=== PATIENT | female | born 1960 | race Caucasian/White ===

== ENCOUNTER 2019-11-09 16:31 | Outpatient (CLI) | payer OTHER, SELFPAY ==
--- NOTE | ~2019-11-09 | XR_ITS ---
EXAMINATION: XR chest 2V DATE: 11/09/2019 16:59 INDICATION: Upper respiratory infection, cough, shortness of breath TECHNIQUE: PA and lateral views of the chest are obtained. COMPARISON: None available FINDINGS: The lungs are free of acute opacities. There is no pleural effusion or pneumothorax. The ca rdiomediastinal silhouette is normal. There is mild thoracic spondylosis. IMPRESSION: 1. No acute cardiopulmonary abnormality. Reviewed, dictated and finalized at location A. [employer]
[2019-11-09 16:58] LABS: Basophils Absolute Auto 0.03 K/mm3 (0.00-0.10); Basophils Percent Auto 0.5 % (0.0-1.0); Eosinophils Percent Auto 1.6 % (1.0-6.0); Hematocrit 47.4 % (35.0-49.0); Hemoglobin 14.9 g/dL (12.0-15.0); Immature Granulocyte Absolute 0.02 K/mm3 (0.00-0.00); Immature Granulocyte Percent A 0.3 % (0.0-0.0); Lymphocytes Absolute Auto 2.41 K/mm3 (1.10-4.50); Lymphocytes Percent Auto 39.7 % (18.0-42.0); Mean Corpuscular HGB Conc 31.4 g/dL (32.0-36.0); Mean Corpuscular Hemoglobin 28.8 pg (27.0-31.0); Mean Corpuscular Volume 91.5 fL (78.0-102.0); Mean Platelet Volume 8.7 fl (9.2-11.8); Monocytes Absolute Auto 0.74 K/mm3 (0.10-0.90); Monocytes Percent Auto 12.2 % (2.0-11.0); Neutrophils Absolute Auto 2.8 K/mm3 (1.7-7.2); Neutrophils Percent Auto 45.7 % (50.0-70.0); Platelet Count Result 308 K/mm3 (150-420); Red Blood Count 5.18 M/mm3 (4.20-5.40); Red Cell Distribution Width 14.1 % (11.6-14.4); White Blood Count 6.1 K/mm3 (4.8-10.8)
[2019-11-09 17:14] LABS: Alanine Aminotransferase 36 U/L (14-59); Alkaline Phosphatase 104 U/L (46-116); Anion Gap 14.4 mmol/L (7-16); Aspartate Amino Transferase 27 U/L (15-37); Bilirubin,Total 0.3 mg/dL (0.00-1.00); Blood Urea Nitrogen 12 mg/dL (7-18); Carbon Dioxide 33 mmol/L (21-32); Chloride 100 mmol/L (98-108); Estimated Glomerular Filt Rate 59; Glucose 127 mg/dL (70-99); Osmolality Calculated 299 mOsm/kg (285-295); Potassium 3.4 mmol/L (3.5-5.1); Sodium 144 mmol/L (136-145); Total Protein 7.9 g/dL (6.4-8.2)
== END 2019-11-09 16:32 | disposition home or self-care (01) ==
LOC: CHSLAB 16:38
PROVIDERS: PCP Internal Medicine; Visit Provider Nurse Practitioner Family
DX: J06.9 Acute upper respiratory infection, unspecified (principal); J44.9 Chronic obstructive pulmonary disease, unspecified
CPT/HCPCS: 36415; 71046; 80053; 85025; 87040

== ENCOUNTER 2019-12-05 11:42 | Outpatient (CLI) | payer OTHER, SELFPAY ==
--- NOTE | ~2019-12-05 | XR_ITS ---
EXAMINATION: XR chest 2V DATE: 12/05/2019 11:59 INDICATION: Cough and fever TECHNIQUE: PA and lateral views of the chest are obtained. COMPARISON: 11/09/2019 FINDINGS: Patchy airspace opacities have developed in the left upper lung zone and right mid/lower zoë ng zone. There is no pleural effusion or pneumothorax. The cardiomediastinal silhouette is normal. Th ere is mild thoracic spondylosis. IMPRESSION: 1. Patchy opacities of the lungs, likely infectious. Recommend followup radiographs in 10-14 days aft er appropriate therapy to evaluate for improvement/resolution. Reviewed, dictated and finalized at location B. IMPRESSION: 1. Patchy opacities of the lungs, likely infectious. Recommend followup radiogr aphs in 10-14 days after appropriate therapy to evaluate for improvement/resolu tion.
[2019-12-05 11:52] LABS: Basophils Absolute Auto 0.04 K/mm3 (0.00-0.10); Basophils Percent Auto 0.3 % (0.0-1.0); Eosinophils Absolute Auto 0.22 K/mm3 (0.02-0.50); Eosinophils Percent Auto 1.5 % (1.0-6.0); Hematocrit 44.1 % (35.0-49.0); Hemoglobin 14.1 g/dL (12.0-15.0); Immature Granulocyte Absolute 0.07 K/mm3 (0.00-0.00); Immature Granulocyte Percent A 0.5 % (0.0-0.0); Lymphocytes Percent Auto 19.7 % (18.0-42.0); Mean Corpuscular Hemoglobin 29.5 pg (27.0-31.0); Mean Corpuscular Volume 92.3 fL (78.0-102.0); Mean Platelet Volume 8.9 fl (9.2-11.8); Monocytes Absolute Auto 1.44 K/mm3 (0.10-0.90); Monocytes Percent Auto 9.8 % (2.0-11.0); Neutrophils Absolute Auto 10.1 K/mm3 (1.7-7.2); Neutrophils Percent Auto 68.2 % (50.0-70.0); Platelet Count Result 326 K/mm3 (150-420); Red Blood Count 4.78 M/mm3 (4.20-5.40); Red Cell Distribution Width 14.8 % (11.6-14.4); White Blood Count 14.7 K/mm3 (4.8-10.8)
[2019-12-05 12:11] LABS: Influenza Control Valid (Valid)
== END 2019-12-05 11:43 | disposition home or self-care (01) ==
LOC: CHSLAB 11:44
PROVIDERS: PCP Internal Medicine; Visit Provider Internal Medicine
DX: R05 Cough (principal); R50.9 Fever, unspecified
CPT/HCPCS: 36415; 71046; 85025; 87804

== ENCOUNTER 2021-03-26 10:33 | Outpatient (RCR) | payer BC, SELFPAY ==
[2021-03-26 10:56] VITALS: BMI 46.0
[2021-03-26 11:00] VITALS: BMI 46.0
== END 2021-06-15 11:46 | disposition home or self-care (01) ==
LOC: ANHDMC 10:33
PROVIDERS: PCP Internal Medicine; Visit Provider Internal Medicine
DX: E11.9 Type 2 diabetes mellitus without complications (principal); Z71.3 Dietary counseling and surveillance
CPT/HCPCS: 97802

== ENCOUNTER 2021-06-30 18:31 | Outpatient (CLI) | payer BC, SELFPAY ==
--- NOTE | ~2021-06-30 | XR_ITS ---
EXAMINATION: XR chest 2V DATE: 06/30/2021 18:48 INDICATION: Chest pain, pneumonia follow-up TECHNIQUE: PA and lateral views of the chest are obtained. COMPARISON: 12/05/2019 FINDINGS: The lungs are free of acute opacities. There is no pleural effusion or pneumothorax. The ca rdiomediastinal silhouette is normal. There is mild thoracic spondylosis. IMPRESSION: 1. No acute cardiopulmonary abnormality. Reviewed, dictated and finalized at location A.
== END 2021-06-30 18:32 | disposition home or self-care (01) ==
PROVIDERS: PCP Internal Medicine
DX: J44.1 Chronic obstructive pulmonary disease with (acute) exacerbation (principal)
CPT/HCPCS: 71046

== ENCOUNTER 2021-07-14 08:27 | Outpatient (RCR) | payer BC, SELFPAY | END 2021-09-28 13:57 | disposition home or self-care (01) | LOC: ANHDMC 08:27 | PROVIDERS: PCP Internal Medicine; Visit Provider Internal Medicine | DX: E11.9 Type 2 diabetes mellitus without complications (principal) | CPT/HCPCS: 99199 ==

== ENCOUNTER 2021-12-25 07:53 | Outpatient (CLI) | payer BC, SELFPAY ==
--- NOTE | 2022-01-04 08:46 | WPDSLEEPSTUD ---
Sleep Study Date of Study: 12/25/21 Ordering Provider: Lucio Bui MD Interpreting Physician: Courtney Britton MD Sleep Study Type: Polysomnogram Height: 1.6 m Weight: 118.026 kg Body Mass Index: 46.0 Neck Circumference (inches): 22 [place]: 12 Reason for Sleep Study History of severe obstructive sleep apnea with difficultly using PAP, wants to try treatment again. * 04/29/2018, full night CPAP titration at [facility] CPAP titrated 19 cm at the highest,, switched to BiPAP 16/12 gradually increased to 18/12, with an acceptable pressure of BIPAP 20/14 with a small amount of non-supine REM. BMI was 44 at the time of the this study. No suuplemental O2 was used. * 02/03/2018, basic sleep study with AHI of 86.1 Sleep History Damaris Jacinto is a 61 year old woman with severe obstructive sleep apnea who could not use PAP in the past due to claustrophobia. She has COPD on O2 around the clock, and morbid obesity. She wakes up throughout the night including lugger hours. She has excessive daytime sleepiness. She occasionally awakens from sleep feeling short of breath, and occasionally awakens at night with heartburn, belching or coughing. She frequently snores, and is constantly loud enough that others complain about it. She frequently has trouble sleeping with a cold but this has improved since she started wearing oxygen at night. She frequently wakes up gasping for breath at night. She occasionally has breathing problems at night observed by others. She rarely sweats excessively at night. She occasionally notices her heart pounding or beating irregularly at night. She frequently falls asleep during the day, frequently falls asleep involuntarily but denies falling asleep while driving. She rarely has loss of muscle tone with strong emotion. She does not work so she does not notice difficulty in the daytime due to excessive sleepiness. She does not feel paralyzed on waking or falling asleep. She rarely has vivid dreamlike scenes upon awakening or falling asleep. She rarely feels afraid to go to sleep. She rarely has nightmares. She rarely remembers her dreams and rarely has racing thoughts. She occasionally feels sad or depressed. She rarely has anxiety. She frequently has muscular tension and frequently notices parts of her body jerking. She rarely kicks at night. She frequently has crawling and aching feelings in her legs, occasionally has leg pain at night. She denies morning jaw pain. She does not grind her teeth during sleep. She occasionally is bothered by pain during the day and occasionally awakened by pain at night. She rarely wakes up feeling stiff the morning. She occasionally wakes up with sore achy muscles. She rarely wakes up with pain in the neck and spine. She has bowel disturbances and abdominal pains. She has rare morning headaches. She rarely awakens feeling refreshed. She rarely has memory or concentration problem. Normal bedtime is 10:00 p.m., falling asleep within 10 minutes, typically waking 2-3 times at night for 15 minutes or longer. While awake, she goes to the bathroom and does a nebulized treatment. She wakes the morning at 7:00 a.m.. Her weekend schedule is similar. Her sleep is often disturbed by her oxygen cannula coming off. She takes naps in the afternoon evening. A short nap may be refreshing. She is usually drowsy for 1 hour on waking. She feels better in the morning compared to other times of day. Habits: Tobacco 4 cigarettes per day. No caffeine, alcohol or recreational drugs. [facility] Past Medical History Medical History (Updated 01/04/22 @ 08:52 by Courtney Britton MD) Acute otitis externa of left ear CAD (coronary artery disease) s/p PCI COPD (chronic obstructive pulmonary disease) Depression GERD (gastroesophageal reflux disease) HLD (hyperlipidemia) HTN (hypertension) Noncompliance Obstructive sleep apnea Oxygen dependent PAD (peripheral artery disease) s/p RLE ang
[2022-01-04 09:41] VITALS: BMI 46.0
== END 2021-12-26 06:44 | disposition home or self-care (01) ==
LOC: ANHCSM 07:54
PROVIDERS: PCP Internal Medicine; Visit Provider Internal Medicine Pulmonary Disease
DX: G47.33 Obstructive sleep apnea (adult) (pediatric) (principal); E66.01 Morbid (severe) obesity due to excess calories; Z68.42 Body mass index [BMI] 45.0-49.9, adult
CPT/HCPCS: 95810

== ENCOUNTER 2022-03-05 07:30 | Outpatient (CLI) | payer BC, SELFPAY ==
--- NOTE | 2022-03-30 14:14 | WPDSLEEPSTUD ---
Sleep Study Date of Study: 03/05/22 Ordering Provider: Brandon Urbina APRN Interpreting Physician: Priscila Turner DO Sleep Study Type: BiPAP Titration Height: 1.6 m Weight: 117.934 kg Body Mass Index: 46.0 Neck Circumference (inches): 22 [place]: 12 Reason for Sleep Study This basic nocturnal polysomnogram on December 25, 2021 shows severe obstructive sleep apnea syndrome, apnea-hypopnea index is 82.2, profound hypoxemia to 59%, and 47.3% of the night spent below 88%.??Oxygen was used to allow her to fall asleep as she uses oxygen at home around the clock.? This was restarted at 1 L/min as she had sustained hypoxemia below 88%.? She was eventually titrated up to 5 L/min. Sleep History Damaris Jacinto is a 61 year old woman with severe obstructive sleep apnea who could not use PAP in the past due to claustrophobia.? She has COPD on O2 around the clock, and morbid obesity. ? 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 She has excessive daytime sleepiness.? She occasionally awakens from sleep feeling short of breath, and occasionally awakens at night with heartburn, belching or coughing.? She frequently snores, and is constantly loud enough that others complain about it.? She frequently has trouble sleeping with a cold but this has improved since she started wearing oxygen at night.? She frequently wakes up gasping for breath at night.? She occasionally has breathing problems at night observed by others.? She rarely sweats excessively at night.? She occasionally notices her heart pounding or beating irregularly at night.? She frequently falls asleep during the day, frequently falls asleep involuntarily but denies falling asleep while driving.? She rarely has loss of muscle tone with strong emotion.? She does not work so she does not notice difficulty in the daytime due to excessive sleepiness.? She does not feel paralyzed on waking or falling asleep.? She rarely has vivid dreamlike scenes upon awakening or falling asleep.? She rarely feels afraid to go to sleep.? She rarely has nightmares.? She rarely remembers her dreams and rarely has racing thoughts.? She occasionally feels sad or depressed.? She rarely has anxiety.? She frequently has muscular tension and frequently notices parts of her body jerking.? She rarely kicks at night.? She frequently has crawling and aching feelings in her legs, occasionally has leg pain at night.? She denies morning jaw pain.? She does not grind her teeth during sleep.? She occasionally is bothered by pain during the day and occasionally awakened by pain at night.? She rarely wakes up feeling stiff the morning.? She occasionally wakes up with sore achy muscles.? She rarely wakes up with pain in the neck and spine.? She has bowel disturbances and abdominal pains. ? She has rare morning headaches.? She rarely awakens feeling refreshed.? She rarely has memory or concentration problem. Normal bedtime is 10:00 p.m., falling asleep within 10 minutes, typically waking 2-3 times at night for 15 minutes or longer.? While awake, she goes to the bathroom and does a nebulized treatment.? She wakes the morning at 7:00 a.m..? Her weekend schedule is similar.? Her sleep is often disturbed by her oxygen cannula coming off. She takes naps in the afternoon evening.? A short nap may be refreshing.? She is usually drowsy for 1 hour on waking.? She feels better in the morning compared to other times of day. Habits: ? Tobacco 4 cigarettes per day.? No caffeine, alcohol or recreational drugs. [facility] Past Medical History Medical History Acute otitis externa of left ear CAD (coronary artery disease) s/p PCI COPD (chronic obstructive pulmonary disease) Depression GERD (gastroesophageal reflux disease) HLD (hyperlipidemia) HTN (hypertension) Noncompliance Obstructive sleep apnea Oxygen dependent PAD (peripheral artery disease) s/p RLE angioplasty Family History Famil
[2022-03-30 23:40] VITALS: BMI 46.0
== END 2022-03-06 06:03 | disposition home or self-care (01) ==
LOC: ANHCSM 07:30
PROVIDERS: PCP Internal Medicine; Visit Provider Nurse Practitioner Family
DX: G47.33 Obstructive sleep apnea (adult) (pediatric) (principal)
CPT/HCPCS: 95811

== ENCOUNTER 2022-05-18 08:46 | Outpatient (CLI) | payer BC, SELFPAY ==
--- NOTE | ~2022-05-18 | CT_ITS ---
EXAMINATION: CT lung screening DATE: 05/18/2022 09:05 INDICATION: Personal history of nicotine dependence, current smoker with 40 pack year history TECHNIQUE: Computed tomography (CT) of the chest was performed without intravenous contrast. The dose -length product (DLP) was 217.74 mGy-cm. 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 COMPARISON: None FINDINGS: There is mild emphysema. There is a 4 mm nodule in the right upper lobe on image 54. There is mild atelectasis of the lingula and lower lobes. Calcified pulmonary nodules are consistent with o ld granulomatous disease. No pathologically enlarged thoracic lymph nodes are identified. The heart s ize is normal. Calcified coronary artery atherosclerosis is noted. There is mild thoracic spondylosis . There is an 11 mm soft tissue density mass of the left adrenal gland. IMPRESSION: 1. Lung-RADS category 2S: Benign appearance or behavior. Continue annual screening with noncontrast l ow-dose chest CT in 12 months. 2. 11 mm soft tissue density mass of the left adrenal gland, probable adenoma. Attention on next lung cancer screening CT is recommended. Reviewed, dictated and finalized at location B. IMPRESSION: 1. Lung-RADS category 2S: Benign appearance or behavior. Continue annual screen ing with noncontrast low-dose chest CT in 12 months. 2. 11 mm soft tissue density mass of the left adrenal gland, probable adenoma. Attention on next lung cancer screening CT is recommended.
== END 2022-05-18 08:47 | disposition home or self-care (01) ==
LOC: ANHIMG 08:50
PROVIDERS: PCP Internal Medicine; Visit Provider Internal Medicine Pulmonary Disease
DX: Z12.2 Encounter for screening for malignant neoplasm of respiratory organs (principal); Z87.891 Personal history of nicotine dependence; E27.9 Disorder of adrenal gland, unspecified
CPT/HCPCS: 71271

== ENCOUNTER 2022-06-21 08:37 | Outpatient (CLI) | payer BC, SELFPAY ==
--- NOTE | 2022-06-21 09:50 | EST_ITS ---
Patient Info Name: Damaris Jacinto Age: 61 years : 1960 Gender: Female Ht: 63 in Wt: 229 lbs BSA: 2.20 m2 HR: 93 bpm BP: 133 / 67 mmHg Heart Rhythm: Sinus Rhythm Technical Quality: Excellent Exam Date: 06/21/2022 10:03 AM Exam Location: [facility] Patient Status: Outpatient Admit Date: 06/21/2022 Staff Ordering Physician: Sandra, Veronica Oscar APRN Attending Provider: Peri GREGORIO CEP Exercise Technologist: Arabella Daley CRT Exercise Physician: Elsy Gregorio CEP Exam Type: CA stress julia w NM Study Info Indications ChestPain - A nuclear stress test was performed. History/Risk Factors Hypertension: Yes Diabetes Mellitus: Yes History/Risk Factors Diabetes. Hypertension. Chest Pain. PVD. Summary 1. 1. Negative lexiscan stress test for ischemic ST changes by ECG criteria. 2. 2. Stable hemodynamics throughout the test. 3. 3. Nuclear scan to follow and will be reported separately. Please correlate with it. Protocol: LEXISCAN Stress ECG Details Stage: REST Duration (min): 1 min : 2 sec HR (bpm): 93 SBP (mmHg): 133 DBP (mmHg): 67 Stage: REST Duration (min): 5 min : 45 sec HR (bpm): 91 SBP (mmHg): 133 DBP (mmHg): 67 Stage: STAGE 1 Duration (min): 0 min : 12 sec HR (bpm): 87 SBP (mmHg): 133 DBP (mmHg): 67 Stage: RECOVERY Duration (min): 0 min : 47 sec HR (bpm): 107 SBP (mmHg): 133 DBP (mmHg): 67 Stage: RECOVERY Duration (min): 1 min : 47 sec HR (bpm): --- SBP (mmHg): 154 DBP (mmHg): 74 Stage: RECOVERY Duration (min): 2 min : 47 sec HR (bpm): 107 SBP (mmHg): 144 DBP (mmHg): 69 Stage: RECOVERY Duration (min): 3 min : 47 sec HR (bpm): 103 SBP (mmHg): 131 DBP (mmHg): 68 Stage: RECOVERY Duration (min): 4 min : 47 sec HR (bpm): 102 SBP (mmHg): 128 DBP (mmHg): 68 Stage: RECOVERY Duration (min): 5 min : 47 sec HR (bpm): 100 SBP (mmHg): 139 DBP (mmHg): 68 Stage: RECOVERY Duration (min): 6 min : 3 sec HR (bpm): 100 SBP (mmHg): 139 DBP (mmHg): 68 Rest HR: 91 bpm Peak HR: 110 bpm Rest Sys BP: 133 mmHg Peak Sys BP: 154 mmHg Max Pred HR: 159 bpm % Max Pred HR: 69 % Target HR: 135 bpm Max RPP: 16,940 bpm*mmHg Termination Reason: Completion of Protocol Cardiac Symptoms: Stomach Discomfort, Shortness of breath Total Time: 0 min : 12 sec Rest Beard BP: 67 mmHg Peak Beard BP: 74 mmHg Total Dose: 0.4 mg Resting ECG Normal sinus rhythm, cannot r/o septal infarct, age indeterminate, borderline T wave in diffuse leads. Stress ECG No abnormal ST/T wave changes. Arrhythmias No arrhythmias were observed during the examination. Report Signatures
--- NOTE | 2022-06-21 14:59 | WPDCARIOSTRE ---
Nuclear Stress Test INDICATIONS Indications: Chest pain PROCEDURE Procedure Performed: Myocardial Perf Spect-Multi Procedure: Patient underwent a lexiscan stress test and immediately was injected with 33 mCi of cardiolyte. Multiple tomographic images were obtained. These are of good quality. No evidence of perfusion defects with stress testing. A separate resting images were obtained after patient was injected with 11 mCi of cardiolyte. Multiple tomographic images were obtained. These are of good quality. There is evidence of moderate size and moderate intensity anteroapical perfusion defects. CONCLUSION Conclusion: 1. Normal myocardial perfusion imaging demonstrating no perfusion defects with stress imaging. 2. No reversible ischemia. 3. Left ventriculogram is normal with ejection fraction of 63% and no wall motion abnormalities. 4. TID score is normal at 0.89.
== END 2022-06-21 08:38 | disposition home or self-care (01) ==
LOC: CHSIMG 08:39
PROVIDERS: PCP Internal Medicine; Visit Provider Internal Medicine Cardiovascular Disease
DX: I25.10 Atherosclerotic heart disease of native coronary artery without angina pectoris (principal); R07.9 Chest pain, unspecified; R06.02 Shortness of breath; I73.9 Peripheral vascular disease, unspecified; I10 Essential (primary) hypertension
CPT/HCPCS: 78452; 93017; A9502; J2785

== ENCOUNTER 2022-12-24 07:53 | Emergency (ER) | payer MEDICARE, SELFPAY ==
[2022-12-24] VITALS (44 sets, daily range): BP systolic 112–154; BP diastolic 61–88; PULSE 76–95; RESP 16–24; TEMP 36.5–36.9; O2SAT 89–100
--- NOTE | ~2022-12-24 | XR_ITS ---
EXAMINATION: XR chest 1V portable DATE: 12/24/2022 08:07 INDICATION: Dyspnea. Left chest pain. TECHNIQUE: A single frontal view of the chest was obtained. COMPARISON: Chest 2 views 06/30/21, chest CT 05/18/2022 FINDINGS: The chest demonstrates clear lungs without pneumonia, pleural effusion, or pneumothorax. Th e heart size is normal. IMPRESSION: 1. No acute cardiopulmonary disease. Reviewed, dictated and finalized at location A.
--- NOTE | 2022-12-24 07:55 | ECG_ITS ---
Measurements Intervals [place] Rate: 89 P: 53 MO: 126 QRS: 54 QRSD: 101 T: 91 QT: 387 QTc: 473 Interpretive Statements SINUS RHYTHM WITH OCCASIONAL ECTOPIC PREMATURE COMPLEXES NONSPECIFIC ST ABNORMALITY BORDERLINE ECG NO PREVIOUS ECG AVAILABLE FOR COMPARISON Electronically Signed On 12-24-2022 16:04:34 CDT by Kevin Sutton M.D.
--- NOTE | 2022-12-24 07:56 | ED.GENADULT ---
HPI - General Adult General Chief complaint: Shortness of Breath/Dyspnea <Jose Loo DO - Last Filed: 12/26/22 11:53> Stated complaint: shortness of breath <Jose Loo DO - Last Filed: 12/26/22 11:53> Time Seen by Provider: 12/24/22 07:55 <Jose Loo DO - Last Filed: 12/26/22 11:53> History of Present Illness HPI narrative: Damaris is a 62F with a PMH of COPD on 4L, JESSICA non-compliant with home bipap, obesity, CAD, HLD, DMII, GERD and depression that presented to the ED with dyspnea that has been getting worse for 5 days. She was started on prednisone and cefdinir by Dr. Finn 5 days ago. It is accompanied by cough, sputum production but no N/V, diarrhea, fevers. There is some chest heaviness. <Jose Loo DO - Last Filed: 12/26/22 11:53> Related Data Home medications: Home Medications Medication Instructions Recorded Confirmed aspirin 81 mg chewable tablet 81 mg PO DAILY 11/17/20 12/24/22 (Apoorva Chewable Low Dose Aspirin) atorvastatin 40 mg tablet 40 mg PO DAILY 11/17/20 12/24/22 clopidogrel 75 mg tablet 75 mg PO DAILY 11/17/20 12/24/22 fexofenadine 180 mg tablet 180 mg PO DAILY 11/17/20 12/24/22 (Kellee Allergy) metoprolol succinate 25 mg 25 mg PO DAILY 11/17/20 12/24/22 tablet,extended release 24 hr montelukast 10 mg tablet 10 mg PO DAILY 11/17/20 12/24/22 pantoprazole 40 mg tablet,delayed 40 mg PO QAM 11/17/20 12/24/22 release multivit-iron 18 mg-folic acid 400 1 tablet PO DAILY 07/23/21 12/24/22 mcg-calcium 450 mg-minerals tablet (One Daily [facility]) empagliflozin 25 mg tablet 25 mg PO DAILY 04/27/22 12/24/22 (Jardiance) metformin 500 mg tablet,extended 500 mg PO BID 04/27/22 12/24/22 release 24 hr semaglutide 7 mg tablet (Rybelsus) 7 mg PO DAILY 04/27/22 12/24/22 losartan 100 1 tablet PO DAILY 12/24/22 12/24/22 mg-hydrochlorothiazide 25 mg tablet <Jose Loo DO - Last Filed: 12/26/22 11:53> Allergies/adverse reactions: Allergies Allergy/AdvReac Type Severity Reaction Status Date / Time lisinopril AdvReac Mild Cough Verified 11/26/22 13:13 <Jose Loo DO - Last Filed: 12/26/22 11:53> Review of Systems Review of Systems: All systems reviewed & are unremarkable except as noted in HPI and below <Jose Loo DO - Last Filed: 12/26/22 11:53> ON LICENSE OF [facility] Past Medical History Medical History: Medical History Chronic respiratory failure with hypoxia and hypercapnia COPD with emphysema Coronary artery disease Depression Dyslipidemia Gastroesophageal reflux disease Hypertension Noncompliance Obstructive sleep apnea Oxygen dependent Peripheral arterial disease Type 2 diabetes mellitus <Jose Loo DO - Last Filed: 12/26/22 11:53> Surgical History Surgical History: Surgical History History of angioplasty of peripheral vessel Right lower extremity. History of cardiac catheterization History of coronary artery stent placement <Jose Loo DO - Last Filed: 12/26/22 11:53> Family History Family History: Family History Father Heart disease Acute myocardial infarction Mother Hypertension COPD (chronic obstructive pulmonary disease) Sibling Breast cancer <Jose Loo DO - Last Filed: 12/26/22 11:53> Social History Social History: Social History (Updated 12/24/22 @ 22:08 by Mer Mcintosh PA-C) Social History: Surrogate medical decision maker: Abebe Jacinto, spouse. Code status: Full code. Smoking packs per day: 2 Smoking cigarettes per day: 40.0 Years smoked: 42 Smoking pack-years: 84.00 Smoking status: Current every day smoker Tobacco type: cigarettes Second hand tobacco smoke exposure: Yes Additional smoking assessment comments: Smokes 2 to 3
[2022-12-24 08:23] LABS: Base Excess ABG 15.9 mmol/L (0-2); HCO3 ABG 44.4 mmol/L (23-29); Oxygen Content ABG 16.6 %vol (16.0-22.0); Oxygen Saturation ABG 89.9 % (95-97); Oxyhemoglobin 84.9 % (94-100); PO2 ABG 56.8 mmHg (80-90); Total Hemoglobin 13.9 g/dL (12.0-18.0)
[2022-12-24 08:26] LABS: Basophils Absolute Auto 0.01 K/mm3 (0.00-0.10); Basophils Percent Auto 0.1 % (0.0-1.0); Eosinophils Absolute Auto 0.03 K/mm3 (0.02-0.50); Eosinophils Percent Auto 0.2 % (1.0-6.0); Hematocrit 42.5 % (35.0-49.0); Immature Granulocyte Absolute 0.09 K/mm3 (0.00-0.00); Immature Granulocyte Percent A 0.6 % (0.0-0.0); Lymphocytes Absolute Auto 1.24 K/mm3 (1.10-4.50); Lymphocytes Percent Auto 8.9 % (18.0-42.0); Mean Corpuscular HGB Conc 30.6 g/dL (32.0-36.0); Mean Corpuscular Hemoglobin 29.3 pg (27.0-31.0); Mean Corpuscular Volume 95.7 fL (78.0-102.0); Mean Platelet Volume 8.5 fl (9.2-11.8); Monocytes Absolute Auto 0.59 K/mm3 (0.10-0.90); Monocytes Percent Auto 4.2 % (2.0-11.0); Platelet Count Result 435 K/mm3 (150-420); Red Blood Count 4.44 M/mm3 (4.20-5.40); Red Cell Distribution Width 13.1 % (11.6-14.4); White Blood Count 13.9 K/mm3 (4.8-10.8)
[2022-12-24 08:27] LABS: Device NASAL CANNULA; Modified Allen's Test Pass; PCO2 ABG 72.7 mmHg (35-45); Site Drawn LEFT RADIAL
[2022-12-24] MEDS: methylPREDNISolone SOD SUCC 125 MG VIAL IV PUSH (08:31)
[2022-12-24] MEDS: IPRATROPIUM 0.5 MG/ALBUTEROL SULFATE 2.5 MG AMPUL.NEB 3 ML INHALATION (08:34)
[2022-12-24] MEDS: LORazepam INJ (*CRX) 2 MG/ML VIAL 1 MG IV PUSH (08:44)
[2022-12-24 08:46] LABS: INR 0.9; Prothrombin Time 10.3 Seconds (9.50-12.10)
[2022-12-24 09:40] LABS: Lactic Acid Reflex 2.9 mmol/L (0.7-2.0)
[2022-12-24 09:42] LABS: Alanine Aminotransferase 28 U/L (6-35); Albumin Level 4.3 g/dL (3.5-5.1); Alkaline Phosphatase 97 U/L (38-126); Anion Gap 12.99999 mmol/L (8-16); Aspartate Amino Transferase 37 U/L (14-36); Bilirubin,Total 0.4 mg/dL (0.2-1.3); Blood Urea Nitrogen 21 mg/dL (7-17); Carbon Dioxide > 40 mmol/L (22-30); Chloride 83 mmol/L (98-107); Estimated Glomerular Filt Rate > 60; Glucose 145 mg/dL (65-110); Osmolality Calculated 288 mOsm/kg (285-295); Sodium 136 mmol/L (137-145)
[2022-12-24 09:48] LABS: Influenza A QL RT-PCR Negative (Negative); Influenza B QL RT-PCR Negative (Negative); SARS-CoV-2 RNA PCR Negative (Negative)
[2022-12-24 09:52] LABS: Troponin I < 0.012 ng/mL (0.000-0.034)
[2022-12-24 09:57] LABS: RSV RNA, RT-PCR Negative (Negative)
[2022-12-24 10:50] LABS: NT Pro B Type Natriuretic Pept 196 pg/mL (19.9-100)
[2022-12-24 11:10] LABS: Base Excess ABG 13.9 mmol/L (0-2); HCO3 ABG 45.9 mmol/L (23-29); Oxygen Content ABG 17.7 %vol (16.0-22.0); Oxygen Saturation ABG 93.6 % (95-97); Oxyhemoglobin 89.6 % (94-100); PO2 ABG 76.4 mmHg (80-90); pH ABG 7.27 (7.35-7.45)
[2022-12-24 11:12] LABS: PCO2 ABG 103.4 mmHg (35-45)
[2022-12-24 11:13] LABS: Device BIPAP; Modified Allen's Test Pass; Site Drawn LEFT RADIAL
[2022-12-24 11:15] LABS: Expiratory Pressure 6 cmH2O; Inspiratory Pressure 12 cmH2O
[2022-12-24 11:23] LABS: Reflex Lactic Acid Yes or No Add Lactic
[2022-12-24] MEDS: SODIUM CHLORIDE 0.9% IV 1,000 ML 999 ML IV CONT (11:33)
[2022-12-24] MEDS: ALBUTEROL SULFATE NEB 2.5 MG/3 ML INH 10 MG INHALATION (11:40)
--- NOTE | 2022-12-24 12:29 | PC.NURSE ---
pt up to commode with minimal assist tolerated well. pt continues with bipap. tolerating well.
[2022-12-24 12:31] LABS: Lactic Acid 2.5 mmol/L (0.4-2.0)
[2022-12-24 13:05] LABS: Base Excess ABG 7.5 mmol/L (0-2); HCO3 ABG 38.3 mmol/L (23-29); Oxygen Content ABG 18.4 %vol (16.0-22.0); Oxygen Saturation ABG 98.1 % (95-97); Oxyhemoglobin 94.9 % (94-100); PO2 ABG 137.4 mmHg (80-90); Total Hemoglobin 13.6 g/dL (12.0-18.0); pH ABG 7.24 (7.35-7.45)
[2022-12-24 13:08] LABS: PCO2 ABG 91.3 mmHg (35-45)
[2022-12-24 13:09] LABS: Device BIPAP; Modified Allen's Test Pass; Site Drawn LEFT RADIAL
[2022-12-24 13:10] LABS: Expiratory Pressure 8 cmH2O; Inspiratory Pressure 16 cmH2O
[2022-12-24] MEDS: MAGNESIUM SULF 2 GM/WATER 50ML 2 GM/50 ML BAG IVPB (13:15)
--- NOTE | 2022-12-30 12:09 | PC.NURSE ---
FINAL BLOOD CULTURE REPORT: No growth after 5 days, no further treatment at this time.
== END 2022-12-24 14:08 | disposition short-term general hospital (02) ==
PROVIDERS: Family Medicine; Emergency Provider Emergency Medicine; PCP Internal Medicine
DX: J96.22 Acute and chronic respiratory failure with hypercapnia (principal); G47.33 Obstructive sleep apnea (adult) (pediatric); I25.10 Atherosclerotic heart disease of native coronary artery without angina pectoris; E78.5 Hyperlipidemia, unspecified; J43.9 Emphysema, unspecified; E11.9 Type 2 diabetes mellitus without complications; F17.210 Nicotine dependence, cigarettes, uncomplicated; Z79.82 Long term (current) use of aspirin; Z99.81 Dependence on supplemental oxygen; Z79.84 Long term (current) use of oral hypoglycemic drugs; Z20.822 Contact with and (suspected) exposure to COVID-19
CPT/HCPCS: 36415; 36600; 71045; 80053; 82805; 83605; 83880; 84145; 84484; 85025; 85610; 87040; 87637; 93005; 94640; 96361; 96365; 96375; 99285; J2060; J2930; J3475; J7030

== ENCOUNTER 2022-12-24 15:08 | Inpatient (IN) | payer MEDICARE, SELFPAY ==
[2022-12-24] VITALS (10 sets, daily range): BP systolic 125–154; BP diastolic 52–73; PULSE 62–90; RESP 19–33; TEMP 35.9–36.4; O2SAT 95–98; BMI 38.7
--- NOTE | ~2022-12-24 | XR_ITS ---
EXAMINATION: XR chest 1V portable INDICATION: Chest pain TECHNIQUE: Portable AP chest at 0943 hours COMPARISON: 12/29/2022 FINDINGS: There are minimal airspace opacities of the lung bases. No pleural effusion or pneumothorax . The cardiomediastinal silhouette is normal. IMPRESSION: 1. Minimal bibasilar airspace opacity, likely atelectasis. Reviewed, dictated and finalized at location B.
--- NOTE | ~2022-12-24 | XR_ITS ---
Portable chest x-ray Comparison: 12/25/2022 Clinical History: Pneumonia Findings: Lungs are clear, without focal consolidation or pleural effusion. Cardiomediastinal silho uette is stable. Bones and soft tissues are unremarkable. Impression: Normal chest. Reviewed, dictated and finalized at [facility]. Impression: Normal chest.
--- NOTE | ~2022-12-24 | XR_ITS ---
EXAMINATION: XR chest 1V portable INDICATION: Shortness of breath TECHNIQUE: Portable AP chest at 0844 hours COMPARISON: 12/24/2022 FINDINGS: The lungs are free of acute opacities. No pleural effusion or pneumothorax. The cardiomedia stinal silhouette is normal. IMPRESSION: 1. No acute cardiopulmonary abnormality. Reviewed, dictated and finalized at location A.
--- NOTE | 2022-12-24 15:35 | PM.IMHP ---
H&P: HPI History of Present Illness Date/Time: 12/24/22 15:35 Chief Complaint: Acute on chronic respiratory failure and COPD exacerbation. Narrative: This is a 62-year-old female smoker ( states she smokes 2 to 3 packs of cigarettes a day) with chronic respiratory failure, COPD, emphysema, severe obstructive sleep apnea syndrome for which she has been intolerant to BiPAP, coronary artery disease, peripheral arterial disease, hypertension, dyslipidemia, and type 2 diabetes mellitus who is being admitted to the IMU from the emergency department the [facility] with acute on chronic hypercapnic respiratory failure and COPD exacerbation. Patient provides the following history. Her provides additional information with the patient's permission. She has a history of noncompliance and states she cannot use her BiPAP at nighttime because the pressure is too much. She is on 5 L nasal cannula during the day and she has been using that at nighttime as well. The last 4 to 5 days she has felt increasingly short of breath on lesser and lesser exertion and reports significant wheezing and cough productive of clear colored sputum. Five days ago she was prescribed a prednisone taper and cefdinir by her primary care doctor but that has not helped much. She has been using her nebulizers at home, reportedly every 2 hours last night, and despite this she was extremely short of breath this morning and came to the ER for evaluation. She has chronic hypoxia and hypercarbia and initially her pH was compensated however several hours into her ER visit she apparently decompensated and a repeat gas showed a pH of 7.272, pCO2 103.4, bicarb 45.9. She was started on BiPAP and she has had several adjustments with a little improvement in her pCO2. She has thus far remained completely awake and alert and oriented x4 and she does not wish to be intubated at this juncture. Initially she stated she would not want to be intubated whatsoever however with further discussion she would be okay should her condition not improved. Currently her only complaint is that of the pressure from the BiPAP mask and of being hungry. She denies fever, chills, sweats, sore throat, chest pain, pleuritic pain, palpitations, nausea, vomiting, and diarrhea. Review of Systems Review of Systems: Twelve systems were reviewed and are negative except for as per HPI. [facility] Past Medical History Medical History Chronic respiratory failure with hypoxia and hypercapnia COPD with emphysema Coronary artery disease Depression Dyslipidemia Gastroesophageal reflux disease Hypertension Noncompliance Obstructive sleep apnea Oxygen dependent Peripheral arterial disease Type 2 diabetes mellitus Surgical History Surgical History History of angioplasty of peripheral vessel Right lower extremity. History of cardiac catheterization History of coronary artery stent placement Family History Family History Father Heart disease Acute myocardial infarction Mother Hypertension COPD (chronic obstructive pulmonary disease) Sibling Breast cancer Social History Social History (Updated 12/24/22 @ 22:08 by Mer Mcintosh PA-C) Social History: Surrogate medical decision maker: Abebe Jacinto, spouse. Code status: Full code. Smoking packs per day: 2 Smoking cigarettes per day: 40.0 Years smoked: 42 Smoking pack-years: 84.00 Smoking status: Current every day smoker Tobacco type: cigarettes Second hand tobacco smoke exposure: Yes Additional smoking assessment comments: Smokes 2 to 3 packs of cigarettes a day for 40+ years. Alcohol intake: never Substance use: never Lack of Transportation: No Lack of Food: Never True Current Housing: I Have Housing Concerned About Future Housing: No
[2022-12-24 15:49] LABS: Alveolar/Arterial O2 Gradient 100.7 mmHg; Base Excess ABG 13.1 mEq/l (+/-2.0); Carboxyhemoglobin 2.5 % THb (0-2.0); Fractional Inspired Oxygen 40 %; HCO3 ABG 44.3 mEq/l (22.0-26.0); Methemoglobin ABG 0.3 %THb (0-1.5); Oxygen Content ABG 17.1 %vol (16.0-22.0); Oxyhemoglobin 89.9 % THb (90.0-100.0); PO2 ABG 71.7 mmHg (80.0-100.0); PO2 FiO2 Ratio Arterial Blood 1.79 %; Reduced Hemoglobin 7.3 %THb (0-5.0); Total Hemoglobin 13.5 g/dL (12.0-18.0)
[2022-12-24 15:53] LABS: pH ABG 7.273 (7.350-7.450)
[2022-12-24 15:54] LABS: Device BIPAP; PCO2 ABG 98.1 mmHg (35.0-45.0); Site Drawn LEFT BRACHIAL
[2022-12-24 15:55] LABS: Expiratory Pressure 6 cmH2O; Inspiratory Pressure 12 cmH2O
[2022-12-24 16:05] LABS: Lactic Acid Reflex 1.5 mmol/L (0.7-2.0)
[2022-12-24 16:07] LABS: Blood Urea Nitrogen 21 mg/dL (7-17); CRP 1.7 mg/dL (<1.0); Calcium 8.4 mg/dL (8.4-10.2); Carbon Dioxide > 40 mmol/L (22-30); Chloride 85 mmol/L (98-107); Estimated CRCL calculation 81 ml/min; Estimated Glomerular Filt Rate > 60; Glucose 151 mg/dL (65-110); Magnesium 2.6 mg/dL (1.6-2.3); Potassium 3.8 mmol/L (3.4-5.0); Sodium 138 mmol/L (137-145)
[2022-12-24 16:10] LABS: Hemoglobin A1C 5.8 % (<5.7)
[2022-12-24 16:45] LABS: Procalcitonin 0.1 ng/mL
[2022-12-24 17:38] LABS: Alveolar/Arterial O2 Gradient 96.7 mmHg; Base Excess ABG 16.4 mEq/l (+/-2.0); Fractional Inspired Oxygen 40 %; HCO3 ABG 47.3 mEq/l (22.0-26.0); Oxygen Content ABG 17.5 %vol (16.0-22.0); Oxygen Saturation ABG 93.6 % (95.0-100.0); Oxyhemoglobin 91.8 % THb (90.0-100.0); PO2 ABG 78.7 mmHg (80.0-100.0); PO2 FiO2 Ratio Arterial Blood 1.97 %; Total Hemoglobin 13.5 g/dL (12.0-18.0); pH ABG 7.313 (7.350-7.450)
[2022-12-24 17:41] LABS: Device BIPAP; Inspiratory Pressure 20 cmH2O; Modified Allen's Test Pass; PCO2 ABG 95.5 mmHg (35.0-45.0); Site Drawn LEFT RADIAL
[2022-12-24 17:42] LABS: Expiratory Pressure 10 cmH2O
[2022-12-24] MEDS: methylPREDNISolone SOD SUCC 125 MG VIAL IV PUSH (17:45)
[2022-12-24 18:07] LABS: Glucose Point of Care 148 mg/dl (65-105)
--- NOTE | 2022-12-24 19:49 | PCRCNOTE ---
Changed settings on BiPAP to what the physician ordered and patient was only getting VT of 168 and could not tolerate the pressure. Left patient on with a backup rate of 22 and increased rise to 5 from 3. Call physician but wasn't able to get in contact will try again at 1999.
[2022-12-24 20:13] LABS: Glucose Point of Care 148 mg/dl (65-105)
[2022-12-24] MEDS: LEVALBUTEROL NEB 1.25 MG/3 ML INHALATION (20:41)
[2022-12-24] MEDS: IPRATROPIUM BR 0.02% INH SOLN 0.5 MG/2.5 ML VIAL INHALATION (20:41)
[2022-12-24 22:02] LABS: Alveolar/Arterial O2 Gradient 146.2 mmHg; Base Excess ABG 16.3 mEq/l (+/-2.0); Fractional Inspired Oxygen 40 %; HCO3 ABG 44.5 mEq/l (22.0-26.0); Oxygen Content ABG 16.4 %vol (16.0-22.0); Oxygen Saturation ABG 88.1 % (95.0-100.0); Oxyhemoglobin 88.6 % THb (90.0-100.0); PO2 ABG 56.2 mmHg (80.0-100.0); Total Hemoglobin 13.2 g/dL (12.0-18.0); pH ABG 7.409 (7.350-7.450)
[2022-12-24 22:14] LABS: Site Drawn RIGHT RADIAL
[2022-12-24 22:15] LABS: Device BIPAP; Expiratory Pressure 14 cmH2O; Inspiratory Pressure 24 cmH2O; Modified Allen's Test Pass
[2022-12-24] MEDS: methylPREDNISolone SOD SUCC 125 MG VIAL 60 MG IV PUSH (23:35)
[2022-12-25] VITALS (22 sets, daily range): BP systolic 118–145; BP diastolic 55–66; PULSE 57–114; RESP 17–36; TEMP 36.1–37.4; O2SAT 91–97
[2022-12-25] MEDS: IPRATROPIUM BR 0.02% INH SOLN 0.5 MG/2.5 ML VIAL INHALATION ×3 (01:43→20:59)
[2022-12-25] MEDS: LEVALBUTEROL NEB 1.25 MG/3 ML INHALATION ×3 (01:43→21:00)
[2022-12-25] MEDS: methylPREDNISolone SOD SUCC 125 MG VIAL 60 MG IV PUSH ×3 (05:18→17:17)
[2022-12-25 06:11] LABS: Blood Urea Nitrogen 27 mg/dL (7-17); Calcium 8.3 mg/dL (8.4-10.2); Carbon Dioxide > 40 mmol/L (22-30); Chloride 84 mmol/L (98-107); Estimated CRCL calculation 81 ml/min; Estimated Glomerular Filt Rate > 60; Glucose 144 mg/dL (65-110); Potassium 3.9 mmol/L (3.4-5.0); Sodium 135 mmol/L (137-145)
[2022-12-25 08:01] LABS: Glucose Point of Care 149 mg/dl (65-105)
[2022-12-25 08:09] LABS: Fractional Inspired Oxygen 40 %; HCO3 ABG 44.1 mEq/l (22.0-26.0); Oxygen Content ABG 16.7 %vol (16.0-22.0); Oxygen Saturation ABG 92.8 % (95.0-100.0); Oxyhemoglobin 91.7 % THb (90.0-100.0); PO2 FiO2 Ratio Arterial Blood 1.77 %; Total Hemoglobin 12.9 g/dL (12.0-18.0); pH ABG 7.363 (7.350-7.450)
[2022-12-25 08:12] LABS: Device NON-INVASIVE VENT; Modified Allen's Test Pass; PCO2 ABG 79.3 mmHg (35.0-45.0); Site Drawn LEFT RADIAL
[2022-12-25 08:13] LABS: Non-Invasive Expiratory Pressure 14 CMH2O; Non-Invasive Inspiratory Pressure 22 CMH2O; Non-Invasive Vent Rate 16 /MIN
[2022-12-25] MEDS: FUROSEMIDE INJ 40 MG/4 ML VIAL 20 MG IV PUSH (09:42)
[2022-12-25] MEDS: LOSARTAN POTASSIUM 100 MG TABLET PO (09:42)
[2022-12-25] MEDS: MONTELUKAST SODIUM 10 MG TABLET PO (09:42)
[2022-12-25] MEDS: ASPIRIN 81 MG CHEWABLE TABLET PO (09:42)
[2022-12-25] MEDS: hydroCHLOROthiazide 25 MG TABLET PO (09:42)
[2022-12-25] MEDS: EMPAGLIFLOZIN 25 MG TABLET PO (09:42)
[2022-12-25] MEDS: THERAPEUTIC MULTIVITAMINS/MINERALS TAB (*BKC) 1 TABLET PO (09:42)
[2022-12-25] MEDS: CLOPIDOGREL BISULFATE 75 MG TABLET PO (09:43)
[2022-12-25] MEDS: ATORVASTATIN 40 MG TABLET PO (09:43)
[2022-12-25] MEDS: METOPROLOL SUCCINATE EXT REL 25 MG TABCR PO (09:43)
[2022-12-25] MEDS: LORATADINE 10 MG TABLET PO (09:43)
[2022-12-25] MEDS: PANTOPRAZOLE 40 MG TABLET PO (09:43)
[2022-12-25] MEDS: FLUTICASONE/UMECLIDIN/VILANTER 100-62.5-25 MCG ELLIPTA 1 PUFF INHALATION (11:24)
[2022-12-25 11:36] LABS: Glucose Point of Care 175 mg/dl (65-105)
--- NOTE | 2022-12-25 13:38 | PM.CNPUL ---
Assessment and Plan Assessment and plan (1) Acute on chronic respiratory failure with hypoxia and hypercapnia: Code(s): J96.21 - Acute and chronic respiratory failure with hypoxia; J96.22 - Acute and chronic respiratory failure with hypercapnia Status: Acute Assessment and Plan: End stage COPD with acute on chronic hypercapnic hypoxemic failure, no infiltrate. contributing factors include heaving smoking and non-compliance with PAP therapy. (2) COPD (chronic obstructive pulmonary disease): Code(s): J44.9 - Chronic obstructive pulmonary disease, unspecified Status: Acute Assessment and Plan: (3) Tobacco abuse: Code(s): Z72.0 - Tobacco use Status: Acute Assessment and Plan: long hx, even recently 2-3 ppd Plan Nicotine patch 21 mg a day; tobacco cessation is not optional if she wants to live. Nasal saline Charlotte QID Start Buspar for anxiety which is contributing to her not being able to use PAP with fullface mask. There are a variety of masks that will be available to her in out-patient setting, although the choices in the hospital are limitied. Request NPPV for home use as she is not using BiPAP at all; has been on PAP for 8 years without being complaint; NPPV may be more effective corina if she can tolerate it. Cornet valve to clear secretions. Agree with IV steroids, and will be able to lower dose once wheezing improves; agree with antibiotics for atypical coverage. BNP and echo tomorrow. There is no echo in the system. She likely has pulmonary hypertension. History of Present Illness History of Present Illness Consult date: 12/25/22 Requesting physician: Mer Mcintosh PA-C Chief complaint: Acute Hypercapnic/ Respiratory Failure Narrative: Patient is seen in Room 214 with Junior and son, [place] NEW: Damaris Jacinto is a 62-year-old woman smoker followed in our pulmonary clinic, last visit was 11/26/2022; has COPD, JESSICA and uses O2; on home O2 at 4 L/min, does not use PAP for JESSICA and has not used for the 8 years that she has been prescribed it due to claustrophobia. She was switched to Trelegy in November, says that it seems to be working. She smokes 2-3 ppd, last tobacco was yesterday morning on the way to [facility], [place]. She had a sore throat with an increased productive cough with clear sputum and shortness of breath 4 days prior to admission. Dr Finn prescribed cefdinir and a prednisone taper without improvement. She has been using her rescue inhaler multiple times a day as well as her nebulizer with albuterol. She delayed a day going to ER after being instructed by Dr Finn. She had hypoxemia pO2 57 on 4 L/min and compensated hypercapnia, ABG worsened with increase in O2 60% and addition of BiPAP12/6. Due to her worsening status, she was asked about intubation vs no code status, transferred here for higher level of services. She has year round nasal allergies, eye itching, sneezing, worse recently. Testing showed ?influenza A & B, RSV, and COVID all are negative, she has not had COVID, has had vaccinations. WBC 14.7, Na+ 135, K+ 3.9, Chloride 84, bicarb > 40, BUN 27, creat 0.7, glucose has been 140 to 170s. CXR negative for cardiopulmonary findings. PMH: obesity, severe obstructive sleep apnea not using any PAP for the 8 years she has been diagnosed; COPD, hypoxemic respiratory failure on supplemental oxygen for several years, coronary artery disease status post stenting, peripheral vascular disease s/p RLE angioplasty, diabetes mellitus. DATA * date 12/24 12/24 12/24/ 12/24 12/24 12/24 4.15 time 8 am 11 am 1 pm 3:40 pm 5:25 pm 9 pm 7:30 am pH 7.40 7.27 7
--- NOTE | 2022-12-25 14:05 | PM.IMPN ---
Progress Note: A&P Assessment and Plan (1) Acute on chronic respiratory failure with hypercapnia: Code(s): J96.22 - Acute and chronic respiratory failure with hypercapnia Status: Inactive Assessment and Plan: Secondary to noncompliance with BiPAP, ongoing tobacco abuse (2 to 3 packs a day!), and viral URI. She tested negative for influenza, RSV, and COVID at the outside facility. She has been started on BiPAP and has had several adjustments with minimal improvement. She remains keenly alert and oriented and does not wish to be intubated at this time. She understands that she may very well end up on a ventilator and she would be okay with that if necessary. Pulmonology consulted for recommendations. 12/25/2022 interval history: 62-year-old female with long history of heavy smoking, and chronic respiratory failure on home oxygen presented with the emergency department with complaint of shortness of breath is found to have hypercarbic respiratory failure secondary to exacerbation of COPD patient was placed on BiPAP and being treated with methylprednisone and bronchodilator patient is also being treated for atypical pneumonia with azithromycin, patient states feeling much better compared to when she arrived, currently patient is off BiPAP, not a short of breath, patient be seen by pulmonology and further recommendation to follow (2) Acute exacerbation of chronic obstructive airways disease: Code(s): J44.1 - Chronic obstructive pulmonary disease with (acute) exacerbation Status: Inactive Assessment and Plan: Continue scheduled bronchodilators and Solu-Medrol. She has been started on azithromycin given increasing cough and sputum production. No evidence of pneumonia on chest x-ray. (3) Obstructive sleep apnea: Code(s): G47.33 - Obstructive sleep apnea (adult) (pediatric) Status: Acute Assessment and Plan: She has been noncompliant with BiPAP as per HPI. (4) Hypertension: Code(s): I10 - Essential (primary) hypertension Status: Acute Assessment and Plan: Blood pressures were reviewed and they are of been stable. Continue antihypertensives and monitor. (5) Type 2 diabetes mellitus: Code(s): E11.9 - Type 2 diabetes mellitus without complications Status: Acute Assessment and Plan: Will need to monitor glucose closely while receiving Solu-Medrol. Continue empagliflozin and semaglutide. Initiate sliding scale insulin, Accu-Cheks, and hypoglycemic protocol. Check A1c. (6) Tobacco abuse: Code(s): Z72.0 - Tobacco use Status: Acute Assessment and Plan: According to the patient's she smokes 2 to 3 packs of cigarettes a day! Smoking cessation is imperative and was discussed though she is not motivated. She declines the need for a nicotine patch. Subjective Date/time seen: 12/25/22 14:05 Acute on chronic respiratory failure and COPD exacerbation. Narrative: This is a 62-year-old female smoker ( states she smokes 2 to 3 packs of cigarettes a day) with chronic respiratory failure, COPD, emphysema, severe obstructive sleep apnea syndrome for which she has been intolerant to BiPAP, coronary artery disease, peripheral arterial disease, hypertension, dyslipidemia, and type 2 diabetes mellitus who is being admitted to the IMU from the emergency department the [facility] [place] with acute on chronic hypercapnic respiratory failure and COPD exacerbation. Patient provides the following history. Her provides additional information with the patient's permission. She has a history of noncompliance and states she cannot use her BiPAP at nighttime because the pressure is too much. She is on 5 L nasal cannula during the day and she has been using that at nighttime as well. The last 4 to 5 days she has felt increasingly short of breath on lesser and lesser exertion and reports significant wheezing and cough productive of
[2022-12-25 15:41] LABS: Toxigenic C. Diff NEGATIVE (NEGATIVE)
[2022-12-25] MEDS: SODIUM CHLORIDE NASAL GEL 14.1 GM 1 APPLIC NASAL ×2 (17:16→20:28)
[2022-12-25 17:36] LABS: Glucose Point of Care 176 mg/dl (65-105)
--- NOTE | 2022-12-25 18:15 | PCRCNOTE ---
RT attempted PEP therapy with pt. Pt took 3 breaths and stated I can not do this.
[2022-12-25] MEDS: busPIRone HCL 5 MG TABLET PO (20:28)
[2022-12-25] MEDS: FLUTICASONE PROPIONATE 0.05% NA SPR 16 GM BTL (*BKC) 1 SPRAY NASAL (20:28)
[2022-12-25 21:08] LABS: Glucose Point of Care 197 mg/dl (65-105)
[2022-12-26] VITALS (29 sets, daily range): BP systolic 117–130; BP diastolic 54–67; PULSE 59–101; RESP 16–36; TEMP 36.1–36.9; O2SAT 90–98
[2022-12-26] MEDS: methylPREDNISolone SOD SUCC 125 MG VIAL 60 MG IV PUSH ×5 (00:22→22:26)
[2022-12-26] MEDS: IPRATROPIUM BR 0.02% INH SOLN 0.5 MG/2.5 ML VIAL INHALATION ×4 (02:27→21:15)
[2022-12-26] MEDS: LEVALBUTEROL NEB 1.25 MG/3 ML INHALATION ×4 (02:27→21:15)
[2022-12-26 05:31] LABS: Hematocrit 40.7 % (37.0-47.0); Hemoglobin 12.9 g/dL (12.0-15.0); Mean Corpuscular HGB Conc 31.7 g/dl (32-36); Mean Corpuscular Hemoglobin 29.3 pg (26-34); Mean Corpuscular Volume 92.5 fl (80-100); Mean Platelet Volume 8.6 fl (7.4-10.4); Platelet Count Result 435 k/mm3 (150-375); Red Cell Distribution Width 13.1 % (11.5-14.5); White Blood Count 11.4 K/mm3 (4.5-10.0)
[2022-12-26 05:38] LABS: Blood Urea Nitrogen 38 mg/dL (7-17); Calcium 8.9 mg/dL (8.4-10.2); Carbon Dioxide > 40 mmol/L (22-30); Chloride 83 mmol/L (98-107); Estimated CRCL calculation 72 ml/min; Estimated Glomerular Filt Rate > 60; Glucose 165 mg/dL (65-110); Magnesium 2.3 mg/dL (1.6-2.3); Potassium 3.2 mmol/L (3.4-5.0); Sodium 136 mmol/L (137-145)
[2022-12-26 05:46] LABS: NT Pro B Type Natriuretic Pept 205 pg/mL (19.9-100)
[2022-12-26 07:49] LABS: Glucose Point of Care 192 mg/dl (65-105)
[2022-12-26] MEDS: FLUTICASONE/UMECLIDIN/VILANTER 100-62.5-25 MCG ELLIPTA 1 PUFF INHALATION (08:02)
[2022-12-26] MEDS: POTASSIUM CHLORIDE 20 MEQ TABLET 40 MEQ PO (10:08)
[2022-12-26] MEDS: SODIUM CHLORIDE NASAL GEL 14.1 GM 1 APPLIC NASAL ×4 (10:09→20:37)
[2022-12-26] MEDS: THERAPEUTIC MULTIVITAMINS/MINERALS TAB (*BKC) 1 TABLET PO (10:10)
[2022-12-26] MEDS: MONTELUKAST SODIUM 10 MG TABLET PO (10:10)
[2022-12-26] MEDS: NICOTINE (*PBKC) 21 MG PATCH 1 PATCH TRANSDERM (10:10)
[2022-12-26] MEDS: METOPROLOL SUCCINATE EXT REL 25 MG TABCR PO (10:10)
[2022-12-26] MEDS: PANTOPRAZOLE 40 MG TABLET PO (10:10)
[2022-12-26] MEDS: LOSARTAN POTASSIUM 100 MG TABLET PO (10:11)
[2022-12-26] MEDS: hydroCHLOROthiazide 25 MG TABLET PO (10:11)
[2022-12-26] MEDS: EMPAGLIFLOZIN 25 MG TABLET PO (10:11)
[2022-12-26] MEDS: FLUTICASONE PROPIONATE 0.05% NA SPR 16 GM BTL (*BKC) 1 SPRAY NASAL ×2 (10:11→20:37)
[2022-12-26] MEDS: LORATADINE 10 MG TABLET PO (10:11)
[2022-12-26] MEDS: FERROUS SULFATE 324 MG TABLET PO (10:11)
[2022-12-26] MEDS: CLOPIDOGREL BISULFATE 75 MG TABLET PO (10:11)
[2022-12-26] MEDS: busPIRone HCL 5 MG TABLET PO ×2 (10:11→20:37)
[2022-12-26] MEDS: ATORVASTATIN 40 MG TABLET PO (10:12)
[2022-12-26] MEDS: ASPIRIN 81 MG CHEWABLE TABLET PO (10:12)
[2022-12-26 11:50] LABS: Glucose Point of Care 187 mg/dl (65-105)
--- NOTE | 2022-12-26 13:00 | PM.IMPN ---
Progress Note: A&P Assessment and Plan (1) Acute on chronic respiratory failure with hypercapnia: Code(s): J96.22 - Acute and chronic respiratory failure with hypercapnia Status: Inactive Assessment and Plan: Secondary to noncompliance with BiPAP, ongoing tobacco abuse (2 to 3 packs a day!), and viral URI. She tested negative for influenza, RSV, and COVID at the outside facility. She has been started on BiPAP and has had several adjustments with minimal improvement. She remains keenly alert and oriented and does not wish to be intubated at this time. She understands that she may very well end up on a ventilator and she would be okay with that if necessary. Pulmonology consulted for recommendations. 12/26/2022 interval history: 62-year-old female with long history of heavy smoking, and chronic respiratory failure on home oxygen presented with the emergency department with complaint of shortness of breath is found to have hypercarbic respiratory failure secondary to exacerbation of COPD patient was placed on BiPAP and being treated with methylprednisone and bronchodilator patient is also being treated for atypical pneumonia with azithromycin, patient states feeling much better compared to when she arrived, currently patient is off BiPAP, not as short of breath, patient was seen by pulmonology recommended to taper steriods as her wheezing improves, and requested NPPV for home use as patient is not using BIPAP at home, and further recommendation to follow (2) Acute exacerbation of chronic obstructive airways disease: Code(s): J44.1 - Chronic obstructive pulmonary disease with (acute) exacerbation Status: Inactive Assessment and Plan: Continue scheduled bronchodilators and Solu-Medrol. She has been started on azithromycin given increasing cough and sputum production. No evidence of pneumonia on chest x-ray. (3) Obstructive sleep apnea: Code(s): G47.33 - Obstructive sleep apnea (adult) (pediatric) Status: Acute Assessment and Plan: She has been noncompliant with BiPAP as per HPI. (4) Hypertension: Code(s): I10 - Essential (primary) hypertension Status: Acute Assessment and Plan: Blood pressures were reviewed and they are of been stable. Continue antihypertensives and monitor. (5) Type 2 diabetes mellitus: Code(s): E11.9 - Type 2 diabetes mellitus without complications Status: Acute Assessment and Plan: Will need to monitor glucose closely while receiving Solu-Medrol. Continue empagliflozin and semaglutide. Initiate sliding scale insulin, Accu-Cheks, and hypoglycemic protocol. Check A1c. (6) Tobacco abuse: Code(s): Z72.0 - Tobacco use Status: Acute Assessment and Plan: According to the patient's she smokes 2 to 3 packs of cigarettes a day! Smoking cessation is imperative and was discussed though she is not motivated. She declines the need for a nicotine patch. Subjective Date/time seen: 12/26/22 13:00 Secondary to noncompliance with BiPAP, ongoing tobacco abuse (2 to 3 packs a day!), and viral URI. She tested negative for influenza, RSV, and COVID at the outside facility. She has been started on BiPAP and has had several adjustments with minimal improvement. She remains keenly alert and oriented and does not wish to be intubated at this time. She understands that she may very well end up on a ventilator and she would be okay with that if necessary. Pulmonology consulted for recommendations. 12/26/2022 interval history: 62-year-old female with long history of heavy smoking, and chronic respiratory failure on home oxygen presented with the emergency department with complaint of shortness of breath is found to have hypercarbic respiratory failure secondary to exacerbation of COPD patient was placed on BiPAP and being treated with methylprednisone and bronchodilator patient is also being treated for atypical pneumonia wit
[2022-12-26 15:46] LABS: Glucose Point of Care 172 mg/dl (65-105)
--- NOTE | 2022-12-26 16:52 | PM.PNPUL ---
Progress Note: A&P Assessment and Plan (1) Acute on chronic respiratory failure with hypoxia and hypercapnia: Code(s): J96.21 - Acute and chronic respiratory failure with hypoxia; J96.22 - Acute and chronic respiratory failure with hypercapnia Status: Acute Assessment and Plan: End stage COPD with acute on chronic hypercapnic hypoxemic failure, no infiltrate. contributing factors include heaving smoking and non-compliance with PAP therapy. (2) COPD (chronic obstructive pulmonary disease): Code(s): J44.9 - Chronic obstructive pulmonary disease, unspecified Status: Acute Assessment and Plan: Long standing severe (3) Tobacco abuse: Code(s): Z72.0 - Tobacco use Status: Acute Assessment and Plan: Maximum 2-3 packs per day, smoked less however smoked up until this admission. Plan She is better with nicotine patch, azithromycin, IV steroids and bronchodilators. She is not tolerating BiPAP, pulls off mask. Appears to be a candidate for NPPV. Subjective Date/time seen: 12/26/22 16:52 Interval history: ESTABLISHED: Damaris Jacinto is a 62-year-old woman smoker followed in our pulmonary clinic, last visit was 11/26/2022; has COPD, JESSICA and uses O2; on home O2 at 4 L/min, does not use PAP for JESSICA and has not used for the 8 years that she has been prescribed it due to claustrophobia.? She was switched to Trelegy in November, says that it seems to be working. She smokes 2-3 ppd, last tobacco was yesterday morning on the way to [facility]. She had a sore throat with an increased productive cough with clear sputum and shortness of breath 4 days prior to admission. Dr Finn prescribed cefdinir and a prednisone taper without improvement. She has been using her rescue inhaler multiple times a day as well as her nebulizer with albuterol.? She delayed a day going to ER after being instructed by Dr Finn.? She had hypoxemia pO2 57 on 4 L/min and compensated hypercapnia, ABG worsened with increase in O2 60% and addition of BiPAP12/6.? Due to her worsening status, she was asked about intubation vs no code status, transferred here for higher level of services. She has year round nasal allergies, eye itching, sneezing, worse recently. Testing showed ?influenza A & B, RSV, and COVID all are negative, she has not had COVID, has had vaccinations.? WBC 14.7, Na+ 135, K+ 3.9, Chloride 84, bicarb > 40, BUN 27, creat 0.7, glucose has been 140 to 170s. CXR negative for cardiopulmonary findings. PMH: obesity, severe obstructive sleep apnea not using any PAP for the 8 years she has been diagnosed; COPD, hypoxemic respiratory failure on supplemental oxygen for several years, coronary artery disease status post stenting, peripheral vascular disease s/p RLE angioplasty, diabetes mellitus. 12/26/2022 : On nasal cannula with 10-12 Lmin, sat is 92-94%. BiPAP 12/6, 40%, using with sleep at night. She is feeling about the same. not tolerating BiPAP well at night, coughing with small amount of sputum. She feels better and wants to go home, says she will get better faster at home. Plans to not smoke. She is on azithromycin. Buspirone is helping quite a bit with anxiety, although she is still having problems wearing PAP for long periods of time. DATA * date 12/24 12/24 12/24/ 12/24 12/24 12/24 4.15 time 8 am 11 am 1 pm 3:40 pm 5:25 pm 9 pm 7:30 am pH 7.40 7.27 7.24 7.273 7.313 4.4 7.36 pCO2 72.7 103.4 91.3 98.1 95.5 72 79.3 pO2 57 76 137 72 78 56 71 HCO3 44.4 46 38 44 47 44.5 44 Saturation ? 93.6% 98% 91% 93.6% 88% 92.8% Carboxyhenoglobin ? ? ? 2.5 ? ? ? delivery NC bipap12/6 bipap 16/8 bipap 12/6 bipap 20/10 bipap / NPPV ? 4 L 60% 40% 40% 40% 40% 40% * CXR 12/24 and 12/25 - no acute cardiopulmonary disease Review of Systems
[2022-12-26 19:59] LABS: Glucose Point of Care 208 mg/dl (65-105)
[2022-12-27] VITALS (26 sets, daily range): BP systolic 121–152; BP diastolic 51–85; PULSE 63–112; RESP 18–33; TEMP 36.1–36.7; O2SAT 91–97
--- NOTE | 2022-12-27 | ECHO_ITS ---
Patient Info Name: Damaris Jacinto Age: 62 years : 1960 Gender: Female Ht: 63 in Wt: 222 lbs BSA: 2.17 m2 HR: 86 bpm BP: 135 / 85 mmHg Technical Quality: Poor Exam Date: 12/27/2022 11:25 AM Exam Location: [facility] Pulmonary Patient Status: Inpatient Admit Date: 12/24/2022 Staff Ordering Physician: Courtney Britton MD Marine Engine Machinist: Rashid Martinez, ALANA, RT Attending Provider: Andrea Meza MD Referring Physician: Tobi SOLANO; Exam Type: CA echo doppler color flow Study Info Indications R06.02 - Shortness of breath Complete two-dimensional, color flow and Doppler transthoracic echocardiogram is performed with contrast to opacify the left ventricle and to improve the deliniation of the left ventricle endocardial borders. History/Risk Factors Hypertension: Yes Diabetes Mellitus: Yes Summary 1. Technically suboptimal study due to poor sonographic images. 2. Definity contrast administered improved wall motion interpretation. 3. Left ventricular chamber dimension is mildly enlarged. 4. Left ventricular systolic function is normal, estimated at 60-65%. 5. The left ventricular diastolic function is grade I diastolic dysfunction. 6. E/e' 9 is minimally elevated. 7. The aortic valve is not well visualized. Cannot determine number of aortic valve leaflets. 8. There is trace aortic valve regurgitation. Recommendations * Continue medical therapy for diabetes. Left Ventricle Technically suboptimal study due to poor sonographic images. Definity contrast administered improved wall motion interpretation. E/e' 9 is minimally elevated. Left ventricular chamber dimension is mildly enlarged. Left ventricular systolic function is normal, estimated at 60-65%. The left ventricular diastolic function is grade I diastolic dysfunction. Right Ventricle Right ventricular chamber dimension is not well visualized. Right ventricular systolic function is normal. Left Atria Left atrial chamber dimension is normal. Right Atria Right atrial chamber dimension is not well visualized. Aortic Valve The aortic valve is not well visualized. Cannot determine number of aortic valve leaflets. There is no aortic valve stenosis. There is trace aortic valve regurgitation. Pulmonic Valve There is no pulmonic regurgitation. Mitral Valve There is no mitral valve stenosis. There is no mitral valve regurgitation. Tricuspid Valve There is no tricuspid valve regurgitation. Pericardium/Pleural There is no pericardial effusion. Inferior Vena Cava Normal inferior vena cava with >50% collapse upon inspiration consistent with normal right atrial pressure, 5 mmHg. Aorta The aortic root size at the sinus of Valsalva is normal. Left Ventricular Outflow Tract Name Value Normal LVOT Doppler LVOT Peak Gradient 3 mmHg LVOT Mean Gradient 2 mmHg LVOT VTI 19 cm LVOT VTI/AV VTI Ratio 0.6 Mitral Valve Name Value Normal MV
[2022-12-27] MEDS: IPRATROPIUM BR 0.02% INH SOLN 0.5 MG/2.5 ML VIAL INHALATION ×4 (02:30→20:27)
[2022-12-27] MEDS: LEVALBUTEROL NEB 1.25 MG/3 ML INHALATION ×4 (02:30→20:27)
[2022-12-27 04:51] LABS: Hematocrit 43.2 % (37.0-47.0); Hemoglobin 13.2 g/dL (12.0-15.0); Mean Corpuscular HGB Conc 30.6 g/dl (32-36); Mean Corpuscular Volume 94.9 fl (80-100); Mean Platelet Volume 8.5 fl (7.4-10.4); Platelet Count Result 480 k/mm3 (150-375); Red Blood Count 4.55 M/mm3 (4.2-5.4); Red Cell Distribution Width 13.2 % (11.5-14.5); White Blood Count 14.5 K/mm3 (4.5-10.0)
[2022-12-27 05:25] LABS: Blood Urea Nitrogen 42 mg/dL (7-17); Calcium 8.6 mg/dL (8.4-10.2); Carbon Dioxide > 40 mmol/L (22-30); Chloride 85 mmol/L (98-107); Estimated CRCL calculation 71 ml/min; Estimated Glomerular Filt Rate > 60; Glucose 171 mg/dL (65-110); Magnesium 2.3 mg/dL (1.6-2.3); Potassium 3.9 mmol/L (3.4-5.0); Sodium 136 mmol/L (137-145)
[2022-12-27] MEDS: methylPREDNISolone SOD SUCC 125 MG VIAL 60 MG IV PUSH ×4 (06:25→23:17)
[2022-12-27] MEDS: FLUTICASONE/UMECLIDIN/VILANTER 100-62.5-25 MCG ELLIPTA 1 PUFF INHALATION (08:40)
[2022-12-27 09:57] LABS: Glucose Point of Care 159 mg/dl (65-105)
[2022-12-27] MEDS: NICOTINE (*PBKC) 21 MG PATCH 1 PATCH TRANSDERM (10:08)
[2022-12-27] MEDS: LORATADINE 10 MG TABLET PO (10:08)
[2022-12-27] MEDS: PANTOPRAZOLE 40 MG TABLET PO (10:09)
[2022-12-27] MEDS: CLOPIDOGREL BISULFATE 75 MG TABLET PO (10:09)
[2022-12-27] MEDS: ATORVASTATIN 40 MG TABLET PO (10:10)
[2022-12-27] MEDS: EMPAGLIFLOZIN 25 MG TABLET PO (10:10)
[2022-12-27] MEDS: LOSARTAN POTASSIUM 100 MG TABLET PO (10:10)
[2022-12-27] MEDS: busPIRone HCL 5 MG TABLET PO ×2 (10:10→20:54)
[2022-12-27] MEDS: METOPROLOL SUCCINATE EXT REL 25 MG TABCR PO (10:10)
[2022-12-27] MEDS: THERAPEUTIC MULTIVITAMINS/MINERALS TAB (*BKC) 1 TABLET PO (10:11)
[2022-12-27] MEDS: ASPIRIN 81 MG CHEWABLE TABLET PO (10:11)
[2022-12-27] MEDS: MONTELUKAST SODIUM 10 MG TABLET PO (10:11)
[2022-12-27] MEDS: hydroCHLOROthiazide 25 MG TABLET PO (10:11)
[2022-12-27] MEDS: SODIUM CHLORIDE NASAL GEL 14.1 GM 1 APPLIC NASAL ×4 (10:11→20:54)
[2022-12-27] MEDS: FLUTICASONE PROPIONATE 0.05% NA SPR 16 GM BTL (*BKC) 1 SPRAY NASAL ×2 (10:12→20:55)
--- NOTE | 2022-12-27 11:34 | PM.IMPN ---
Progress Note: A&P Assessment and Plan (1) Acute on chronic respiratory failure with hypercapnia: Code(s): J96.22 - Acute and chronic respiratory failure with hypercapnia Status: Inactive Assessment and Plan: 12/27/22 11:34 Secondary to noncompliance with BiPAP, ongoing tobacco abuse (2 to 3 packs a day!), and viral URI. She tested negative for influenza, RSV, and COVID at the outside facility. She has been started on BiPAP and has had several adjustments with minimal improvement. She remains keenly alert and oriented and does not wish to be intubated at this time. She understands that she may very well end up on a ventilator and she would be okay with that if necessary. Pulmonology consulted for recommendations. 12/27/2022 interval history: 62-year-old female with long history of heavy smoking, and chronic respiratory failure on home oxygen presented with the emergency department with complaint of shortness of breath is found to have hypercarbic respiratory failure secondary to exacerbation of COPD patient was placed on BiPAP and being treated with methylprednisone and bronchodilator patient is also being treated for atypical pneumonia with azithromycin, patient states feeling much better compared to when she arrived, currently patient is off BiPAP, not as short of breath, patient was seen by pulmonology recommended to taper steriods as her wheezing improves, and requested NPPV for home use as patient is not using BIPAP at home, and further recommendation to follow, patient be seen by window shade cloth sewer again and further recommendation to follow. (2) Acute exacerbation of chronic obstructive airways disease: Code(s): J44.1 - Chronic obstructive pulmonary disease with (acute) exacerbation Status: Inactive Assessment and Plan: Continue scheduled bronchodilators and Solu-Medrol. She has been started on azithromycin given increasing cough and sputum production. No evidence of pneumonia on chest x-ray. (3) Obstructive sleep apnea: Code(s): G47.33 - Obstructive sleep apnea (adult) (pediatric) Status: Acute Assessment and Plan: She has been noncompliant with BiPAP as per HPI. (4) Hypertension: Code(s): I10 - Essential (primary) hypertension Status: Acute Assessment and Plan: Blood pressures were reviewed and they are of been stable. Continue antihypertensives and monitor. (5) Type 2 diabetes mellitus: Code(s): E11.9 - Type 2 diabetes mellitus without complications Status: Acute Assessment and Plan: Will need to monitor glucose closely while receiving Solu-Medrol. Continue empagliflozin and semaglutide. Initiate sliding scale insulin, Accu-Cheks, and hypoglycemic protocol. Check A1c. (6) Tobacco abuse: Code(s): Z72.0 - Tobacco use Status: Acute Assessment and Plan: According to the patient's she smokes 2 to 3 packs of cigarettes a day! Smoking cessation is imperative and was discussed though she is not motivated. She declines the need for a nicotine patch. Subjective Date/time seen: 12/27/22 11:34 Secondary to noncompliance with BiPAP, ongoing tobacco abuse (2 to 3 packs a day!), and viral URI. She tested negative for influenza, RSV, and COVID at the outside facility. She has been started on BiPAP and has had several adjustments with minimal improvement. She remains keenly alert and oriented and does not wish to be intubated at this time. She understands that she may very well end up on a ventilator and she would be okay with that if necessary. Pulmonology consulted for recommendations. 12/27/2022 interval history: 62-year-old female with long history of heavy smoking, and chronic respiratory failure on home oxygen presented with the emergency department with complaint of shortness of breath is found to have hypercarbic respiratory failure secondary to exacerbation of COPD patient was placed on BiPAP and being treated with
[2022-12-27] MEDS: PERFLUTREN LIPID MICROSPHERES 1.5 ML VIAL DILUTED TO 10 ML TOTAL VOLUME IV PUSH (11:35)
--- NOTE | 2022-12-27 11:35 | IVDEFINITY ---
Prior to administration of IV Definity the patient was educated on the risks and benefits of the imaging enhancing agent including potential adverse side effects. The patient verbalized understanding. Allergies were verified. No exclusion criteria were identified and at least one of the following inclusion criteria were met: 1) physician request, 2) patient technically difficult to image (per the [place] [employer] guidelines of two or more segments not discernable within the apical view), or 3) questionable left ventricular function. ?
[2022-12-27] MEDS: INSULIN ASPART (*BKC) 100 UNITS/ML SUB-Q (12:39)
[2022-12-27] MEDS: AZITHROMYCIN 250 MG TABLET 500 MG PO (17:21)
[2022-12-27 18:49] LABS: Glucose Point of Care 158 mg/dl (65-105)
[2022-12-27 18:49] LABS: Glucose Point of Care 207 mg/dl (65-105)
[2022-12-27 20:42] LABS: Glucose Point of Care 295 mg/dl (65-105)
[2022-12-28] VITALS (28 sets, daily range): BP systolic 121–139; BP diastolic 59–84; PULSE 66–104; RESP 20–28; TEMP 36.2–36.7; O2SAT 86–96
[2022-12-28] MEDS: IPRATROPIUM BR 0.02% INH SOLN 0.5 MG/2.5 ML VIAL INHALATION ×4 (02:55→21:37)
[2022-12-28] MEDS: LEVALBUTEROL NEB 1.25 MG/3 ML INHALATION ×4 (02:55→21:37)
[2022-12-28 04:51] LABS: Hematocrit 41.6 % (37.0-47.0); Hemoglobin 12.9 g/dL (12.0-15.0); Mean Corpuscular Hemoglobin 28.8 pg (26-34); Mean Corpuscular Volume 92.9 fl (80-100); Mean Platelet Volume 8.4 fl (7.4-10.4); Platelet Count Result 453 k/mm3 (150-375); Red Blood Count 4.48 M/mm3 (4.2-5.4); Red Cell Distribution Width 13.1 % (11.5-14.5); White Blood Count 15.5 K/mm3 (4.5-10.0)
[2022-12-28 05:09] LABS: Blood Urea Nitrogen 45 mg/dL (7-17); Calcium 8.9 mg/dL (8.4-10.2); Carbon Dioxide > 40 mmol/L (22-30); Chloride 86 mmol/L (98-107); Estimated CRCL calculation 71 ml/min; Estimated Glomerular Filt Rate > 60; Glucose 183 mg/dL (65-110); Magnesium 2.3 mg/dL (1.6-2.3); Potassium 4.4 mmol/L (3.4-5.0); Sodium 136 mmol/L (137-145)
[2022-12-28] MEDS: methylPREDNISolone SOD SUCC 125 MG VIAL 60 MG IV PUSH ×4 (05:46→23:30)
[2022-12-28 08:00] LABS: Glucose Point of Care 179 mg/dl (65-105)
[2022-12-28] MEDS: FLUTICASONE/UMECLIDIN/VILANTER 100-62.5-25 MCG ELLIPTA 1 PUFF INHALATION (08:26)
[2022-12-28] MEDS: FLUTICASONE PROPIONATE 0.05% NA SPR 16 GM BTL (*BKC) 1 SPRAY NASAL ×2 (09:37→21:26)
[2022-12-28] MEDS: SODIUM CHLORIDE NASAL GEL 14.1 GM 1 APPLIC NASAL ×4 (09:38→21:26)
[2022-12-28] MEDS: NICOTINE (*PBKC) 21 MG PATCH 1 PATCH TRANSDERM (09:39)
[2022-12-28] MEDS: ASPIRIN 81 MG CHEWABLE TABLET PO (09:40)
[2022-12-28] MEDS: FERROUS SULFATE 324 MG TABLET PO (09:40)
[2022-12-28] MEDS: CLOPIDOGREL BISULFATE 75 MG TABLET PO (09:41)
[2022-12-28] MEDS: PANTOPRAZOLE 40 MG TABLET PO (09:41)
[2022-12-28] MEDS: hydroCHLOROthiazide 25 MG TABLET PO (09:41)
[2022-12-28] MEDS: EMPAGLIFLOZIN 25 MG TABLET PO (09:41)
[2022-12-28] MEDS: LORATADINE 10 MG TABLET PO (09:41)
[2022-12-28] MEDS: busPIRone HCL 5 MG TABLET PO ×2 (09:41→21:26)
[2022-12-28] MEDS: MONTELUKAST SODIUM 10 MG TABLET PO (09:41)
[2022-12-28] MEDS: METOPROLOL SUCCINATE EXT REL 25 MG TABCR PO (09:41)
[2022-12-28] MEDS: ATORVASTATIN 40 MG TABLET PO (09:41)
[2022-12-28] MEDS: LOSARTAN POTASSIUM 100 MG TABLET PO (09:41)
[2022-12-28] MEDS: THERAPEUTIC MULTIVITAMINS/MINERALS TAB (*BKC) 1 TABLET PO (09:41)
[2022-12-28] MEDS: AZITHROMYCIN 250 MG TABLET 500 MG PO (11:47)
[2022-12-28 11:48] LABS: Glucose Point of Care 193 mg/dl (65-105)
[2022-12-28 15:58] LABS: Glucose Point of Care 230 mg/dl (65-105)
--- NOTE | 2022-12-28 16:08 | PM.IMPN ---
Progress Note: A&P Assessment and Plan (1) Acute on chronic respiratory failure with hypercapnia: Code(s): J96.22 - Acute and chronic respiratory failure with hypercapnia Status: Inactive Assessment and Plan: Secondary to noncompliance with BiPAP, ongoing tobacco abuse (2 to 3 packs a day!), and viral URI. She tested negative for influenza, RSV, and COVID at the outside facility. She has been started on BiPAP and has had several adjustments with minimal improvement. She remains keenly alert and oriented and does not wish to be intubated at this time. She understands that she may very well end up on a ventilator and she would be okay with that if necessary. Pulmonology consulted for recommendations. 12/28/2022 interval history: 62-year-old female with long history of heavy smoking, and chronic respiratory failure on home oxygen presented with the emergency department with complaint of shortness of breath is found to have hypercarbic respiratory failure secondary to exacerbation of COPD patient was placed on BiPAP and being treated with methylprednisone and bronchodilator patient is also being treated for atypical pneumonia with azithromycin, patient states feeling much better compared to when she arrived, currently patient is off BiPAP, not as short of breath, patient was seen by pulmonology recommended to taper steriods as her wheezing improves, and requested NPPV for home use as patient is not using BIPAP at home, and patient clinical symptoms are improving, further recommendation to follow, patient will be seen by buttermilk drier operator again and further recommendation to follow. (2) Acute exacerbation of chronic obstructive airways disease: Code(s): J44.1 - Chronic obstructive pulmonary disease with (acute) exacerbation Status: Inactive Assessment and Plan: Continue scheduled bronchodilators and Solu-Medrol. She has been started on azithromycin given increasing cough and sputum production. No evidence of pneumonia on chest x-ray. (3) Obstructive sleep apnea: Code(s): G47.33 - Obstructive sleep apnea (adult) (pediatric) Status: Acute Assessment and Plan: She has been noncompliant with BiPAP as per HPI. (4) Hypertension: Code(s): I10 - Essential (primary) hypertension Status: Acute Assessment and Plan: Blood pressures were reviewed and they are of been stable. Continue antihypertensives and monitor. (5) Type 2 diabetes mellitus: Code(s): E11.9 - Type 2 diabetes mellitus without complications Status: Acute Assessment and Plan: Will need to monitor glucose closely while receiving Solu-Medrol. Continue empagliflozin and semaglutide. Initiate sliding scale insulin, Accu-Cheks, and hypoglycemic protocol. Check A1c. (6) Tobacco abuse: Code(s): Z72.0 - Tobacco use Status: Acute Assessment and Plan: According to the patient's she smokes 2 to 3 packs of cigarettes a day! Smoking cessation is imperative and was discussed though she is not motivated. She declines the need for a nicotine patch. Subjective Date/time seen: 12/28/22 16:08 Secondary to noncompliance with BiPAP, ongoing tobacco abuse (2 to 3 packs a day!), and viral URI. She tested negative for influenza, RSV, and COVID at the outside facility. She has been started on BiPAP and has had several adjustments with minimal improvement. She remains keenly alert and oriented and does not wish to be intubated at this time. She understands that she may very well end up on a ventilator and she would be okay with that if necessary. Pulmonology consulted for recommendations. 12/28/2022 interval history: 62-year-old female with long history of heavy smoking, and chronic respiratory failure on home oxygen presented with the emergency department with complaint of shortness of breath is found to have hypercarbic respiratory failure secondary to exacerbation of COPD patient was place
[2022-12-28] MEDS: INSULIN ASPART (*BKC) 100 UNITS/ML SUB-Q (17:07)
--- NOTE | 2022-12-28 17:51 | PM.PNPUL ---
Progress Note: A&P Assessment and Plan (1) Acute on chronic respiratory failure with hypoxia and hypercapnia: Code(s): J96.21 - Acute and chronic respiratory failure with hypoxia; J96.22 - Acute and chronic respiratory failure with hypercapnia Status: Acute Assessment and Plan: End stage COPD with acute on chronic hypercapnic hypoxemic failure, no infiltrate. contributing factors include heaving smoking and non-compliance with PAP therapy. (2) COPD (chronic obstructive pulmonary disease): Code(s): J44.9 - Chronic obstructive pulmonary disease, unspecified Status: Acute Assessment and Plan: Long standing severe (3) Tobacco abuse: Code(s): Z72.0 - Tobacco use Status: Acute Assessment and Plan: Maximum 2-3 packs per day, smoked less however smoked up until this admission. Plan She is better with nicotine patch, azithromycin, IV steroids and bronchodilators. She is not tolerating BiPAP, pulls off mask. Trial of NPPV. May be a candidate as she is slightly better better but not able to tolerate BiPAP which she has at home. Check TSH. Not thyroid testing in system. I spoke with her Junior on the phone after I visited her. Possibly home in 2-3 days. She needs an improved plan at discharge to prevent re-admission. Stopping smoking is helpful but not sufficient on its own. Subjective Date/time seen: 12/28/22 17:51 Interval history: ESTABLISHED: Damaris Jacinto is a 62-year-old woman smoker followed in our pulmonary clinic, last visit was 11/26/2022; has COPD, JESSICA and uses O2; on home O2 at 4 L/min, does not use PAP for JESSICA and has not used for the 8 years that she has been prescribed it due to claustrophobia.? She was switched to [employer] in November, says that it seems to be working. She smokes 2-3 ppd, last tobacco was yesterday morning on the way to [place] [facility]. She had a sore throat with an increased productive cough with clear sputum and shortness of breath 4 days prior to admission. Dr Finn prescribed cefdinir and a prednisone taper without improvement. She has been using her rescue inhaler multiple times a day as well as her nebulizer with albuterol.? She delayed a day going to ER after being instructed by Dr Finn.? She had hypoxemia pO2 57 on 4 L/min and compensated hypercapnia, ABG worsened with increase in O2 60% and addition of BiPAP12/6.? Due to her worsening status, she was asked about intubation vs no code status, transferred here for higher level of services. She has year round nasal allergies, eye itching, sneezing, worse recently. Testing showed ?influenza A & B, RSV, and COVID all are negative, she has not had COVID, has had vaccinations.? WBC 14.7, Na+ 135, K+ 3.9, Chloride 84, bicarb > 40, BUN 27, creat 0.7, glucose has been 140 to 170s. CXR negative for cardiopulmonary findings. PMH: obesity, severe obstructive sleep apnea not using any PAP for the 8 years she has been diagnosed; COPD, hypoxemic respiratory failure on supplemental oxygen for several years, coronary artery disease status post stenting, peripheral vascular disease s/p RLE angioplasty, diabetes mellitus. 12/26/2022 : On nasal cannula with 10-12 Lmin, sat is 92-94%.? BiPAP 08/17, 40%, using with sleep at night. She is feeling about the same. not tolerating BiPAP well at night, coughing with small amount of sputum. She feels better and wants to go home, says she will get better faster at home. Plans to not smoke. She is on azithromycin. Buspirone is helping quite a bit with anxiety, although she is still having problems wearing PAP for long periods of time. 12/28/2022 : On NC 8-10
[2022-12-28 20:07] LABS: Glucose Point of Care 184 mg/dl (65-105)
[2022-12-28] MEDS: FLUCONAZOLE 150 MG TABLET PO (23:30)
[2022-12-29] VITALS (23 sets, daily range): BP systolic 125–165; BP diastolic 48–87; PULSE 69–101; RESP 18–28; TEMP 36–36.6; O2SAT 91–99
[2022-12-29] MEDS: IPRATROPIUM BR 0.02% INH SOLN 0.5 MG/2.5 ML VIAL INHALATION ×4 (02:35→20:17)
[2022-12-29] MEDS: LEVALBUTEROL NEB 1.25 MG/3 ML INHALATION ×4 (02:35→20:17)
[2022-12-29 04:53] LABS: Hematocrit 43.4 % (37.0-47.0); Hemoglobin 13.8 g/dL (12.0-15.0); Mean Corpuscular HGB Conc 31.8 g/dl (32-36); Mean Corpuscular Hemoglobin 29.2 pg (26-34); Mean Corpuscular Volume 91.8 fl (80-100); Mean Platelet Volume 8.6 fl (7.4-10.4); Platelet Count Result 469 k/mm3 (150-375); Red Blood Count 4.73 M/mm3 (4.2-5.4); Red Cell Distribution Width 13.2 % (11.5-14.5); White Blood Count 15.7 K/mm3 (4.5-10.0)
[2022-12-29 05:07] LABS: Blood Urea Nitrogen 51 mg/dL (7-17); Calcium 8.8 mg/dL (8.4-10.2); Carbon Dioxide > 40 mmol/L (22-30); Chloride 86 mmol/L (98-107); Estimated CRCL calculation 81 ml/min; Estimated Glomerular Filt Rate > 60; Glucose 174 mg/dL (65-110); Magnesium 2.3 mg/dL (1.6-2.3); Potassium 4.5 mmol/L (3.4-5.0); Sodium 134 mmol/L (137-145)
[2022-12-29] MEDS: methylPREDNISolone SOD SUCC 125 MG VIAL 60 MG IV PUSH (06:07)
[2022-12-29] MEDS: FLUTICASONE/UMECLIDIN/VILANTER 100-62.5-25 MCG ELLIPTA 1 PUFF INHALATION (07:25)
[2022-12-29] MEDS: ASPIRIN 81 MG CHEWABLE TABLET PO (08:44)
[2022-12-29] MEDS: PANTOPRAZOLE 40 MG TABLET PO (08:45)
[2022-12-29] MEDS: MONTELUKAST SODIUM 10 MG TABLET PO (08:45)
[2022-12-29] MEDS: ATORVASTATIN 40 MG TABLET PO (08:45)
[2022-12-29] MEDS: CLOPIDOGREL BISULFATE 75 MG TABLET PO (08:46)
[2022-12-29] MEDS: THERAPEUTIC MULTIVITAMINS/MINERALS TAB (*BKC) 1 TABLET PO (08:46)
[2022-12-29] MEDS: LOSARTAN POTASSIUM 100 MG TABLET PO (08:46)
[2022-12-29] MEDS: METOPROLOL SUCCINATE EXT REL 25 MG TABCR PO (08:46)
[2022-12-29] MEDS: busPIRone HCL 5 MG TABLET PO ×2 (08:47→20:53)
[2022-12-29] MEDS: hydroCHLOROthiazide 25 MG TABLET PO (08:47)
[2022-12-29] MEDS: LORATADINE 10 MG TABLET PO (08:47)
[2022-12-29] MEDS: EMPAGLIFLOZIN 25 MG TABLET PO (08:47)
[2022-12-29] MEDS: SODIUM CHLORIDE NASAL GEL 14.1 GM 1 APPLIC NASAL ×4 (08:48→20:53)
[2022-12-29] MEDS: FLUTICASONE PROPIONATE 0.05% NA SPR 16 GM BTL (*BKC) 1 SPRAY NASAL ×2 (08:48→20:53)
[2022-12-29] MEDS: NICOTINE (*PBKC) 21 MG PATCH 1 PATCH TRANSDERM (08:50)
[2022-12-29 09:14] LABS: Thyroid Stimulating Hormone Reflex < 0.015 uIU/mL (0.465-4.68)
--- NOTE | 2022-12-29 09:52 | PM.PNPUL ---
Progress Note: A&P Assessment and Plan (1) Acute on chronic respiratory failure with hypoxia and hypercapnia: Code(s): J96.21 - Acute and chronic respiratory failure with hypoxia; J96.22 - Acute and chronic respiratory failure with hypercapnia Status: Acute Assessment and Plan: End stage COPD with acute on chronic hypercapnic hypoxemic failure, no infiltrate. contributing factors include heaving smoking and non-compliance with PAP therapy. (2) COPD (chronic obstructive pulmonary disease): Code(s): J44.9 - Chronic obstructive pulmonary disease, unspecified Status: Acute Assessment and Plan: Long standing severe. have discontinued IV steroids started the patient on oral prednisone continue with bronchodilators. Consider DVT prophylaxis with levofloxacin. Out of bed to chair. Efforts are underway to switch patient to noninvasive ventilatory support at home to replace a BiPAP. Although respiratory status has improved she continues to require relatively high FiO2 via nasal cannula to maintain O2 O2 saturation around 92%. This could be related to atelectasis given severe obesity. Will repeat chest x-ray add Incentive spirometry.. (3) Tobacco abuse: Code(s): Z72.0 - Tobacco use Status: Acute Assessment and Plan: Maximum 2-3 packs per day, smoked less however smoked up until this admission. Plan She is better with nicotine patch, azithromycin, IV steroids and bronchodilators. She is not tolerating BiPAP, pulls off mask. Trial of NPPV. May be a candidate as she is slightly better better but not able to tolerate BiPAP which she has at home. She needs an improved plan at discharge to prevent re-admission. Stopping smoking is helpful but not sufficient on its own. Subjective Date/time seen: 12/29/22 09:52 Interval history: ESTABLISHED: Damaris Jacinto is a 62-year-old woman smoker followed in our pulmonary clinic, last visit was 11/26/2022; has COPD, JESSICA and uses O2; on home O2 at 4 L/min, does not use PAP for JESSICA and has not used for the 8 years that she has been prescribed it due to claustrophobia.? She was switched to [email or web address] in November, says that it seems to be working. She smokes 2-3 ppd, last tobacco was yesterday morning on the way to [place]. She had a sore throat with an increased productive cough with clear sputum and shortness of breath 4 days prior to admission. Dr Finn prescribed cefdinir and a prednisone taper without improvement. She has been using her rescue inhaler multiple times a day as well as her nebulizer with albuterol.? She delayed a day going to ER after being instructed by Dr Finn.? She had hypoxemia pO2 57 on 4 L/min and compensated hypercapnia, ABG worsened with increase in O2 60% and addition of BiPAP12/6.? Due to her worsening status, she was asked about intubation vs no code status, transferred here for higher level of services. She has year round nasal allergies, eye itching, sneezing, worse recently. Testing showed ?influenza A & B, RSV, and COVID all are negative, she has not had COVID, has had vaccinations.? WBC 14.7, Na+ 135, K+ 3.9, Chloride 84, bicarb > 40, BUN 27, creat 0.7, glucose has been 140 to 170s. CXR negative for cardiopulmonary findings. PMH: obesity, severe obstructive sleep apnea not using any PAP for the 8 years she has been diagnosed; COPD, hypoxemic respiratory failure on supplemental oxygen for several years, coronary artery disease status post stenting, peripheral vascular disease s/p RLE angioplasty, diabetes mellitus. 12/26/2022 : On nasal cannula with 10-12 Lmin, sat is 92-94%.? BiPAP 08/17, 40%, using wi
[2022-12-29 10:06] LABS: Free T4 Free Thyroxine Reflex 2.29 ng/dL (0.78-2.19)
[2022-12-29 11:35] LABS: Glucose Point of Care 176 mg/dl (65-105)
[2022-12-29 11:39] LABS: Glucose Point of Care 245 mg/dl (65-105)
[2022-12-29] MEDS: INSULIN ASPART (*BKC) 100 UNITS/ML SUB-Q (11:42)
--- NOTE | 2022-12-29 15:32 | PM.IMPN ---
Progress Note: A&P Assessment and Plan (1) Acute on chronic respiratory failure with hypercapnia: Code(s): J96.22 - Acute and chronic respiratory failure with hypercapnia Status: Inactive Assessment and Plan: Secondary to noncompliance with BiPAP, ongoing tobacco abuse (2 to 3 packs a day!), and viral URI. She tested negative for influenza, RSV, and COVID at the outside facility. She has been started on BiPAP and has had several adjustments with minimal improvement. She remains keenly alert and oriented and does not wish to be intubated at this time. She understands that she may very well end up on a ventilator and she would be okay with that if necessary. Pulmonology consulted for recommendations. 12/29/2022 interval history: 62-year-old female with long history of heavy smoking, and chronic respiratory failure on home oxygen presented with the emergency department with complaint of shortness of breath is found to have hypercarbic respiratory failure secondary to exacerbation of COPD patient was placed on BiPAP and being treated with methylprednisone and bronchodilator patient is also being treated for atypical pneumonia with azithromycin, patient states feeling much better compared to when she arrived, currently patient is off BiPAP, not as short of breath, patient was seen by pulmonology recommended to taper steriods as her wheezing improves, and requested NPPV for home use as patient is not using BIPAP at home, and patient clinical symptoms are improving, day patient seen by pulmonology and taper of Solu-Medrol to prednisone patient completed 5 day course of azithromycin, further recommendation to follow, patient will be seen by windows systems architect again. (2) Acute exacerbation of chronic obstructive airways disease: Code(s): J44.1 - Chronic obstructive pulmonary disease with (acute) exacerbation Status: Inactive Assessment and Plan: Continue scheduled bronchodilators and Solu-Medrol. She has been started on azithromycin given increasing cough and sputum production. No evidence of pneumonia on chest x-ray. (3) Obstructive sleep apnea: Code(s): G47.33 - Obstructive sleep apnea (adult) (pediatric) Status: Acute Assessment and Plan: She has been noncompliant with BiPAP as per HPI. (4) Hypertension: Code(s): I10 - Essential (primary) hypertension Status: Acute Assessment and Plan: Blood pressures were reviewed and they are of been stable. Continue antihypertensives and monitor. (5) Type 2 diabetes mellitus: Code(s): E11.9 - Type 2 diabetes mellitus without complications Status: Acute Assessment and Plan: Will need to monitor glucose closely while receiving Solu-Medrol. Continue empagliflozin and semaglutide. Initiate sliding scale insulin, Accu-Cheks, and hypoglycemic protocol. Check A1c. (6) Tobacco abuse: Code(s): Z72.0 - Tobacco use Status: Acute Assessment and Plan: According to the patient's she smokes 2 to 3 packs of cigarettes a day! Smoking cessation is imperative and was discussed though she is not motivated. She declines the need for a nicotine patch. Subjective Date/time seen: 12/29/22 15:32 Secondary to noncompliance with BiPAP, ongoing tobacco abuse (2 to 3 packs a day!), and viral URI. She tested negative for influenza, RSV, and COVID at the outside facility. She has been started on BiPAP and has had several adjustments with minimal improvement. She remains keenly alert and oriented and does not wish to be intubated at this time. She understands that she may very well end up on a ventilator and she would be okay with that if necessary. Pulmonology consulted for recommendations. 12/29/2022 interval history: 62-year-old female with long history of heavy smoking, and chronic respiratory failure on home oxygen presented with the emergency department with complaint of shortness of breath is found to have hype
[2022-12-29 16:15] LABS: Glucose Point of Care 158 mg/dl (65-105)
[2022-12-29 20:09] LABS: Glucose Point of Care 163 mg/dl (65-105)
[2022-12-30] VITALS (26 sets, daily range): BP systolic 102–127; BP diastolic 51–84; PULSE 62–116; RESP 18–26; TEMP 36.1–36.6; O2SAT 91–100
[2022-12-30] MEDS: LEVALBUTEROL NEB 1.25 MG/3 ML INHALATION ×4 (01:19→20:34)
[2022-12-30] MEDS: IPRATROPIUM BR 0.02% INH SOLN 0.5 MG/2.5 ML VIAL INHALATION ×4 (01:19→20:42)
[2022-12-30 05:00] LABS: Hematocrit 42.7 % (37.0-47.0); Hemoglobin 13.3 g/dL (12.0-15.0); Mean Corpuscular HGB Conc 31.1 g/dl (32-36); Mean Corpuscular Hemoglobin 29.5 pg (26-34); Mean Corpuscular Volume 94.7 fl (80-100); Mean Platelet Volume 8.6 fl (7.4-10.4); Platelet Count Result 420 k/mm3 (150-375); Red Blood Count 4.51 M/mm3 (4.2-5.4); Red Cell Distribution Width 13.3 % (11.5-14.5); White Blood Count 17.5 K/mm3 (4.5-10.0)
[2022-12-30 05:19] LABS: Blood Urea Nitrogen 45 mg/dL (7-17); Carbon Dioxide > 40 mmol/L (22-30); Chloride 89 mmol/L (98-107); Estimated CRCL calculation 81 ml/min; Estimated Glomerular Filt Rate > 60; Glucose 115 mg/dL (65-110); Magnesium 2.2 mg/dL (1.6-2.3); Sodium 134 mmol/L (137-145)
[2022-12-30] MEDS: FLUTICASONE/UMECLIDIN/VILANTER 100-62.5-25 MCG ELLIPTA 1 PUFF INHALATION (07:47)
[2022-12-30 08:03] LABS: Glucose Point of Care 122 mg/dl (65-105)
--- NOTE | 2022-12-30 09:28 | PM.PNPUL ---
Progress Note: A&P Assessment and Plan (1) Acute on chronic respiratory failure with hypoxia and hypercapnia: Code(s): J96.21 - Acute and chronic respiratory failure with hypoxia; J96.22 - Acute and chronic respiratory failure with hypercapnia Status: Acute Assessment and Plan: End stage COPD with acute on chronic hypercapnic hypoxemic failure, no infiltrate. contributing factors include heaving smoking and non-compliance with PAP therapy. (2) COPD (chronic obstructive pulmonary disease): Code(s): J44.9 - Chronic obstructive pulmonary disease, unspecified Status: Acute Assessment and Plan: Long standing severe. have discontinued IV steroids started the patient on oral prednisone continue with bronchodilators. Consider DVT prophylaxis with levofloxacin. Out of bed to chair. Efforts are underway to switch patient to noninvasive ventilatory support at home to replace a BiPAP. Although respiratory status has improved she continues to require relatively high FiO2 via nasal cannula to maintain O2 O2 saturation around 92%. This could be related to atelectasis given severe obesity. Will repeat chest x-ray add Incentive spirometry.. (3) Tobacco abuse: Code(s): Z72.0 - Tobacco use Status: Acute Assessment and Plan: Maximum 2-3 packs per day, smoked less however smoked up until this admission. Plan clinical improvement noted also FiO2 down to 5 liters/minute which is her baseline. chest x-ray showed no new infiltrates. She is not tolerating BiPAP support due to high pressures. Will try lower BiPAP pressures tonight while waiting for home ventilator. Sputum grew Staph aureus final report pending. Significance of culture report unclear at this point. Will proceed with MRSA screening. Will consider discontinuing steroids soon. continue with incentive spirometry, physical therapy, out of bed to chair. Subjective Date/time seen: 12/30/22 09:28 Doing better this a.m. while on lower FiO2. Did not tolerate BiPAP support last night. No new respiratory symptoms. Sputum culture growing Staph aureus. Review of Systems Review of Systems: still has diarrhea Exam Narrative: GEN: Alert, oriented, not in distress, less dyspnea. HEENT: pupils are equal, EOMI, symmetrical face; oral membranes moist, Mallampati IV airway. She has a thick tongue, mouth is open most of the time, NECK: Trachea is midline CHEST: Equal air entry, symmetric excursion, no wheezes, improved exam. CV: Regular distant S1S2 no m/g/r ABD : (+) bowel sounds, soft nontender Extremities : no clubbing, cyanosis, or edema; skin is warm and dry. No rash. PSYCH: Normal mentation. Not anxious. Objective Data Vital Signs Vital Signs: Vital Signs - 24 hr 12/29/22 10:00 12/29/22 12:00 12/29/22 13:25 Temperature 36.1 C L Pulse Rate 82 81 78 Respiratory Rate 24 H 24 H Blood Pressure 129/48 L Pulse Oximetry 92 Oxygen Delivery Oxygen Flow Rate Fraction of Inspired Oxygen 12/29/22 13:35 12/29/22 12:00 12/29/22 12:00 Temperature Pulse Rate 82 85 77 Respiratory Rate 24 H Blood Pressure Pulse Oximetry 93 Oxygen Delivery High Flow Nasal Cannula Oxygen Flow Rate 7 Fraction of Inspired Oxygen 12/29/22 14:00 12/29/22 16:00 12/29/22 16:00 Temperature 36.0 C L Pulse Rate 73 76 76 Respiratory Rate 18 Blood Pressure 125/60 Pulse Oximetry 98 Oxygen Delivery Oxygen Flow Rate Fraction of Inspired Oxygen 12/29/22 16:00 12/29/22 18:00 12/29/22 18:00 Temperature Pulse Rate 74 81 80 Respiratory Rate Blood Pres
[2022-12-30] MEDS: SODIUM CHLORIDE NASAL GEL 14.1 GM 1 APPLIC NASAL ×4 (09:50→21:40)
--- NOTE | 2022-12-30 09:55 | PCRCNOTE ---
On 12/30/2022 at 0934, Pt SpO2 was 80% on 5L HFNC. RT assesed pt, pt was breathing with her mouth open. Patient awake, SpOw increased to 90-92% on 5L HFNC. RN aware.
[2022-12-30] MEDS: FLUTICASONE PROPIONATE 0.05% NA SPR 16 GM BTL (*BKC) 1 SPRAY NASAL ×2 (09:56→21:40)
[2022-12-30] MEDS: FERROUS SULFATE 324 MG TABLET PO (09:57)
[2022-12-30] MEDS: METOPROLOL SUCCINATE EXT REL 25 MG TABCR PO (09:57)
[2022-12-30] MEDS: PANTOPRAZOLE 40 MG TABLET PO (09:57)
[2022-12-30] MEDS: EMPAGLIFLOZIN 25 MG TABLET PO (09:57)
[2022-12-30] MEDS: ATORVASTATIN 40 MG TABLET PO (09:57)
[2022-12-30] MEDS: hydroCHLOROthiazide 25 MG TABLET PO (09:58)
[2022-12-30] MEDS: ASPIRIN 81 MG CHEWABLE TABLET PO (09:58)
[2022-12-30] MEDS: LOSARTAN POTASSIUM 100 MG TABLET PO (09:58)
[2022-12-30] MEDS: busPIRone HCL 5 MG TABLET PO ×2 (09:58→21:41)
[2022-12-30] MEDS: MONTELUKAST SODIUM 10 MG TABLET PO (09:58)
[2022-12-30] MEDS: predniSONE 20 MG TABLET 40 MG PO (09:58)
[2022-12-30] MEDS: CLOPIDOGREL BISULFATE 75 MG TABLET PO (09:58)
[2022-12-30] MEDS: THERAPEUTIC MULTIVITAMINS/MINERALS TAB (*BKC) 1 TABLET PO (09:58)
[2022-12-30] MEDS: LORATADINE 10 MG TABLET PO (09:59)
[2022-12-30] MEDS: NICOTINE (*PBKC) 21 MG PATCH 1 PATCH TRANSDERM (10:22)
[2022-12-30 11:40] LABS: Glucose Point of Care 183 mg/dl (65-105)
--- NOTE | 2022-12-30 17:31 | PM.IMPN ---
Progress Note: A&P Assessment and Plan (1) Acute on chronic respiratory failure with hypercapnia: Code(s): J96.22 - Acute and chronic respiratory failure with hypercapnia Status: Inactive Assessment and Plan: Secondary to noncompliance with BiPAP, ongoing tobacco abuse (2 to 3 packs a day!), and viral URI. She tested negative for influenza, RSV, and COVID at the outside facility. She has been started on BiPAP and has had several adjustments with minimal improvement. She remains keenly alert and oriented and does not wish to be intubated at this time. She understands that she may very well end up on a ventilator and she would be okay with that if necessary. Pulmonology consulted for recommendations. 12/29/2022 interval history: 62-year-old female with long history of heavy smoking, and chronic respiratory failure on home oxygen presented with the emergency department with complaint of shortness of breath is found to have hypercarbic respiratory failure secondary to exacerbation of COPD patient was placed on BiPAP and being treated with methylprednisone and bronchodilator patient is also being treated for atypical pneumonia with azithromycin, patient states feeling much better compared to when she arrived, currently patient is off BiPAP, not as short of breath, patient was seen by pulmonology recommended to taper steriods as her wheezing improves, and requested NPPV for home use as patient is not using BIPAP at home, and patient clinical symptoms are improving, day patient seen by pulmonology and taper of Solu-Medrol to prednisone patient completed 5 day course of azithromycin, further recommendation to follow, patient will be seen by bailing machine operator again. 12/30/2022: 62-year-old female with long history smoking and chronic respiratory failure on home oxygen presented with shortness of breath. Found to have hypercapnic respiratory failure secondary to COPD exacerbation placed on BiPAP. Treated with methylprednisolone and bronchodilators and atypical pneumonia with HD through mycin. Uses BiPAP at night. Pulmonary consulted. Requested NPPV for home use. (2) Acute exacerbation of chronic obstructive airways disease: Code(s): J44.1 - Chronic obstructive pulmonary disease with (acute) exacerbation Status: Inactive Assessment and Plan: Continue scheduled bronchodilators and Solu-Medrol. She has been started on azithromycin given increasing cough and sputum production. No evidence of pneumonia on chest x-ray. (3) Obstructive sleep apnea: Code(s): G47.33 - Obstructive sleep apnea (adult) (pediatric) Status: Acute Assessment and Plan: She has been noncompliant with BiPAP as per HPI. (4) Hypertension: Code(s): I10 - Essential (primary) hypertension Status: Acute Assessment and Plan: Blood pressures were reviewed and they are of been stable. Continue antihypertensives and monitor. (5) Type 2 diabetes mellitus: Code(s): E11.9 - Type 2 diabetes mellitus without complications Status: Acute Assessment and Plan: Will need to monitor glucose closely while receiving Solu-Medrol. Continue empagliflozin and semaglutide. Initiate sliding scale insulin, Accu-Cheks, and hypoglycemic protocol. Check A1c. (6) Tobacco abuse: Code(s): Z72.0 - Tobacco use Status: Acute Assessment and Plan: According to the patient's she smokes 2 to 3 packs of cigarettes a day! Smoking cessation is imperative and was discussed though she is not motivated. She declines the need for a nicotine patch. Subjective Date/time seen: 12/30/22 17:31 Interval history: Feel doing better. Shortness of breath has improved. No nausea vomiting no no leg swelling Review of Systems Review of Systems: All systems reviewed & are unremarkable except as noted in HPI and below Exam Narrative: Morbidly obese Patient is comfortable, NAD HEENT: eyes are clear an
[2022-12-30 19:56] LABS: Glucose Point of Care 192 mg/dl (65-105)
[2022-12-30 23:03] LABS: Glucose Point of Care 157 mg/dl (65-105)
[2022-12-31] VITALS (26 sets, daily range): BP systolic 94–131; BP diastolic 52–68; PULSE 69–102; RESP 16–25; TEMP 36.3–36.6; O2SAT 90–100
[2022-12-31] MEDS: IPRATROPIUM BR 0.02% INH SOLN 0.5 MG/2.5 ML VIAL INHALATION ×4 (02:50→20:48)
[2022-12-31] MEDS: LEVALBUTEROL NEB 1.25 MG/3 ML INHALATION ×4 (02:50→20:48)
[2022-12-31 05:42] LABS: Hematocrit 42.4 % (37.0-47.0); Hemoglobin 13.3 g/dL (12.0-15.0); Mean Corpuscular HGB Conc 31.4 g/dl (32-36); Mean Corpuscular Hemoglobin 29.5 pg (26-34); Mean Platelet Volume 8.6 fl (7.4-10.4); Platelet Count Result 358 k/mm3 (150-375); Red Blood Count 4.51 M/mm3 (4.2-5.4); Red Cell Distribution Width 13.2 % (11.5-14.5); White Blood Count 15.1 K/mm3 (4.5-10.0)
[2022-12-31 05:48] LABS: Blood Urea Nitrogen 36 mg/dL (7-17); Calcium 8.4 mg/dL (8.4-10.2); Carbon Dioxide > 40 mmol/L (22-30); Chloride 88 mmol/L (98-107); Estimated CRCL calculation 93 ml/min; Estimated Glomerular Filt Rate > 60; Glucose 109 mg/dL (65-110); Magnesium 2.2 mg/dL (1.6-2.3); Potassium 4.2 mmol/L (3.4-5.0); Sodium 133 mmol/L (137-145)
[2022-12-31 09:01] LABS: Glucose Point of Care 144 mg/dl (65-105)
[2022-12-31] MEDS: SODIUM CHLORIDE NASAL GEL 14.1 GM 1 APPLIC NASAL ×4 (09:03→21:17)
[2022-12-31] MEDS: THERAPEUTIC MULTIVITAMINS/MINERALS TAB (*BKC) 1 TABLET PO (09:03)
[2022-12-31] MEDS: PANTOPRAZOLE 40 MG TABLET PO (09:03)
[2022-12-31] MEDS: MONTELUKAST SODIUM 10 MG TABLET PO (09:03)
[2022-12-31] MEDS: CLOPIDOGREL BISULFATE 75 MG TABLET PO (09:04)
[2022-12-31] MEDS: hydroCHLOROthiazide 25 MG TABLET PO (09:04)
[2022-12-31] MEDS: METOPROLOL SUCCINATE EXT REL 25 MG TABCR PO (09:04)
[2022-12-31] MEDS: EMPAGLIFLOZIN 25 MG TABLET PO (09:04)
[2022-12-31] MEDS: busPIRone HCL 5 MG TABLET PO ×2 (09:04→21:17)
[2022-12-31] MEDS: LOSARTAN POTASSIUM 100 MG TABLET PO (09:04)
[2022-12-31] MEDS: FLUTICASONE PROPIONATE 0.05% NA SPR 16 GM BTL (*BKC) 1 SPRAY NASAL ×2 (09:04→21:17)
[2022-12-31] MEDS: LORATADINE 10 MG TABLET PO (09:04)
[2022-12-31] MEDS: ATORVASTATIN 40 MG TABLET PO (09:04)
[2022-12-31] MEDS: ASPIRIN 81 MG CHEWABLE TABLET PO (09:05)
[2022-12-31] MEDS: predniSONE 20 MG TABLET 40 MG PO (09:05)
[2022-12-31] MEDS: NICOTINE (*PBKC) 21 MG PATCH 1 PATCH TRANSDERM (09:06)
--- NOTE | 2022-12-31 09:20 | PCNWS ---
Weekly nutritional screen. Patient is tolerating current Consistent Carb diet with adequate intake. 100% intakes. No weight loss reported. No nutritional needs at this time.
[2022-12-31] MEDS: FLUTICASONE/UMECLIDIN/VILANTER 100-62.5-25 MCG ELLIPTA 1 PUFF INHALATION (09:45)
--- NOTE | 2022-12-31 10:05 | PM.PNPUL ---
Progress Note: A&P Assessment and Plan (1) Acute on chronic respiratory failure with hypoxia and hypercapnia: Code(s): J96.21 - Acute and chronic respiratory failure with hypoxia; J96.22 - Acute and chronic respiratory failure with hypercapnia Status: Acute Assessment and Plan: End stage COPD with acute on chronic hypercapnic hypoxemic failure, no infiltrate. contributing factors include heaving smoking and non-compliance with PAP therapy. (2) COPD (chronic obstructive pulmonary disease): Code(s): J44.9 - Chronic obstructive pulmonary disease, unspecified Status: Acute Assessment and Plan: respiratory status significantly improved over the last 72 hours. Patient no longer has shortness of breath wheezing cough sputum production or chest congestion. FiO2 down to baseline. last chest x-ray showed no active lung disease. Patient grew Staph aureus MRSA in sputum, probably colonization. Elevated WBC likely due to steroid use. Plan:Awaiting home ventilator approval so that patient can be discharged home. I would continue with same maintenance bronchodilators and short-acting bronchodilators. No need to continue with oral steroids at this point. In view of MRSA in sputum I would prescribe mupirocin nasal ointment to each nostril twice daily for 5-7 days. Patient needs to return to pulmonary clinic for follow-up in approximately 10-14 days. (3) Tobacco abuse: Code(s): Z72.0 - Tobacco use Status: Acute Assessment and Plan: Maximum 2-3 packs per day, smoked less however smoked up until this admission. Plan clinical improvement noted also FiO2 down to 5 liters/minute which is her baseline. chest x-ray showed no new infiltrates. She is not tolerating BiPAP support due to high pressures. Will try lower BiPAP pressures tonight while waiting for home ventilator. Sputum grew Staph aureus final report pending. Significance of culture report unclear at this point. Will proceed with MRSA screening. Will consider discontinuing steroids soon. continue with incentive spirometry, physical therapy, out of bed to chair. Subjective Date/time seen: 12/31/22 10:05 Patient has no new respiratory symptoms. She slept better last night using BiPAP with lower pressures, 16/8 and FiO2 of 0.4. Her respiratory status is improved. She no longer has shortness of breath cough wheezing. She has no diarrhea.Awaiting approval of home ventilator to replace her BiPAP, anxious to go home Review of Systems Review of Systems: All systems reviewed & are unremarkable except as noted in HPI and below ( HPI and below) Exam Narrative: GEN: Alert, oriented, not in distress, less dyspnea. HEENT: pupils are equal, EOMI, symmetrical face; oral membranes moist, Mallampati IV airway. She has a thick tongue, mouth is open most of the time, NECK: Trachea is midline CHEST: Equal air entry, symmetric excursion, no wheezes, improved exam. CV: Regular distant S1S2 no m/g/r ABD : (+) bowel sounds, soft nontender Extremities : no clubbing, cyanosis, or edema; skin is warm and dry. No rash. PSYCH: Normal mentation. Not anxious. Objective Data Vital Signs Vital Signs: Vital Signs - 24 hr 12/30/22 10:58 12/30/22 11:58 12/30/22 13:19 Temperature 36.3 C L Pulse Rate 112 H 85 Respiratory Rate 20 20 Blood Pressure 123/84 Pulse Oximetry 91 Oxygen Delivery High Flow Therapy with Na Oxygen Flow Rate 5 Fraction of Inspired Oxygen 12/30/22 13:23 12/30/22 13:48 12/30/22 12:00 Temperature Pulse Rate 85 93 Respiratory Rate 20 Blood Pressure Pulse Oximetry 95 Oxygen Delivery High Flow Nasal Cannula Oxygen Hao
[2022-12-31 12:08] LABS: Glucose Point of Care 180 mg/dl (65-105)
[2022-12-31] MEDS: MUPIROCIN 2% OINT 22 GM TUBE 1 APPLIC EACH NARE ×2 (13:07→21:17)
--- NOTE | 2022-12-31 14:24 | PM.IMPN ---
Progress Note: A&P Assessment and Plan (1) Acute on chronic respiratory failure with hypercapnia: Code(s): J96.22 - Acute and chronic respiratory failure with hypercapnia Status: Inactive Assessment and Plan: Secondary to noncompliance with BiPAP, ongoing tobacco abuse (2 to 3 packs a day!), and viral URI. She tested negative for influenza, RSV, and COVID at the outside facility. She has been started on BiPAP and has had several adjustments with minimal improvement. She remains keenly alert and oriented and does not wish to be intubated at this time. She understands that she may very well end up on a ventilator and she would be okay with that if necessary. Pulmonology consulted for recommendations. 12/29/2022 interval history: 62-year-old female with long history of heavy smoking, and chronic respiratory failure on home oxygen presented with the emergency department with complaint of shortness of breath is found to have hypercarbic respiratory failure secondary to exacerbation of COPD patient was placed on BiPAP and being treated with methylprednisone and bronchodilator patient is also being treated for atypical pneumonia with azithromycin, patient states feeling much better compared to when she arrived, currently patient is off BiPAP, not as short of breath, patient was seen by pulmonology recommended to taper steriods as her wheezing improves, and requested NPPV for home use as patient is not using BIPAP at home, and patient clinical symptoms are improving, day patient seen by pulmonology and taper of Solu-Medrol to prednisone patient completed 5 day course of azithromycin, further recommendation to follow, patient will be seen by orthodontist again. 12/30/2022: 62-year-old female with long history smoking and chronic respiratory failure on home oxygen presented with shortness of breath. Found to have hypercapnic respiratory failure secondary to COPD exacerbation placed on BiPAP. Treated with methylprednisolone and bronchodilators and atypical pneumonia with HD through mycin. Uses BiPAP at night. Pulmonary consulted. Requested NPPV for home use. 01/01/2020 3:60 2-year-old female with long history of smoking chronic respiratory failure on home oxygen presented with shortness of breath. Found to have hypercapnic respiratory failure secondary to COPD exacerbation was placed on BiPAP. Treated with methylprednisolone and bronchodilators and at atypical pneumonia with antibiotics. Sputum culture showed MRSA. Chest x-ray has been negative and hence pneumonia is not suspected related to MRSA and could be upper respiratory: Ideation. Mupirocin has been ordered as suggested by the Pulmonary. BiPAP at night which she has continued to use. Needs BiPAP at home which is ordered pending insurance approval. (2) Acute exacerbation of chronic obstructive airways disease: Code(s): J44.1 - Chronic obstructive pulmonary disease with (acute) exacerbation Status: Inactive Assessment and Plan: Continue scheduled bronchodilators and Solu-Medrol. She has been started on azithromycin given increasing cough and sputum production. No evidence of pneumonia on chest x-ray. (3) Obstructive sleep apnea: Code(s): G47.33 - Obstructive sleep apnea (adult) (pediatric) Status: Acute Assessment and Plan: She has been noncompliant with BiPAP as per HPI. (4) Hypertension: Code(s): I10 - Essential (primary) hypertension Status: Acute Assessment and Plan: Blood pressures were reviewed and they are of been stable. Continue antihypertensives and monitor. (5) Type 2 diabetes mellitus: Code(s): E11.9 - Type 2 diabetes mellitus without complications Status: Acute Assessment and Plan: Will need to monitor glucose closely while receiving Solu-Medrol. Continue empagliflozin and semaglutide. Initiate sliding scale insulin, Accu-Cheks, and hypoglycemic protocol. Check A1c. (6) Tobacco ab
[2022-12-31 16:24] LABS: Glucose Point of Care 208 mg/dl (65-105)
[2022-12-31] MEDS: INSULIN ASPART (*BKC) 100 UNITS/ML SUB-Q (16:59)
[2022-12-31 20:17] LABS: Glucose Point of Care 196 mg/dl (65-105)
[2022-12-31] MEDS: BENZOCAINE/MENTHOL (*BKC) 18 EA LOZENGE 1 LOZENGE PO (21:18)
[2023-01-01] VITALS (24 sets, daily range): BP systolic 104–131; BP diastolic 48–68; PULSE 58–103; RESP 15–23; TEMP 36.2–36.6; O2SAT 96–100
[2023-01-01] MEDS: ACETAMINOPHEN 325 MG TABLET 650 MG PO (02:00)
[2023-01-01] MEDS: IPRATROPIUM BR 0.02% INH SOLN 0.5 MG/2.5 ML VIAL INHALATION ×4 (02:00→20:16)
[2023-01-01] MEDS: LEVALBUTEROL NEB 1.25 MG/3 ML INHALATION ×4 (02:01→20:16)
[2023-01-01 04:51] LABS: Hematocrit 41.1 % (37.0-47.0); Hemoglobin 13.2 g/dL (12.0-15.0); Mean Corpuscular HGB Conc 32.1 g/dl (32-36); Mean Corpuscular Hemoglobin 29.2 pg (26-34); Mean Corpuscular Volume 90.9 fl (80-100); Mean Platelet Volume 8.7 fl (7.4-10.4); Platelet Count Result 366 k/mm3 (150-375); Red Blood Count 4.52 M/mm3 (4.2-5.4); Red Cell Distribution Width 12.9 % (11.5-14.5); White Blood Count 17.3 K/mm3 (4.5-10.0)
[2023-01-01 05:36] LABS: Blood Urea Nitrogen 33 mg/dL (7-17); Calcium 8.3 mg/dL (8.4-10.2); Carbon Dioxide > 40 mmol/L (22-30); Chloride 87 mmol/L (98-107); Estimated CRCL calculation 71 ml/min; Estimated Glomerular Filt Rate > 60; Glucose 117 mg/dL (65-110); Potassium 3.8 mmol/L (3.4-5.0); Sodium 131 mmol/L (137-145)
[2023-01-01 08:14] LABS: Glucose Point of Care 115 mg/dl (65-105)
[2023-01-01] MEDS: FLUTICASONE/UMECLIDIN/VILANTER 100-62.5-25 MCG ELLIPTA 1 PUFF INHALATION (08:59)
[2023-01-01] MEDS: busPIRone HCL 5 MG TABLET PO ×2 (10:12→20:08)
[2023-01-01] MEDS: CLOPIDOGREL BISULFATE 75 MG TABLET PO (10:12)
[2023-01-01] MEDS: FERROUS SULFATE 324 MG TABLET PO (10:12)
[2023-01-01] MEDS: predniSONE 20 MG TABLET 40 MG PO (10:12)
[2023-01-01] MEDS: ATORVASTATIN 40 MG TABLET PO (10:12)
[2023-01-01] MEDS: THERAPEUTIC MULTIVITAMINS/MINERALS TAB (*BKC) 1 TABLET PO (10:12)
[2023-01-01] MEDS: METOPROLOL SUCCINATE EXT REL 25 MG TABCR PO (10:12)
[2023-01-01] MEDS: MONTELUKAST SODIUM 10 MG TABLET PO (10:12)
[2023-01-01] MEDS: FLUTICASONE PROPIONATE 0.05% NA SPR 16 GM BTL (*BKC) 1 SPRAY NASAL ×2 (10:13→20:08)
[2023-01-01] MEDS: hydroCHLOROthiazide 25 MG TABLET PO (10:13)
[2023-01-01] MEDS: PANTOPRAZOLE 40 MG TABLET PO (10:13)
[2023-01-01] MEDS: ASPIRIN 81 MG CHEWABLE TABLET PO (10:13)
[2023-01-01] MEDS: LOSARTAN POTASSIUM 100 MG TABLET PO (10:13)
[2023-01-01] MEDS: LORATADINE 10 MG TABLET PO (10:13)
[2023-01-01] MEDS: EMPAGLIFLOZIN 25 MG TABLET PO (10:13)
[2023-01-01] MEDS: BENZOCAINE/MENTHOL (*BKC) 18 EA LOZENGE 1 LOZENGE PO ×5 (10:14→23:15)
[2023-01-01] MEDS: MUPIROCIN 2% OINT 22 GM TUBE 1 APPLIC EACH NARE ×2 (10:14→20:09)
[2023-01-01] MEDS: NICOTINE (*PBKC) 21 MG PATCH 1 PATCH TRANSDERM (10:21)
[2023-01-01] MEDS: SODIUM CHLORIDE NASAL GEL 14.1 GM 1 APPLIC NASAL ×2 (10:22→17:47)
--- NOTE | 2023-01-01 10:48 | PM.IMPN ---
Progress Note: A&P Assessment and Plan (1) Acute on chronic respiratory failure with hypercapnia: Code(s): J96.22 - Acute and chronic respiratory failure with hypercapnia Status: Inactive Assessment and Plan: Secondary to noncompliance with BiPAP, ongoing tobacco abuse (2 to 3 packs a day!), and viral URI. She tested negative for influenza, RSV, and COVID at the outside facility. She has been started on BiPAP and has had several adjustments with minimal improvement. She remains keenly alert and oriented and does not wish to be intubated at this time. She understands that she may very well end up on a ventilator and she would be okay with that if necessary. Pulmonology consulted for recommendations. 12/29/2022 interval history: 62-year-old female with long history of heavy smoking, and chronic respiratory failure on home oxygen presented with the emergency department with complaint of shortness of breath is found to have hypercarbic respiratory failure secondary to exacerbation of COPD patient was placed on BiPAP and being treated with methylprednisone and bronchodilator patient is also being treated for atypical pneumonia with azithromycin, patient states feeling much better compared to when she arrived, currently patient is off BiPAP, not as short of breath, patient was seen by pulmonology recommended to taper steriods as her wheezing improves, and requested NPPV for home use as patient is not using BIPAP at home, and patient clinical symptoms are improving, day patient seen by pulmonology and taper of Solu-Medrol to prednisone patient completed 5 day course of azithromycin, further recommendation to follow, 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 12/30/2022: 62-year-old female with long history smoking and chronic respiratory failure on home oxygen presented with shortness of breath. Found to have hypercapnic respiratory failure secondary to COPD exacerbation placed on BiPAP. Treated with methylprednisolone and bronchodilators and atypical pneumonia with HD through mycin. Uses BiPAP at night. Pulmonary consulted. Requested NPPV for home use. 01/01/2020 3:60 2-year-old female with long history of smoking chronic respiratory failure on home oxygen presented with shortness of breath. Found to have hypercapnic respiratory failure secondary to COPD exacerbation was placed on BiPAP. Treated with methylprednisolone and bronchodilators and at atypical pneumonia with antibiotics. Sputum culture showed MRSA. Chest x-ray has been negative and hence pneumonia is not suspected related to MRSA and could be upper respiratory: Ideation. Mupirocin has been ordered as suggested by the Pulmonary. BiPAP at night which she has continued to use. Needs BiPAP at home which is ordered pending insurance approval. 01/01/2023:62-year-old female with long history of smoking chronic respiratory failure on home oxygen presented with shortness of breath. Found to have hypercapnic respiratory failure secondary to COPD exacerbation was placed on BiPAP. Treated with methylprednisolone and bronchodilators and at atypical pneumonia with antibiotics. Sputum culture showed MRSA. Chest x-ray has been negative and hence pneumonia is not suspected related to MRSA and could be upper respiratory: Ideation. Mupirocin has been ordered as suggested by the Pulmonary. BiPAP at night which she has continued to use. Needs BiPAP at home which is ordered pending insurance approval. (2) Acute exacerbation of chronic obstructive airways disease: Code(s): J44.1 - Chronic obstructive pulmonary disease with (acute) exacerbation Status: Inactive Assessment and Plan: Continue scheduled bronchodilators and Solu-Medrol. She has been started on azithromycin given increasing cough and sputum production. No evidence of pneumonia on chest x-ray. (3) Obstructive sleep apnea: Code(s): G47.33 - Obstructive sleep apnea (adult) (pediatric) Status: Acute Asse
--- NOTE | 2023-01-01 11:23 | PM.PNPUL ---
Progress Note: A&P Assessment and Plan (1) Acute on chronic respiratory failure with hypoxia and hypercapnia: Code(s): J96.21 - Acute and chronic respiratory failure with hypoxia; J96.22 - Acute and chronic respiratory failure with hypercapnia Status: Acute Assessment and Plan: End stage COPD with acute on chronic hypercapnic hypoxemic failure, no infiltrate. contributing factors include heaving smoking and non-compliance with PAP therapy. (2) COPD (chronic obstructive pulmonary disease): Code(s): J44.9 - Chronic obstructive pulmonary disease, unspecified Status: Acute Assessment and Plan: respiratory status significantly improved. Patient no longer has shortness of breath wheezing; clear sputum with mild cough. FiO2 down to baseline. last chest x-ray showed no active lung disease. Patient grew Staph aureus MRSA in sputum, probably colonization. Started on mupirocin. Elevated WBC likely due to steroid use. Plan:Awaiting home ventilator approval so that patient can be discharged home. I would continue with same maintenance bronchodilators and short-acting bronchodilators. Have discontinued oral steroids. Await home ventilator approval so that she can go home. (3) Tobacco abuse: Code(s): Z72.0 - Tobacco use Status: Acute Assessment and Plan: Maximum 2-3 packs per day, smoked less however smoked up until this admission. Plan clinical improvement noted also FiO2 down to 5 liters/minute which is her baseline. chest x-ray showed no new infiltrates. She is not tolerating BiPAP support due to high pressures. Will try lower BiPAP pressures tonight while waiting for home ventilator. Sputum grew Staph aureus final report pending. Significance of culture report unclear at this point. Will proceed with MRSA screening. Will consider discontinuing steroids soon. continue with incentive spirometry, physical therapy, out of bed to chair. Subjective Date/time seen: 01/01/23 11:23 No new respiratory problems. Patient waiting for home ventilator approval. Used BiPAP support last night. Currently fully awake with no shortness of breath while on supplemental oxygen. Has had mild cough with clear sputum production. Still on steroids. Review of Systems Review of Systems: All systems reviewed & are unremarkable except as noted in HPI and below Exam Narrative: GEN: Alert, oriented, not in distress, less dyspnea. HEENT: pupils are equal, EOMI, symmetrical face; oral membranes moist, Mallampati IV airway. She has a thick tongue, mouth is open most of the time, NECK: Trachea is midline CHEST: Equal air entry, symmetric excursion, no wheezes, improved exam. CV: Regular distant S1S2 no m/g/r ABD : (+) bowel sounds, soft nontender Extremities : no clubbing, cyanosis, or edema; skin is warm and dry. No rash. PSYCH: Normal mentation. Not anxious. Objective Data Vital Signs Vital Signs: Vital Signs - 24 hr 12/31/22 12:00 12/31/22 12:00 12/31/22 12:00 Temperature 36.4 C L Pulse Rate 90 89 Respiratory Rate 16 Blood Pressure 115/64 Pulse Oximetry 95 98 Oxygen Delivery Nasal Cannula Oxygen Flow Rate 4 Fraction of Inspired Oxygen 12/31/22 14:00 12/31/22 14:50 12/31/22 14:59 Temperature Pulse Rate 82 79 75 Respiratory Rate 18 18 Blood Pressure Pulse Oximetry Oxygen Delivery Oxygen Flow Rate Fraction of Inspired Oxygen 12/31/22 16:00 12/31/22 16:00 12/31/22 18:00 Temperature 36.6 C Pulse Rate 76 76 78 Respiratory Rate 16 Blood Pressure 95/52 L Pulse Oximetry 100 Oxygen Delivery Oxygen Flow Rate Fraction of Inspired Oxygen
[2023-01-01 12:18] LABS: Glucose Point of Care 198 mg/dl (65-105)
[2023-01-01 16:47] LABS: Glucose Point of Care 226 mg/dl (65-105)
[2023-01-01] MEDS: INSULIN ASPART (*BKC) 100 UNITS/ML SUB-Q (17:48)
[2023-01-01 19:44] LABS: Glucose Point of Care 209 mg/dl (65-105)
[2023-01-02] VITALS (26 sets, daily range): BP systolic 104–115; BP diastolic 54–67; PULSE 66–101; RESP 16–24; TEMP 35.8–36.5; O2SAT 94–100
[2023-01-02] MEDS: BENZOCAINE/MENTHOL (*BKC) 18 EA LOZENGE 1 LOZENGE PO ×7 (00:45→20:16)
[2023-01-02] MEDS: ACETAMINOPHEN 325 MG TABLET 650 MG PO (03:19)
[2023-01-02] MEDS: IPRATROPIUM BR 0.02% INH SOLN 0.5 MG/2.5 ML VIAL INHALATION ×4 (03:33→20:47)
[2023-01-02] MEDS: LEVALBUTEROL NEB 1.25 MG/3 ML INHALATION ×4 (03:33→20:47)
[2023-01-02 05:31] LABS: Hematocrit 37.7 % (37.0-47.0); Hemoglobin 12.1 g/dL (12.0-15.0); Mean Corpuscular HGB Conc 32.1 g/dl (32-36); Mean Corpuscular Hemoglobin 29.9 pg (26-34); Mean Corpuscular Volume 93.1 fl (80-100); Mean Platelet Volume 9.3 fl (7.4-10.4); Platelet Count Result 312 k/mm3 (150-375); Red Blood Count 4.05 M/mm3 (4.2-5.4); Red Cell Distribution Width 13.1 % (11.5-14.5)
[2023-01-02 05:44] LABS: Blood Urea Nitrogen 30 mg/dL (7-17); Carbon Dioxide > 40 mmol/L (22-30); Chloride 88 mmol/L (98-107); Estimated CRCL calculation 80 ml/min; Estimated Glomerular Filt Rate > 60; Glucose 114 mg/dL (65-110); Potassium 3.6 mmol/L (3.4-5.0); Sodium 130 mmol/L (137-145)
[2023-01-02] MEDS: FLUTICASONE/UMECLIDIN/VILANTER 100-62.5-25 MCG ELLIPTA 1 PUFF INHALATION (08:13)
[2023-01-02 08:23] LABS: Glucose Point of Care 128 mg/dl (65-105)
[2023-01-02] MEDS: FLUTICASONE PROPIONATE 0.05% NA SPR 16 GM BTL (*BKC) 1 SPRAY NASAL ×2 (10:19→20:17)
[2023-01-02] MEDS: LOSARTAN POTASSIUM 100 MG TABLET PO (10:20)
[2023-01-02] MEDS: CLOPIDOGREL BISULFATE 75 MG TABLET PO (10:20)
[2023-01-02] MEDS: MUPIROCIN 2% OINT 22 GM TUBE 1 APPLIC EACH NARE ×2 (10:20→20:17)
[2023-01-02] MEDS: PANTOPRAZOLE 40 MG TABLET PO (10:20)
[2023-01-02] MEDS: ATORVASTATIN 40 MG TABLET PO (10:20)
[2023-01-02] MEDS: busPIRone HCL 5 MG TABLET PO ×2 (10:20→20:16)
[2023-01-02] MEDS: METOPROLOL SUCCINATE EXT REL 25 MG TABCR PO (10:20)
[2023-01-02] MEDS: THERAPEUTIC MULTIVITAMINS/MINERALS TAB (*BKC) 1 TABLET PO (10:21)
[2023-01-02] MEDS: LORATADINE 10 MG TABLET PO (10:21)
[2023-01-02] MEDS: hydroCHLOROthiazide 25 MG TABLET PO (10:21)
[2023-01-02] MEDS: ASPIRIN 81 MG CHEWABLE TABLET PO (10:21)
[2023-01-02] MEDS: EMPAGLIFLOZIN 25 MG TABLET PO (10:22)
[2023-01-02] MEDS: MONTELUKAST SODIUM 10 MG TABLET PO (10:22)
[2023-01-02] MEDS: SODIUM CHLORIDE NASAL GEL 14.1 GM 1 APPLIC NASAL ×4 (10:22→20:17)
[2023-01-02] MEDS: NICOTINE (*PBKC) 21 MG PATCH 1 PATCH TRANSDERM (10:29)
--- NOTE | 2023-01-02 11:17 | PM.PNPUL ---
Progress Note: A&P Assessment and Plan (1) Acute on chronic respiratory failure with hypoxia and hypercapnia: Code(s): J96.21 - Acute and chronic respiratory failure with hypoxia; J96.22 - Acute and chronic respiratory failure with hypercapnia Status: Acute Assessment and Plan: End stage COPD with acute on chronic hypercapnic hypoxemic failure, no infiltrate. contributing factors include heaving smoking and non-compliance with PAP therapy. (2) COPD (chronic obstructive pulmonary disease): Code(s): J44.9 - Chronic obstructive pulmonary disease, unspecified Status: Acute Assessment and Plan: respiratory status significantly improved. Patient no longer has shortness of breath wheezing; clear sputum with mild cough. FiO2 down to baseline. last chest x-ray showed no active lung disease. Patient grew Staph aureus MRSA in sputum, probably colonization. Started on mupirocin. Elevated WBC likely due to steroid use. Plan:Awaiting home ventilator approval so that patient can be discharged home. I would continue with same maintenance bronchodilators and short-acting bronchodilators. Have discontinued oral steroids. Await home ventilator approval so that she can go home. (3) Tobacco abuse: Code(s): Z72.0 - Tobacco use Status: Acute Assessment and Plan: Maximum 2-3 packs per day, smoked less however smoked up until this admission. Plan clinical improvement noted also FiO2 down to 5 liters/minute which is her baseline. chest x-ray showed no new infiltrates. Patient seems to tolerate lower BiPAP pressures while waiting for home ventilator approval. She has been off steroids. Anticipate DC home in a day or so. Subjective Date/time seen: 01/02/23 11:17 Patient has no new respiratory symptoms. out of bed in chair, on supplemental oxygen. No chest congestion no coughing anxious to go home. Waiting home ventilator approval. Review of Systems Review of Systems: All systems reviewed & are unremarkable except as noted in HPI and below Exam Narrative: GEN: Alert, oriented, not in distress, less dyspnea. HEENT: pupils are equal, EOMI, symmetrical face; oral membranes moist, Mallampati IV airway. She has a thick tongue, mouth is open most of the time, NECK: Trachea is midline CHEST: Equal air entry, symmetric excursion, no wheezes, improved exam. CV: Regular distant S1S2 no m/g/r ABD : (+) bowel sounds, soft nontender Extremities : no clubbing, cyanosis, or edema; skin is warm and dry. No rash. PSYCH: Normal mentation. Not anxious. Objective Data Vital Signs Vital Signs: Vital Signs - 24 hr 01/01/23 12:00 01/01/23 12:00 01/01/23 12:00 Temperature 36.2 C L Pulse Rate 94 96 Respiratory Rate 20 Blood Pressure 131/60 Pulse Oximetry 97 96 Oxygen Delivery Nasal Cannula Oxygen Flow Rate 4 Fraction of Inspired Oxygen 01/01/23 14:00 01/01/23 14:15 01/01/23 14:00 Temperature Pulse Rate 83 80 82 Respiratory Rate 18 18 Blood Pressure Pulse Oximetry Oxygen Delivery Oxygen Flow Rate Fraction of Inspired Oxygen 01/01/23 15:32 01/01/23 16:00 01/01/23 16:00 Temperature 36.2 C L Pulse Rate 76 75 Respiratory Rate 20 Blood Pressure 105/51 L Pulse Oximetry 96 97 Oxygen Delivery Nasal Cannula Oxygen Flow Rate 4 Fraction of Inspired Oxygen 01/01/23 18:00 01/01/23 19:58 01/01/23 20:16 Temperature 36.6 C Pulse Rate 82 80 78 Respiratory Rate 22 H 16 Blood Pressure 104/48 L Pulse Oximetry 97 Oxygen Delivery Oxygen Flow Rate Fraction of Inspired Oxygen 01/01/23 23:09 01/01/23 23:12 01/01/23 20:00 Temperature 36.6 C
[2023-01-02 12:27] LABS: Glucose Point of Care 165 mg/dl (65-105)
--- NOTE | 2023-01-02 13:53 | PM.IMPN ---
Progress Note: A&P Assessment and Plan (1) Acute on chronic respiratory failure with hypercapnia: Code(s): J96.22 - Acute and chronic respiratory failure with hypercapnia Status: Inactive Assessment and Plan: Secondary to noncompliance with BiPAP, ongoing tobacco abuse (2 to 3 packs a day!), and viral URI. She tested negative for influenza, RSV, and COVID at the outside facility. She has been started on BiPAP and has had several adjustments with minimal improvement. She remains keenly alert and oriented and does not wish to be intubated at this time. She understands that she may very well end up on a ventilator and she would be okay with that if necessary. Pulmonology consulted for recommendations. 12/29/2022 interval history: 62-year-old female with long history of heavy smoking, and chronic respiratory failure on home oxygen presented with the emergency department with complaint of shortness of breath is found to have hypercarbic respiratory failure secondary to exacerbation of COPD patient was placed on BiPAP and being treated with methylprednisone and bronchodilator patient is also being treated for atypical pneumonia with azithromycin, patient states feeling much better compared to when she arrived, currently patient is off BiPAP, not as short of breath, patient was seen by pulmonology recommended to taper steriods as her wheezing improves, and requested NPPV for home use as patient is not using BIPAP at home, and patient clinical symptoms are improving, day patient seen by pulmonology and taper of Solu-Medrol to prednisone patient completed 5 day course of azithromycin, further recommendation to follow, patient will be seen by sewer contractor again. 12/30/2022: 62-year-old female with long history smoking and chronic respiratory failure on home oxygen presented with shortness of breath. Found to have hypercapnic respiratory failure secondary to COPD exacerbation placed on BiPAP. Treated with methylprednisolone and bronchodilators and atypical pneumonia with HD through mycin. Uses BiPAP at night. Pulmonary consulted. Requested NPPV for home use. 01/01/2020 3:60 2-year-old female with long history of smoking chronic respiratory failure on home oxygen presented with shortness of breath. Found to have hypercapnic respiratory failure secondary to COPD exacerbation was placed on BiPAP. Treated with methylprednisolone and bronchodilators and at atypical pneumonia with antibiotics. Sputum culture showed MRSA. Chest x-ray has been negative and hence pneumonia is not suspected related to MRSA and could be upper respiratory: Ideation. Mupirocin has been ordered as suggested by the Pulmonary. BiPAP at night which she has continued to use. Needs BiPAP at home which is ordered pending insurance approval. 01/01/2023:62-year-old female with long history of smoking chronic respiratory failure on home oxygen presented with shortness of breath. Found to have hypercapnic respiratory failure secondary to COPD exacerbation was placed on BiPAP. Treated with methylprednisolone and bronchodilators and at atypical pneumonia with antibiotics. Sputum culture showed MRSA. Chest x-ray has been negative and hence pneumonia is not suspected related to MRSA and could be upper respiratory: Ideation. Mupirocin has been ordered as suggested by the Pulmonary. BiPAP at night which she has continued to use. Needs BiPAP at home which is ordered pending insurance approval. 01/02/2023: 62-year-old female with long history of smoking chronic respiratory failure on home oxygen presented with shortness of breath. Found to have hypercapnic respiratory failure secondary to COPD exacerbation. She was placed on BiPAP. Treated with methylprednisolone and bronchodilators and atypical pneumonia with antibiotics and steroid. Sputum culture grew out MRSA. Chest x-ray has been negative and hence pneumonia is not suspected related to MRSA and could be upper respiratory colonization. Mu
--- NOTE | 2023-01-02 14:05 | PC.NURSE ---
This patient, Damaris Jacinto, was transferred to [[id number] ] on 01/02/23 at 1406. Personal belongings sent with patient. Report given to [[facility]SH ]. Appropriate documentation sent with patient.
[2023-01-02] MEDS: WATER FOR IRRIGATION, STERILE 1,000 ML BOTTLE 1000 ML (14:20)
[2023-01-02 16:51] LABS: Glucose Point of Care 152 mg/dl (65-105)
[2023-01-02 20:20] LABS: Glucose Point of Care 161 mg/dl (65-105)
[2023-01-03] VITALS (10 sets, daily range): BP systolic 97–109; BP diastolic 51–56; PULSE 70–98; RESP 18–20; TEMP 35.8–36.2; O2SAT 96–97
[2023-01-03] MEDS: BENZOCAINE/MENTHOL (*BKC) 18 EA LOZENGE 1 LOZENGE PO ×2 (01:03→09:26)
[2023-01-03] MEDS: IPRATROPIUM BR 0.02% INH SOLN 0.5 MG/2.5 ML VIAL INHALATION ×3 (02:59→14:41)
[2023-01-03] MEDS: LEVALBUTEROL NEB 1.25 MG/3 ML INHALATION ×3 (03:00→14:41)
--- NOTE | 2023-01-03 03:06 | ECG_ITS ---
Measurements Intervals [place] Rate: 89 P: 71 [place]: 125 QRS: 20 QRSD: 86 T: 68 QT: 367 QTc: 447 Interpretive Statements SINUS RHYTHM WITH OCCASIONAL SUPRAVENTRICULAR PREMATURE COMPLEXES MILD NONSPECIFIC T-WAVE ABNORMALITY BORDERLINE ECG COMPARED WITH 12/24/2022 NO SIGNIFICANT CHANGE Electronically Signed On 01-03-2023 7:10:23 CDT by Michele Cornell M.D.
[2023-01-03 03:43] LABS: Hematocrit 38.7 % (37.0-47.0); Hemoglobin 12.5 g/dL (12.0-15.0); Mean Corpuscular HGB Conc 32.3 g/dl (32-36); Mean Corpuscular Hemoglobin 29.7 pg (26-34); Mean Corpuscular Volume 91.9 fl (80-100); Platelet Count Result 288 k/mm3 (150-375); Red Blood Count 4.21 M/mm3 (4.2-5.4); Red Cell Distribution Width 13.2 % (11.5-14.5); White Blood Count 11.4 K/mm3 (4.5-10.0)
[2023-01-03] MEDS: MORPHINE SULFATE (*CRX) 2 MG/ML INJ 1 MG IV PUSH (03:44)
[2023-01-03 04:07] LABS: Troponin I 0.014 ng/mL (0.000-0.034)
[2023-01-03 04:34] LABS: Blood Urea Nitrogen 24 mg/dL (7-17); Calcium 8.2 mg/dL (8.4-10.2); Carbon Dioxide > 40 mmol/L (22-30); Chloride 91 mmol/L (98-107); Estimated CRCL calculation 80 ml/min; Estimated Glomerular Filt Rate > 60; Glucose 109 mg/dL (65-110); Magnesium 1.9 mg/dL (1.6-2.3); Potassium 3.3 mmol/L (3.4-5.0); Sodium 130 mmol/L (137-145)
[2023-01-03 06:59] LABS: Troponin I 0.016 ng/mL (0.000-0.034)
[2023-01-03 07:37] LABS: Glucose Point of Care 121 mg/dl (65-105)
[2023-01-03] MEDS: FLUTICASONE/UMECLIDIN/VILANTER 100-62.5-25 MCG ELLIPTA 1 PUFF INHALATION (08:15)
[2023-01-03] MEDS: FLUTICASONE PROPIONATE 0.05% NA SPR 16 GM BTL (*BKC) 1 SPRAY NASAL (09:24)
[2023-01-03] MEDS: SODIUM CHLORIDE NASAL GEL 14.1 GM 1 APPLIC NASAL ×2 (09:24→12:33)
[2023-01-03] MEDS: hydroCHLOROthiazide 25 MG TABLET PO (09:25)
[2023-01-03] MEDS: ATORVASTATIN 40 MG TABLET PO (09:25)
[2023-01-03] MEDS: busPIRone HCL 5 MG TABLET PO (09:25)
[2023-01-03] MEDS: LOSARTAN POTASSIUM 100 MG TABLET PO (09:25)
[2023-01-03] MEDS: THERAPEUTIC MULTIVITAMINS/MINERALS TAB (*BKC) 1 TABLET PO (09:25)
[2023-01-03] MEDS: PANTOPRAZOLE 40 MG TABLET PO (09:25)
[2023-01-03] MEDS: FERROUS SULFATE 324 MG TABLET PO (09:25)
[2023-01-03] MEDS: EMPAGLIFLOZIN 25 MG TABLET PO (09:26)
[2023-01-03] MEDS: MUPIROCIN 2% OINT 22 GM TUBE 1 APPLIC EACH NARE (09:26)
[2023-01-03] MEDS: CLOPIDOGREL BISULFATE 75 MG TABLET PO (09:26)
[2023-01-03] MEDS: LORATADINE 10 MG TABLET PO (09:26)
[2023-01-03] MEDS: METOPROLOL SUCCINATE EXT REL 25 MG TABCR PO (09:26)
[2023-01-03] MEDS: MONTELUKAST SODIUM 10 MG TABLET PO (09:26)
[2023-01-03] MEDS: ASPIRIN 81 MG CHEWABLE TABLET PO (09:26)
[2023-01-03] MEDS: NICOTINE (*PBKC) 21 MG PATCH 1 PATCH TRANSDERM (09:35)
[2023-01-03 10:11] LABS: Troponin I < 0.012 ng/mL (0.000-0.034)
[2023-01-03 11:42] LABS: Glucose Point of Care 142 mg/dl (65-105)
--- NOTE | 2023-01-03 13:06 | PCRCNOTE ---
SHAVONNE FROM [facility] CALLED TO UPDATE ON TRILOGY SET UP. [employer] HAS A 7-14 DAY APPROVAL PERIOD. THEY MORE THEN LIKELY WILL WANT A PEER TO PEER WITH THE DR. SPOKE WITH DR. GARCIA AND HE IS OKAY WITH THE PATIENT GOING HOME WHEN READY ON HER OLD HOME BIPAP AND WAS OKAY WITH DOING THE PEER TO PEER. SHAVONNE WILL KEEP US UP TO DATE ON THE APPROVAL. HE DID STATE [employer] TAKES CLOSE TO 14 DAYS TO APPROVE. CARE COORDINATION UPDATED WELL.
[2023-01-03] MEDS: POTASSIUM CHLORIDE 20 MEQ TABLET 40 MEQ PO (14:15)
--- NOTE | 2023-01-03 14:43 | PM.PNPUL ---
Progress Note: A&P Assessment and Plan (1) Acute on chronic respiratory failure with hypoxia and hypercapnia: Code(s): J96.21 - Acute and chronic respiratory failure with hypoxia; J96.22 - Acute and chronic respiratory failure with hypercapnia Status: Acute Assessment and Plan: End stage COPD with acute on chronic hypercapnic hypoxemic failure, no infiltrate. contributing factors include heaving smoking and non-compliance with PAP therapy. (2) COPD (chronic obstructive pulmonary disease): Code(s): J44.9 - Chronic obstructive pulmonary disease, unspecified Status: Acute Assessment and Plan: respiratory status significantly improved. Patient no longer has shortness of breath wheezing; clear sputum with mild cough. FiO2 down to baseline. last chest x-ray showed no active lung disease. Patient grew Staph aureus MRSA in sputum, probably colonization. Started on mupirocin. Elevated WBC likely due to steroid use. Plan:Awaiting home ventilator approval so that patient can be discharged home. I would continue with same maintenance bronchodilators and short-acting bronchodilators. Have discontinued oral steroids. Await home ventilator approval so that she can go home. (3) Tobacco abuse: Code(s): Z72.0 - Tobacco use Status: Acute Assessment and Plan: Maximum 2-3 packs per day, smoked less however smoked up until this admission. Plan okay to discharge patient home as home ventilator approval may take more time. The patient will continue with her maintenance bronchodilators for COPD, short-acting bronchodilators. She will continue on BiPAP support at home while waiting new ventilator. She will need to continue with mupirocin ointment for a total 5 days. patient will need to return to pulmonary clinic for follow-up in approximately 1 month from today. Subjective Date/time seen: 01/03/23 14:43 Patient has no new respiratory symptoms this a.m.. Had chest pain last night and underwent workup with EKG and other tests. Currently has no new complaints. No cough fever chills. Still waiting for home ventilator approval. Review of Systems Review of Systems: All systems reviewed & are unremarkable except as noted in HPI and below Exam Narrative: GEN: Alert, oriented, not in distress, less dyspnea. HEENT: pupils are equal, EOMI, symmetrical face; oral membranes moist, Mallampati IV airway. She has a thick tongue, mouth is open most of the time, NECK: Trachea is midline CHEST: Equal air entry, symmetric excursion, no wheezes, improved exam. CV: Regular distant S1S2 no m/g/r ABD : (+) bowel sounds, soft nontender Extremities : no clubbing, cyanosis, or edema; skin is warm and dry. No rash. PSYCH: Normal mentation. Not anxious. Objective Data Vital Signs Vital Signs: Vital Signs - 24 hr 01/02/23 16:45 01/02/23 20:00 01/02/23 20:49 Temperature Pulse Rate 92 Respiratory Rate 18 Blood Pressure Pulse Oximetry 99 98 Oxygen Delivery Nasal Cannula Nasal Cannula Oxygen Flow Rate 4 4 Fraction of Inspired Oxygen 01/02/23 20:50 01/02/23 22:00 01/02/23 23:40 Temperature 35.8 C L Pulse Rate 82 84 Respiratory Rate 16 24 H Blood Pressure 104/54 L Pulse Oximetry 95 98 98 Oxygen Delivery High Flow Nasal Cannula BiPAP Oxygen Flow Rate 4 Fraction of Inspired Oxygen 01/03/23 03:00 01/02/23 21:05 01/03/23 03:10 Temperature Pulse Rate 98 97 97 Respiratory Rate 18 18 18 Blood Pressure Pulse Oximetry Oxygen Delivery Oxygen Flow Rate Fraction of Inspired Oxygen 01/03/23 06:00 01/03/23 08:02 01/03/23 08:02 Temperature 35.8 C L Pulse Rate 70 79 79 Respiratory Rate 20 20 20 Blood Pressure 109/56 L Pulse Oximetry 97 96 Oxygen Delivery Nasal Cannula Oxygen Flow Rate 4 Fract
[2023-01-03 16:40] LABS: Glucose Point of Care 134 mg/dl (65-105)
--- NOTE | 2023-01-03 16:46 | PM.DS ---
DS: Admitting Diagnosis Discharge Date 01/03/2023 Admitting Diagnosis Shortness of breath DS: Discharge Diagnosis Discharge Diagnosis (1) Acute on chronic respiratory failure with hypercapnia: Code(s): J96.22 - Acute and chronic respiratory failure with hypercapnia Status: Inactive (2) Acute exacerbation of chronic obstructive airways disease: Code(s): J44.1 - Chronic obstructive pulmonary disease with (acute) exacerbation Status: Inactive (3) Obstructive sleep apnea: Code(s): G47.33 - Obstructive sleep apnea (adult) (pediatric) Status: Acute (4) Hypertension: Code(s): I10 - Essential (primary) hypertension Status: Acute (5) Type 2 diabetes mellitus: Code(s): E11.9 - Type 2 diabetes mellitus without complications Status: Acute (6) Tobacco abuse: Code(s): Z72.0 - Tobacco use Status: Acute DS: Summary Hospital Course Hospital Course: # acute on chronic hypercapnic respiratory failure: 62-year-old female with long history of smoking chronic respiratory failure on home oxygen presented with shortness of breath.? Found to have hypercapnic respiratory failure secondary to COPD exacerbation.? She was placed on BiPAP.? Treated with methylprednisolone and bronchodilators and atypical pneumonia with antibiotics and steroid.? Sputum culture grew out MRSA.? Chest x-ray has been negative and hence pneumonia is not suspected related to MRSA and could be upper respiratory colonization.? Mupirocin has been ordered as suggested by the Pulmonary.? BiPAP at night suggested to be continued at discharge per chronic respiratory failure with hypercapnia.? Awaiting insurance approval for BiPAP use at home which might take some time.? She was then advised to continue with her home unit until new BiPAP will be approved. She is okay with the plan and is discharged home on home oxygen. She is back to her baseline home oxygen requirement at discharge # chronic obstructive pulmonary disease with (acute) exacerbation Continue scheduled bronchodilators and Solu-Medrol. She has been started on azithromycin given increasing cough and sputum production. No evidence of pneumonia on chest x-ray. Finished antibiotic course during the hospital stay # obstructive sleep apnea: She has been noncompliant with BiPAP as per HPI. # hypertension: Blood pressures were reviewed and they are of been stable.? Continue antihypertensives and monitor. # type 2 diabetes mellitus: Will need to monitor glucose closely while receiving Solu-Medrol. Continue empagliflozin and semaglutide. Initiate sliding scale insulin, Accu-Cheks, and hypoglycemic protocol. A1c 5.8 # tobacco abuse: ?Code(s): According to the patient's she smokes 2 to 3 packs of cigarettes a day! Smoking cessation is imperative and was discussed though she is not motivated. She declines the need for a nicotine patch. Time Spent with Patient Time attestation: Total time spent providing and/or coordinating discharge services: 45 Exam Narrative: Morbidly obese Patient is comfortable, NAD HEENT: eyes are clear and none icteric LUNGS: Bilateral fair entry with harsh breath sounds and no wheezing HEART: RR S1S2 ABD: BS+, Soft and nontender Lower extremities: no edema SKIN: nonjaundiced Neuro: grossly intact. DS: Data Data Completed and Pending Completed studies during hospitalization: Exam Type: ? ? CA echo doppler color flow Study Info Indications ? ? R06.02 - Shortness of breath Complete two-dimensional, color flow and Doppler transthoracic echocardiogram is performed with contrast to opacify the left ventricle and to improve the deliniation of the left ventricle endocardial borders. Account #: ? ? [id number] History/Risk Factors Hypertension: ? ? Yes Diabetes Mellitus: ? ? Yes Summary ? 1. Technically suboptimal study due to poor sonographic images. ? 2. Definity contrast administered improve
== END 2023-01-03 18:55 | disposition home or self-care (01) | DRG 190 ==
LOC: ANHIMU 12-28 12:34 → ANH3MEDSUR 01-02 13:42
PROVIDERS: Family Medicine; Internal Medicine; Internal Medicine Critical Care Medicine; Physician Assistant; Admitting Provider Hospitalist; PCP Internal Medicine; Visit Provider Internal Medicine
DX: J43.9 Emphysema, unspecified (principal); J96.22 Acute and chronic respiratory failure with hypercapnia; G47.33 Obstructive sleep apnea (adult) (pediatric); I10 Essential (primary) hypertension; E11.9 Type 2 diabetes mellitus without complications; F17.210 Nicotine dependence, cigarettes, uncomplicated; E66.01 Morbid (severe) obesity due to excess calories; Z68.38 Body mass index [BMI] 38.0-38.9, adult; I25.10 Atherosclerotic heart disease of native coronary artery without angina pectoris; K21.9 Gastro-esophageal reflux disease without esophagitis; F32.A Depression, unspecified; Z79.82 Long term (current) use of aspirin; Z79.899 Other long term (current) drug therapy; Z91.199 Patient's noncompliance with other medical treatment and regimen due to unspecified reason; Z99.81 Dependence on supplemental oxygen
CPT/HCPCS: 36415; 36600; 71045; 80048; 82375; 82805; 82948; 83036; 83050; 83605; 83735; 83880; 84145; 84439; 84443; 84484; 85027; 86140; 87070; 87077; 87081; 87186; 87205; 87493; 93005; 93306; 94003; 94640; 94660; 94667; 94668; 97161; 97165; A9270; J0456; J1815; J1940; J2270; J2930; J7512; Q9957

== ENCOUNTER 2023-01-10 18:29 | Emergency (ER) | payer MEDICARE, SELFPAY ==
[2023-01-10] VITALS (23 sets, daily range): BP systolic 117–143; BP diastolic 62–86; PULSE 72–96; RESP 15–24; TEMP 36.4; O2SAT 82–100
--- NOTE | ~2023-01-10 | XR_ITS ---
EXAMINATION: XR chest 2V Exam Date/Time: 01/10/2023 19:10 CDT HISTORY: sob COPD, HX STENTS Comparison: 01/03/2023. RESULT: Lines, tubes, and devices: None. Lungs and pleura: Clear. Cardiomediastinal silhouette: Stable. Other: No acute osseous or upper abdominal finding. IMPRESSION: No acute cardiopulmonary process. Reviewed, dictated and finalized at location K.
--- NOTE | 2023-01-10 18:46 | ECG_ITS ---
Measurements Intervals [place] Rate: 77 P: 30 OR: 130 QRS: 11 QRSD: 85 T: 70 QT: 381 QTc: 433 Interpretive Statements SINUS RHYTHM DELAYED PRECORDIAL R/S TRANSITION NONSPECIFIC T-WAVE ABNORMALITY- DIFFUSE LEADS BASELINE ARTIFACT- I, II, III, AVR, V5-V6 BORDERLINE ECG COMPARED TO ECG 01/03/2023 03:16:43 NO SIGNIFICANT CHANGES Electronically Signed On 01-10-2023 21:09:17 CDT by Juan Hogue D.O.
[2023-01-10 19:03] LABS: Basophils Percent Auto 0.3 % (0.2-1.2); Eosinophils Absolute Auto 0.1 K/mm3 (0-0.3); Eosinophils Percent Auto 1.5 % (0-4.4); Hematocrit 40.2 % (37.0-47.0); Hemoglobin 12.8 g/dL (12.0-15.0); Immature Granulocyte Absolute 0.01 K/mm3 (0.00-0.031); Immature Granulocyte Percent A 0.1 % (0-0.5); Lymphocytes Absolute Auto 2.02 K/mm3 (0.9-3.2); Lymphocytes Percent Auto 22.2 % (18.3-44.2); Mean Corpuscular HGB Conc 31.8 g/dl (32-36); Mean Corpuscular Hemoglobin 29.3 pg (26-34); Mean Platelet Volume 9.4 fl (7.4-10.4); Monocytes Absolute Auto 0.4 K/mm3 (0.1-0.6); Monocytes Percent Auto 4.4 % (2.6-8.5); Neutrophils Absolute Auto 6.5 K/mm3 (1.3-6.7); Neutrophils Percent Auto 71.5 % (45.5-73.1); Platelet Count Result 264 k/mm3 (150-375); Red Blood Count 4.37 M/mm3 (4.2-5.4); Red Cell Distribution Width 13.5 % (11.5-14.5); White Blood Count 9.1 K/mm3 (4.5-10.0)
[2023-01-10 19:18] LABS: Alanine Aminotransferase 31 U/L (6-35); Albumin Level 4.6 g/dL (3.5-5.1); Alkaline Phosphatase 57 U/L (38-126); Anion Gap 8 mmol/L (8-16); Aspartate Amino Transferase 30 U/L (14-36); Bilirubin,Total 0.8 mg/dL (0.2-1.3); Blood Urea Nitrogen 14 mg/dL (7-17); Calcium 7.5 mg/dL (8.4-10.2); Carbon Dioxide 39 mmol/L (22-30); Chloride 92 mmol/L (98-107); Estimated CRCL calculation 92 ml/min; Estimated Glomerular Filt Rate > 60; Glucose 108 mg/dL (65-110); Potassium 3.1 mmol/L (3.4-5.0); Sodium 139 mmol/L (137-145)
--- NOTE | 2023-01-10 19:31 | ED.GENADULT ---
HPI - General Adult General Chief complaint: Shortness of Breath/Dyspnea Stated complaint: SOB Time Seen by Provider: 01/10/23 19:14 History of Present Illness HPI narrative: This is a 62-year-old female history of COPD and anxiety presenting with shortness of breath. At 1:00 p.m. today she had 1 episode of nausea and vomiting and lightheadedness. Afterwards she became short of breath. The shortness of breath was associated with perioral tingling and hand cramping. She took a nebulizer treatment at home and has now returned to her baseline which is 4 L nasal cannula. Patient denies fever, chills, chest pain, abdominal pain, urinary symptoms. Has a smokers cough. The patient was recently started on anxiety meds. patient is still smoking. Related Data Home Medications Medication Instructions Recorded Confirmed aspirin 81 mg chewable tablet 81 mg PO DAILY 11/17/20 12/24/22 (Apoorva Chewable Low Dose Aspirin) atorvastatin 40 mg tablet 40 mg PO DAILY 11/17/20 12/24/22 clopidogrel 75 mg tablet 75 mg PO DAILY 11/17/20 12/24/22 fexofenadine 180 mg tablet 180 mg PO DAILY 11/17/20 12/24/22 (Kellee Allergy) metoprolol succinate 25 mg 25 mg PO DAILY 11/17/20 12/24/22 tablet,extended release 24 hr montelukast 10 mg tablet 10 mg PO DAILY 11/17/20 12/24/22 pantoprazole 40 mg tablet,delayed 40 mg PO QAM 11/17/20 12/24/22 release multivit-iron 18 mg-folic acid 400 1 tablet PO DAILY 07/23/21 12/24/22 mcg-calcium 450 mg-minerals tablet (One Daily Intio) empagliflozin 25 mg tablet 25 mg PO DAILY 04/27/22 12/24/22 (Jardiance) metformin 500 mg tablet,extended 500 mg PO BID 04/27/22 12/24/22 release 24 hr semaglutide 7 mg tablet (Rybelsus) 7 mg PO DAILY 04/27/22 12/24/22 losartan 100 1 tablet PO DAILY 12/24/22 12/24/22 mg-hydrochlorothiazide 25 mg tablet Allergies Allergy/AdvReac Type Severity Reaction Status Date / Time No Known Allergies Allergy Verified 01/10/23 18:56 [facility] Past Medical History Medical History Chronic respiratory failure with hypoxia and hypercapnia COPD with emphysema Coronary artery disease Depression Dyslipidemia Gastroesophageal reflux disease Hypertension Noncompliance Obstructive sleep apnea Oxygen dependent Peripheral arterial disease Type 2 diabetes mellitus Surgical History Surgical History History of angioplasty of peripheral vessel Right lower extremity. History of cardiac catheterization History of coronary artery stent placement Family History Family History Father Heart disease Acute myocardial infarction Mother Hypertension COPD (chronic obstructive pulmonary disease) Sibling Breast cancer Social History Social History Social History: Surrogate medical decision maker: Abebe Jacinto, spouse. Code status: Full code. Smoking packs per day: 2 Smoking cigarettes per day: 40.0 Years smoked: 42 Smoking pack-years: 84.00 Smoking status: Current every day smoker Tobacco type: cigarettes Second hand tobacco smoke exposure: Yes Additional smoking assessment comments: Smokes 2 to 3 packs of cigarettes a day for 40+ years. Alcohol intake: never Substance use: never Lack of Transportation: No Lack of Food: Never True Current Housing: I Have Housing Concerned About Future Housing: No Difficulty Paying Gas/Electric Bills: No Difficulty Paying for Meds: No Currently Unemployed: No Education: Don't Know Difficulty w/ Childcare or Family Care: No Additional living arrangements comments: Lives with in [place]. Additional occupation/education comments: Disabled. 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 Spiritual care concerns: No Exam Narrative: APPEARANCE: No apparent distress. sp
[2023-01-10 19:57] LABS: Lipase 79 U/L (23-300)
[2023-01-10] MEDS: MAGNESIUM SULF 2 GM/WATER 50ML 2 GM/50 ML BAG IVPB (20:07)
[2023-01-10] MEDS: ONDANSETRON INJ 4 MG/2 ML VIAL IV PUSH (20:08)
[2023-01-10] MEDS: SODIUM CHLORIDE 0.9% IV 1,000 ML 999 ML IV CONT (20:08)
[2023-01-10 20:10] LABS: NT Pro B Type Natriuretic Pept 222 pg/mL (19.9-100); Troponin I < 0.012 ng/mL (0.000-0.034)
[2023-01-10 20:52] LABS: Influenza A QL RT-PCR Negative (Negative); Influenza B QL RT-PCR Negative (Negative); RSV RNA, RT-PCR Negative (Negative); SARS-CoV-2 RNA PCR Negative (Negative)
[2023-01-10] MEDS: POTASSIUM CHLORIDE 20 MEQ TABLET 80 MEQ PO (21:56)
[2023-01-10 22:35] LABS: Troponin I < 0.012 ng/mL (0.000-0.034)
== END 2023-01-10 23:07 | disposition home or self-care (01) ==
PROVIDERS: General Practice; Emergency Provider Emergency Medicine; PCP Internal Medicine
DX: J44.9 Chronic obstructive pulmonary disease, unspecified (principal); E87.6 Hypokalemia; F41.9 Anxiety disorder, unspecified; Z20.822 Contact with and (suspected) exposure to COVID-19; J96.11 Chronic respiratory failure with hypoxia; J96.12 Chronic respiratory failure with hypercapnia; E78.5 Hyperlipidemia, unspecified; E11.51 Type 2 diabetes mellitus with diabetic peripheral angiopathy without gangrene; I73.9 Peripheral vascular disease, unspecified; K21.9 Gastro-esophageal reflux disease without esophagitis; G47.33 Obstructive sleep apnea (adult) (pediatric); F17.210 Nicotine dependence, cigarettes, uncomplicated; Z99.81 Dependence on supplemental oxygen; Z79.84 Long term (current) use of oral hypoglycemic drugs; Z79.82 Long term (current) use of aspirin; Z95.5 Presence of coronary angioplasty implant and graft; R94.31 Abnormal electrocardiogram [ECG] [EKG]
CPT/HCPCS: 36415; 71046; 80053; 83690; 83880; 84484; 85025; 87637; 93005; 94640; 96365; 96375; 99284; A9270; J1100; J2405; J3475; J7030

== ENCOUNTER 2023-06-22 08:42 | Outpatient (CLI) | payer MEDICARE, SELFPAY ==
--- NOTE | 2023-06-23 09:30 | P.PCNSIX_ITS ---
Six Minute Walk Procedure Procedure Performed Pulmonary Stress Test (6 min walk) Six Minute Walk Six Minute Walk: This is a 6 minute walk test. The test was performed and interpreted in accordance with the 2014 ERS/ATS task force guidelines. Of note, the patient wears 4 L nasal cannula at home and this test was performed on 4 L nasal cannula. Findings: The patient's resting oxygen saturation on 4 L nasal cannula measured by pulse oximetry was 92% and heart rate was 86 bpm. Patient ambulated for 244 meters and oxygen saturation remained 89 to 92%. Heart rate at the end of the study was 92 bpm. The patient did not have hypoxemia at rest or with ambulation on 4 L nasal jerrod mesfin. There are no prior studies for comparison.
--- NOTE | 2023-06-23 09:33 | WPDPFTINT ---
PFT Procedure Performed PFT Procedure Performed Spirometry with Pre/Post Bronchodilator Plethysmography (Lung Vol) Diffusing Cap (DLCO) Flow Vol Loop PFT Interpretation This is a pulmonary function test with pre and post-bronchodilator spirometry, plethysmography and diffusing capacity. The test was performed and results interpreted in accordance with the 2019 and 2005 ATS/ERS Task Force guidelines respectively using the Global Lung Function Initiative-2012 reference equations. Patient demonstrated good effort and cooperation. Reproducibility criteria were met. The quality of the pre bronchodilator spirometry maneuver was Grade A and post bronchodilator spirometry maneuver was Grade A. Findings: Spirometry: There is decreased maximal expiratory airflow at all lung volumes with concave expiratory flow tracing. The contour the inspiratory flow tracing is normal. The pre bronchodilator FVC is 1.98 L, 66% predicted. The pre bronchodilator FEV1 is 0.90 L, 38% predicted. The pre bronchodilator FEV1: FVC ratio is 45%. The post bronchodilator FVC is 2.06 L, representing a 4% increase. The post bronchodilator FEV1 is 0.90 L, representing no change. The post bronchodilator FEV1: FVC ratio is 44%. Plethysmography: The total lung capacity is 5.64 L, 115% predicted. The functional residual capacity is 4.05 L, 146% predicted. The residual volume is 3.65 L, 185% predicted. Diffusing capacity: The diffusing capacity unadjusted for hemoglobin and carboxyhemoglobin is 10.0, 48% predicted. The diffusing capacity adjusted for alveolar volume is 3.48, 78% predicted. Impression: There is a severe obstructive abnormality without significant improvement after inhaling a single dose of albuterol. The increase in residual volume is consistent with air trapping from an obstructive abnormality. Hyperinflation is present as demonstrated by the increase in functional residual capacity and is consistent with an obstructive abnormality. The diffusing capacity unadjusted for hemoglobin and carboxyhemoglobin is moderately decreased and normalizes when adjusted for alveolar volume. There are no prior studies for comparison
== END 2023-06-22 08:43 | disposition home or self-care (01) ==
LOC: ANHPFT 08:43
PROVIDERS: PCP Internal Medicine; Visit Provider Internal Medicine Pulmonary Disease
DX: J44.9 Chronic obstructive pulmonary disease, unspecified (principal); Z87.891 Personal history of nicotine dependence; R94.2 Abnormal results of pulmonary function studies
CPT/HCPCS: 94060; 94618; 94726; 94729

== ENCOUNTER 2023-06-23 14:50 | Outpatient (CLI) | payer MEDICARE, SELFPAY ==
--- NOTE | ~2023-06-23 | XR_ITS ---
XR shoulder RT min 2V 06/23/2023 15:08 Indication: Right shoulder pain Procedure: 4 views right shoulder Comparison: 06/02/2011 Findings: There is mild polyarticular osteoarthritis of the acromioclavicular and glenohumeral joints . No fracture or traumatic malalignment. No significant soft tissue abnormality. No foreign bodies. Impression: 1: Mild polyarticular osteoarthritis. Reviewed, dictated and finalized at location A. Impression: 1: Mild polyarticular osteoarthritis.
--- NOTE | ~2023-06-23 | XR_ITS ---
XR_[id number]_CR 06/23/2023 15:08 Indication: Neck pain Procedure: 4 view cervical spine Comparison: No prior studies for comparison. Findings: Straightening of cervical lordosis. There is moderate multilevel facet hypertrophy. Vertebr al body heights are maintained. There is carotid atherosclerosis. No significant prevertebral soft ti ssue abnormality. Odontoid process is unremarkable. Impression: 1: Moderate cervical spondylosis. Reviewed, dictated and finalized at location A. Impression: 1: Moderate cervical spondylosis.
== END 2023-06-23 14:51 | disposition home or self-care (01) ==
LOC: CHSIMG 14:52
PROVIDERS: PCP Internal Medicine; Visit Provider Internal Medicine
DX: M54.2 Cervicalgia (principal); M25.511 Pain in right shoulder; M19.011 Primary osteoarthritis, right shoulder; M43.02 Spondylolysis, cervical region
CPT/HCPCS: 72040; 73030

== ENCOUNTER 2023-06-26 08:44 | Outpatient (CLI) | payer MEDICARE, SELFPAY ==
--- NOTE | ~2023-06-26 | CT_ITS ---
EXAMINATION:CT lung screening DATE: 06/26/2023 09:28 INDICATION: Personal history of nicotine dependence. Current smoker with 40 pack year history. TECHNIQUE: Computed tomography (CT) of the chest was performed without intravenous contrast. Automate d exposure control and iterative reconstruction technique were employed. The dose-length product (DLP ) was 199.76 mGy-cm. COMPARISON: Chest CT 05/18/2022 FINDINGS: There is mild emphysema. There is a stable 6 mm part-solid nodule in right upper lobe. Ther e is a stable 3 mm nodule in left lower lobe. There is a stable 2 mm nodule in left upper lobe. There is mild atelectasis bilaterally. Calcified right hilar lymph nodes are consistent with old granuloma tous disease. No pleural effusion. There is a 9 mm nodule in right thyroid lobe, likely not clinicall y significant. There is mild aortic atherosclerosis. The heart size is normal. There are coronary art cassie calcifications. No pericardial effusion. There is a chronic 13 mm mass in left adrenal gland marian uring low-attenuation, consistent with an adenoma. There is mild thoracic spondylosis. IMPRESSION: 1. Lung-RADS category 2: Benign appearance or behavior. Continue annual screening with noncontrast lo w-dose chest CT in 12 months. Reviewed, dictated and finalized at location A. IMPRESSION: 1. Lung-RADS category 2: Benign appearance or behavior. Continue annual screeni ng with noncontrast low-dose chest CT in 12 months.
== END 2023-06-26 08:45 | disposition home or self-care (01) ==
PROVIDERS: PCP Internal Medicine; Visit Provider Internal Medicine Pulmonary Disease
DX: Z12.2 Encounter for screening for malignant neoplasm of respiratory organs (principal); F17.210 Nicotine dependence, cigarettes, uncomplicated
CPT/HCPCS: 71271

== ENCOUNTER 2023-09-07 08:58 | Observation (INO) | payer MEDICARE, SELFPAY ==
[2023-09-07] VITALS (34 sets, daily range): BP systolic 113–146; BP diastolic 52–89; PULSE 94–111; RESP 14–27; TEMP 35.9–37.1; O2SAT 83–100; BMI 37.5
--- NOTE | ~2023-09-07 | XR_ITS ---
XR chest 1V portable 09/07/2023 09:51 Indication: Dyspnea Procedure: AP portable chest Comparison: Comparison to multiple prior studies sequentially, with oldest reviewed study dated 12/25. Findings: Patchy bilateral airspace disease, consistent with pneumonia. Heart size normal. No pleural effusion or pneumothorax. Impression: 1: Patchy bilateral airspace disease, compatible with pneumonia. Reviewed, dictated and finalized at location B. 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
--- NOTE | 2023-09-07 09:21 | ECG_ITS ---
Measurements Intervals [place] Rate: 105 P: 62 [place]: 128 QRS: 40 QRSD: 99 T: 69 QT: 285 QTc: 377 Interpretive Statements SINUS TACHYCARDIA NONSPECIFIC T-WAVE ABNORMALITY ABNORMAL RHYTHM ECG COMPARED TO ECG 01/10/2023 18:49:11 SINUS TACHYCARDIA NOW PRESENT Electronically Signed On 09-07-2023 20:52:49 [employer] by Curly Edmonds M.D.
[2023-09-07 09:42] LABS: Basophils Absolute Auto 0.1 K/mm3 (0.0-0.1); Basophils Percent Auto 0.5 % (0.2-1.2); Eosinophils Absolute Auto 0.1 K/mm3 (0-0.3); Eosinophils Percent Auto 0.3 % (0-4.4); Hematocrit 38.2 % (37.0-47.0); Hemoglobin 11.7 g/dL (12.0-15.0); Immature Granulocyte Absolute 0.05 K/mm3 (0.00-0.031); Immature Granulocyte Percent A 0.3 % (0-0.5); Lymphocytes Percent Auto 11.1 % (18.3-44.2); Mean Corpuscular HGB Conc 30.6 g/dl (32-36); Mean Corpuscular Hemoglobin 28.5 pg (26-34); Mean Corpuscular Volume 93.2 fl (80-100); Monocytes Absolute Auto 1.4 K/mm3 (0.1-0.6); Monocytes Percent Auto 9.5 % (2.6-8.5); Neutrophils Absolute Auto 11.3 K/mm3 (1.3-6.7); Neutrophils Percent Auto 78.3 % (45.5-73.1); Platelet Count Result 412 k/mm3 (150-375); Red Cell Distribution Width 13.7 % (11.5-14.5); White Blood Count 14.5 K/mm3 (4.5-10.0)
[2023-09-07 09:52] LABS: Alanine Aminotransferase 21 U/L (6-35); Albumin Level 4.3 g/dL (3.5-5.1); Alkaline Phosphatase 109 U/L (38-126); Anion Gap 10 mmol/L (8-16); Aspartate Amino Transferase 28 U/L (14-36); Bilirubin,Total 0.7 mg/dL (0.2-1.3); Blood Urea Nitrogen 15 mg/dL (7-17); Calcium 9.2 mg/dL (8.4-10.2); Carbon Dioxide 36 mmol/L (22-30); Chloride 91 mmol/L (98-107); Estimated CRCL calculation 67 ml/min; Estimated Glomerular Filt Rate > 60; Glucose 134 mg/dL (65-110); Potassium 3.5 mmol/L (3.4-5.0); Sodium 137 mmol/L (137-145)
[2023-09-07] MEDS: ALBUTEROL SULFATE NEB 2.5 MG/3 ML INH 15 MG INHALATION (09:52)
[2023-09-07] MEDS: IPRATROPIUM BR 0.02% INH SOLN 0.5 MG/2.5 ML VIAL 1.5 MG INHALATION (09:52)
[2023-09-07 10:26] LABS: Influenza A QL RT-PCR Negative (Negative); Influenza B QL RT-PCR Negative (Negative); RSV RNA, RT-PCR Negative (Negative); SARS-CoV-2 RNA PCR Negative (Negative)
[2023-09-07] MEDS: AZITHROMYCIN 500 MG/NS 250 ML 500 MG/250 ML BAG 250 MG IVPB (11:30)
--- NOTE | 2023-09-07 12:00 | ED.GENADULT ---
HPI - General Adult General Chief complaint: Shortness of Breath/Dyspnea Stated complaint: sob Time Seen by Provider: 09/07/23 09:23 History of Present Illness HPI narrative: Patient is a 66-year-old female who presents ER with shortness of breath. Worsening over last week. Progressive new cough. Patient wears oxygen chronically. She has had progressive hypoxia over the last few days. No known sick contacts. No CP. Related Data Home Medications Medication Instructions Recorded Confirmed aspirin 81 mg chewable tablet 81 mg PO DAILY 11/17/20 09/07/23 (Apoorva Chewable Low Dose Aspirin) atorvastatin 40 mg tablet 40 mg PO DAILY 11/17/20 09/07/23 clopidogrel 75 mg tablet 75 mg PO DAILY 11/17/20 09/07/23 metoprolol succinate 25 mg 25 mg PO DAILY 11/17/20 09/07/23 tablet,extended release 24 hr montelukast 10 mg tablet 10 mg PO DAILY 11/17/20 09/07/23 pantoprazole 40 mg tablet,delayed 40 mg PO QAM 11/17/20 09/07/23 release multivit-iron 18 mg-folic acid 400 1 tablet PO DAILY 07/23/21 09/07/23 mcg-calcium 450 mg-minerals tablet (One Daily SDI) empagliflozin 25 mg tablet 25 mg PO DAILY 04/27/22 09/07/23 (Jardiance) metformin 500 mg tablet,extended 500 mg PO BID 04/27/22 09/07/23 release 24 hr semaglutide 7 mg tablet (Rybelsus) 7 mg PO DAILY 04/27/22 09/07/23 losartan 100 1 tablet PO DAILY 12/24/22 09/07/23 mg-hydrochlorothiazide 25 mg tablet gabapentin 300 mg capsule 300 mg PO HS 06/29/23 09/07/23 Allergies Allergy/AdvReac Type Severity Reaction Status Date / Time No Known Allergies Allergy Verified 06/29/23 08:52 Review of Systems Review of Systems: All systems reviewed & are unremarkable except as noted in HPI and below Constitutional: Constitutional: Reports fatigue, Reports fever(s) and Reports weakness ENT: Reports system reviewed and no additional complaints, except as documented Cardiovascular: Cardiovascular: Reports no additional cardiovascular complaints Respiratory: Respiratory: Reports cough, Reports dyspnea and Reports wheezing Gastrointestinal: Gastrointestinal: Reports no additional gastrointestinal complaints Musculoskeletal: Musculoskeletal: Reports no additional musculoskeletal complaints Integumentary/Breasts: Skin/Breast: Reports system reviewed and no additional complaints, except as docu PMFSH Past Medical History Medical History Chronic respiratory failure with hypoxia and hypercapnia COPD with emphysema Coronary artery disease Depression Dyslipidemia Gastroesophageal reflux disease Hypertension Noncompliance Obstructive sleep apnea Oxygen dependent Peripheral arterial disease Type 2 diabetes mellitus Surgical History Surgical History History of angioplasty of peripheral vessel Right lower extremity. History of cardiac catheterization History of coronary artery stent placement Family History Family History Father Heart disease Acute myocardial infarction Mother Hypertension COPD (chronic obstructive pulmonary disease) Sibling Breast cancer Social History Social History (Updated 06/29/23 @ 08:57 by Jenelle Sosa MA) Social History: Surrogate medical decision maker: Abebe Jacinto, spouse. Code status: Full code. Years smoked: 30 Smoking status: Current every day smoker Tobacco type: cigarettes Second hand tobacco smoke exposure: Yes Additional smoking assessment comments: Smokes 2 to 3 packs of cigarettes a day for 40+ years. Alcohol intake: never Substance use: never Do You Feel Safe in your Home?: Yes Lack of Transportation: No Lack of Food: Never True Current Housing: I Have Housing Concerned About Future Housing: No Difficulty Paying Gas/Electric Bills: No Difficulty Paying for Meds: No Currently Unemployed: No [employer]
[2023-09-07] MEDS: IPRATROPIUM BR 0.02% INH SOLN 0.5 MG/2.5 ML VIAL INHALATION ×2 (13:20→20:26)
[2023-09-07] MEDS: ALBUTEROL SULFATE NEB 2.5 MG/3 ML INH INHALATION ×2 (13:20→20:26)
--- NOTE | 2023-09-07 15:09 | ADMGEN ---
This patient, Damaris Jacinto, was admitted to 2 Medical Room 251-01. Patient/family oriented to hospital policies and general routines including ID bracelet, bed and alarms, visiting hours, pain management, procedures, bathroom and other care routines, personal items, smoking policy, room service/diet, and visiting hours. Information on how to activate the Rapid Response Team has been discussed. Patient/Family are encouraged to report perceived risks to care and to ask questions if they do not understand what they are told or what they should do.
--- NOTE | 2023-09-07 20:22 | PM.IMHP ---
H&P: HPI History of Present Illness Date/Time: 09/07/23 20:22 Chief Complaint: SOB Narrative: 62 y/o F presents here with SOB, fever, chills, and body aches with PMH of asthma/COPD, CAD, depression, GERD, HTN, JESSICA on CPAP, PAD, dyslipidemia, and DM2. Patient presents here with shortness of breath and npn-productive cough that began approximately 3 days ago. She has a history of COPD and asthma overlap with supplemental oxygen requirement, wears 4L NC at baseline. Shortness of breath has been accompanied by fever, chills, reduced p.o. intake, and body aches. Denies any current nausea or vomiting. Reports chronic diarrhea at baseline that tends to flare up with illnesses. Currently lives at home. Denies any associated chest pain or palpitations. ED workup revealed initial hypoxia at 83% on 4L, elevated WBC at 14.5, very mild anemia, mildly elevated platelet count, normal renal function, and viral PCR was negative. CXR showed patchy bilateral airspace disease compatible with pneumonia. Review of Systems Review of Systems: All systems reviewed & are unremarkable except as noted in HPI and below PMFSH Past Medical History Medical History Chronic respiratory failure with hypoxia and hypercapnia COPD with emphysema Coronary artery disease Depression Dyslipidemia Gastroesophageal reflux disease Hypertension Noncompliance Obstructive sleep apnea Oxygen dependent Peripheral arterial disease Type 2 diabetes mellitus Surgical History Surgical History History of angioplasty of peripheral vessel Right lower extremity. History of cardiac catheterization History of coronary artery stent placement Family History Family History Father Heart disease Acute myocardial infarction Mother Hypertension COPD (chronic obstructive pulmonary disease) Sibling Breast cancer Social History Social History Social History: Surrogate medical decision maker: Abebe Jacinto, spouse. Code status: Full code. Years smoked: 30 Smoking status: Current every day smoker Tobacco type: cigarettes Second hand tobacco smoke exposure: Yes Additional smoking assessment comments: Smokes 2 to 3 packs of cigarettes a day for 40+ years. Alcohol intake: never Substance use: never Do You Feel Safe in your Home?: Yes Lack of Transportation: No Lack of Food: Never True Current Housing: I Have Housing Concerned About Future Housing: No Difficulty Paying Gas/Electric Bills: No Difficulty Paying for Meds: No Currently Unemployed: No Education: High School Diploma/GED Difficulty w/ Childcare or Family Care: No Additional living arrangements comments: Lives with in [place]. Additional occupation/education comments: Disabled. 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 Spiritual care concerns: No Meds Home Medications and Allergies Home Medications Medication Instructions Recorded Confirmed Type aspirin 81 mg chewable tablet 81 mg PO DAILY 11/17/20 09/07/23 History (Apoorva Chewable Low Dose Aspirin) atorvastatin 40 mg tablet 40 mg PO DAILY 11/17/20 09/07/23 History clopidogrel 75 mg tablet 75 mg PO DAILY 11/17/20 09/07/23 History metoprolol succinate 25 mg 25 mg PO DAILY 11/17/20 09/07/23 History tablet,extended release 24 hr montelukast 10 mg tablet 10 mg PO DAILY 11/17/20 09/07/23 History pantoprazole 40 mg tablet,delayed 40 mg PO QAM 11/17/20 09/07/23 History release multivit-iron 18 mg-folic acid 400 1 tablet PO DAILY 07/23/21 09/07/23 History mcg-calcium 450 mg-minerals tablet ([facility]) ferrous sulfate 324 mg (65 mg 324 mg PO DIRECTED #15 tabs 04/26/22 09/07/23 Rx iron) tablet,delayed release empagliflozin 25 mg tablet 25 mg PO DA
[2023-09-07] MEDS: busPIRone HCL 5 MG TABLET PO (21:10)
[2023-09-07] MEDS: GABAPENTIN 300 MG CAPSULE PO (21:10)
[2023-09-07] MEDS: LACTATED RINGERS 1,000 ML 999 ML IV CONT (22:21)
[2023-09-07] MEDS: LACTATED RINGERS 500 ML IV CONT (22:21)
[2023-09-07] MEDS: MUPIROCIN 2% OINT 22 GM TUBE 1 APPLIC EACH NARE (22:22)
[2023-09-07] MEDS: SODIUM CHLORIDE 0.9% IV 1,000 ML 999 ML IV CONT (22:22)
[2023-09-07 23:26] LABS: Glucose Point of Care 96 mg/dl (65-105)
[2023-09-08] VITALS (17 sets, daily range): BP systolic 126–146; BP diastolic 51–62; PULSE 86–100; RESP 16–26; TEMP 36.4–37; O2SAT 92–98
[2023-09-08] MEDS: ALBUTEROL SULFATE NEB 2.5 MG/3 ML INH INHALATION ×6 (00:40→20:12)
[2023-09-08] MEDS: IPRATROPIUM BR 0.02% INH SOLN 0.5 MG/2.5 ML VIAL INHALATION ×6 (00:41→20:12)
--- NOTE | 2023-09-08 00:48 | PCRCNOTE ---
09/07/20231999 tx omitted due to care coordination.
[2023-09-08 06:44] LABS: Hemoglobin A1C 5.7 % (<5.7)
--- NOTE | 2023-09-08 07:55 | PM.IMPN ---
Progress Note: A&P Assessment and Plan (1) Pneumonia: Code(s): J18.9 - Pneumonia, unspecified organism Status: Acute Assessment and Plan: CXR: patchy bilateral airspace disease, compatible with pneumonia. WBC elevated at 14.5. Increased O2 requirement: 4L -> 6L, due to neb administration now back to 4L NC. Adding sputum culture and MRSA screening. Has previously tested for MRSA in nasopharynx and sputum in December of 2022. On Bactroban for nares. Viral PCR negative. Started on CAP treatment - azithromycin and ceftriaxone. Meets SIRS criteria: HR, RR, WBC count. adding procalcitonin to AM labs. blood cultures are pending. No current contraindications for 30 mL/kg fluid resuscitation - 2,880. currently received 300 IV, will add 2500 mL. Monitor I&Os. adding prednisone. 09/08: Patient reports she is feeling improved. Back on her normal home dose of oxygen 4 L per nasal cannula. WBCs down today to 12.6. Patient remains afebrile with stable vital signs. Will continue current antibiotics and prednisone. (2) COPD with emphysema: Qualifiers: Emphysema type: unspecified Qualified Code(s): J43.9 - Emphysema, unspecified Code(s): J43.9 - Emphysema, unspecified Status: Acute Assessment and Plan: Albuterol/Atrovent ordered Q6H scheduled - patient remains tachypneic and with loud/long expiratory wheeze. Will increase schedule to Q4H. Currently complicated by pneumonia. Continue home montelukast and trelegy. Add prednisone 40 mg PO x5 days. 09/08: No audible wheezing today. Has expiratory wheezing throughout on auscultation. Will continue current treatment. (3) Obstructive sleep apnea: Code(s): G47.33 - Obstructive sleep apnea (adult) (pediatric) Status: Acute Assessment and Plan: Continue home CPAP at night during admission. (4) Hypertension: Code(s): I10 - Essential (primary) hypertension Status: Acute Assessment and Plan: Continue home losartan-hydrochlorothiazide, and metoprolol. Also on ASA and Plavix, continued. Monitor. (5) Type 2 diabetes mellitus: Code(s): E11.9 - Type 2 diabetes mellitus without complications Status: Acute Assessment and Plan: Hypoglycemia protocol POC blood glucose ACHS home medication resumed/held - metformin held. Semaglutide and Jardiance continued correct regimen ordered - low dose TIDWM and HS A1C ordered starting prednisone tomorrow (09/08), may need to add Lantus or increase corrective dosing. Assess glucose levels tomorrow and adjust as needed. Plan Home Meds/Chronic Conditions -continue home iron, gabapentin, multivitamin, mupirocin her own appointment for nares, pantoprazole, Zofran p.r.n. Diet: Heart healthy GI Prophylaxis: Pantoprazole continued DVT Prophylaxis: SCDs, Lovenox Lines: pIV Code Status: Full Code Subjective Date/time seen: 09/08/23 07:55 Interval history: 09/07: 62 y/o F presents here with SOB, fever, chills, and body aches with PMH of asthma/COPD, CAD, depression, GERD, HTN, JESSICA on CPAP, PAD, dyslipidemia, and DM2. Patient presents here with shortness of breath and npn-productive cough that began approximately 3 days ago. She has a history of COPD and asthma overlap with supplemental oxygen requirement, wears 4L NC at baseline.? Shortness of breath has been accompanied by fever, chills, reduced p.o. intake, and body aches.? Denies any current nausea or vomiting.? Reports chronic diarrhea at baseline that tends to flare up with illnesses.? Currently lives at home.? Denies any associated chest pain or palpitations.? ED workup revealed initial hypoxia at 83% on 4L, elevated WBC at 14.5, very mild anemia, mildly elevated platelet count, normal renal function, and viral PCR was negative.? CXR showed patchy bilateral airspace disease compatible with pneumonia. 09/08: Pt has been on her normal home dose of oxygen at 4L/NC through the night
[2023-09-08 07:58] LABS: Basophils Absolute Auto 0.1 K/mm3 (0.0-0.1); Basophils Percent Auto 0.4 % (0.2-1.2); Eosinophils Absolute Auto 0.1 K/mm3 (0-0.3); Eosinophils Percent Auto 0.7 % (0-4.4); Hematocrit 35.2 % (37.0-47.0); Hemoglobin 10.7 g/dL (12.0-15.0); Immature Granulocyte Absolute 0.05 K/mm3 (0.00-0.031); Immature Granulocyte Percent A 0.4 % (0-0.5); Lymphocytes Absolute Auto 2.05 K/mm3 (0.9-3.2); Lymphocytes Percent Auto 16.3 % (18.3-44.2); Mean Corpuscular HGB Conc 30.4 g/dl (32-36); Mean Corpuscular Hemoglobin 28.5 pg (26-34); Mean Corpuscular Volume 93.9 fl (80-100); Mean Platelet Volume 9.2 fl (7.4-10.4); Monocytes Absolute Auto 1.3 K/mm3 (0.1-0.6); Monocytes Percent Auto 10.3 % (2.6-8.5); Neutrophils Percent Auto 71.9 % (45.5-73.1); Nucleated Red Blood Cells Perc 0.2 % (0.0-0.2); Platelet Count Result 393 k/mm3 (150-375); Red Blood Count 3.75 M/mm3 (4.2-5.4); Red Cell Distribution Width 13.8 % (11.5-14.5); White Blood Count 12.6 K/mm3 (4.5-10.0)
[2023-09-08 08:07] LABS: Anion Gap 6 mmol/L (8-16); Blood Urea Nitrogen 12 mg/dL (7-17); Calcium 8.7 mg/dL (8.4-10.2); Carbon Dioxide 39 mmol/L (22-30); Chloride 94 mmol/L (98-107); Estimated CRCL calculation 79 ml/min; Estimated Glomerular Filt Rate > 60; Glucose 122 mg/dL (65-110); Potassium 3.5 mmol/L (3.4-5.0); Sodium 139 mmol/L (137-145)
[2023-09-08 08:21] LABS: Glucose Point of Care 103 mg/dl (65-105)
[2023-09-08] MEDS: FERROUS SULFATE 325 MG TABLET DR 324 MG PO (08:49)
[2023-09-08] MEDS: ATORVASTATIN 40 MG TABLET PO (08:50)
[2023-09-08] MEDS: predniSONE 20 MG TABLET 40 MG PO (08:50)
[2023-09-08] MEDS: LOSARTAN POTASSIUM 100 MG TABLET PO (08:50)
[2023-09-08] MEDS: THERAPEUTIC MULTIVITAMINS/MINERALS TAB (*BKC) 1 TABLET PO (08:50)
[2023-09-08] MEDS: ASPIRIN 81 MG CHEWABLE TABLET PO (08:50)
[2023-09-08] MEDS: MONTELUKAST SODIUM 10 MG TABLET PO (08:50)
[2023-09-08] MEDS: CLOPIDOGREL BISULFATE 75 MG TABLET PO (08:50)
[2023-09-08] MEDS: busPIRone HCL 5 MG TABLET PO ×2 (08:51→20:42)
[2023-09-08] MEDS: PANTOPRAZOLE 40 MG TABLET PO (08:51)
[2023-09-08] MEDS: METOPROLOL SUCCINATE EXT REL 25 MG TABCR PO (08:51)
[2023-09-08] MEDS: hydroCHLOROthiazide 25 MG TABLET PO (08:51)
[2023-09-08] MEDS: EMPAGLIFLOZIN 25 MG TABLET PO (08:51)
[2023-09-08] MEDS: MUPIROCIN 2% OINT 22 GM TUBE 1 APPLIC EACH NARE (08:52)
[2023-09-08] MEDS: ENOXAPARIN 40 MG/0.4 ML SYRINGE SUB-Q (09:00)
[2023-09-08] MEDS: AZITHROMYCIN 500 MG/NS 250 ML 500 MG/250 ML BAG 250 MG IVPB (09:13)
[2023-09-08] MEDS: FLUTICASONE/UMECLIDIN/VILANTER 100-62.5-25 MCG ELLIPTA 1 PUFF INHALATION (09:29)
[2023-09-08 12:11] LABS: Glucose Point of Care 190 mg/dl (65-105)
[2023-09-08 17:05] LABS: Glucose Point of Care 151 mg/dl (65-105)
[2023-09-08] MEDS: INSULIN ASPART (*BKC) 100 UNITS/ML SUB-Q (20:14)
[2023-09-08] MEDS: GABAPENTIN 300 MG CAPSULE PO ×2 (20:42→22:18)
[2023-09-08] MEDS: BENZONATATE 100 MG CAPSULE PO (20:42)
[2023-09-09] VITALS (16 sets, daily range): BP systolic 116–125; BP diastolic 61–64; PULSE 77–100; RESP 18–20; TEMP 36.4–36.8; O2SAT 90–96
[2023-09-09] MEDS: IPRATROPIUM BR 0.02% INH SOLN 0.5 MG/2.5 ML VIAL INHALATION ×5 (04:20→20:37)
[2023-09-09] MEDS: ALBUTEROL SULFATE NEB 2.5 MG/3 ML INH INHALATION ×5 (04:20→20:37)
[2023-09-09] MEDS: BENZONATATE 100 MG CAPSULE PO ×3 (05:33→21:27)
[2023-09-09 06:26] LABS: Basophils Absolute Auto 0.1 K/mm3 (0.0-0.1); Basophils Percent Auto 0.4 % (0.2-1.2); Eosinophils Absolute Auto 0.1 K/mm3 (0-0.3); Eosinophils Percent Auto 1.1 % (0-4.4); Hematocrit 39.1 % (37.0-47.0); Hemoglobin 11.2 g/dL (12.0-15.0); Immature Granulocyte Absolute 0.14 K/mm3 (0.00-0.031); Immature Granulocyte Percent A 1.1 % (0-0.5); Lymphocytes Absolute Auto 2.65 K/mm3 (0.9-3.2); Lymphocytes Percent Auto 21.5 % (18.3-44.2); Mean Corpuscular HGB Conc 28.6 g/dl (32-36); Mean Corpuscular Hemoglobin 27.7 pg (26-34); Mean Corpuscular Volume 96.8 fl (80-100); Monocytes Absolute Auto 0.9 K/mm3 (0.1-0.6); Monocytes Percent Auto 7.3 % (2.6-8.5); Neutrophils Absolute Auto 8.4 K/mm3 (1.3-6.7); Neutrophils Percent Auto 68.6 % (45.5-73.1); Platelet Count Result 481 k/mm3 (150-375); Red Blood Count 4.04 M/mm3 (4.2-5.4); Red Cell Distribution Width 13.6 % (11.5-14.5); White Blood Count 12.3 K/mm3 (4.5-10.0)
[2023-09-09 06:37] LABS: Anion Gap 9 mmol/L (8-16); Blood Urea Nitrogen 14 mg/dL (7-17); Calcium 9.3 mg/dL (8.4-10.2); Carbon Dioxide 38 mmol/L (22-30); Chloride 94 mmol/L (98-107); Estimated CRCL calculation 70 ml/min; Estimated Glomerular Filt Rate > 60; Glucose 158 mg/dL (65-110); Sodium 141 mmol/L (137-145)
--- NOTE | 2023-09-09 07:28 | PM.IMPN ---
Progress Note: A&P Assessment and Plan (1) Pneumonia: Code(s): J18.9 - Pneumonia, unspecified organism <Myranda WuMony Mancilla APRN - Last Filed: 09/10/23 08:33> Status: Acute <Myranda Uriostegui ALVIN MancillaN - Last Filed: 09/10/23 08:33> Assessment and Plan: #1 PN, increased O2 requirement upon arrival needing 6 L O2, from baseline of 4 L NC CXR reveals patchy bilateral airspace disease compatible with PN -continue oxygen titration to maintain SpO2 above 93% -continue azithromycin IV every 24 hours -continue ceftriaxone IV every 24 hours -continue prednisone -continue sputum culture evaluation/original request still pending -check urine Legionella -continue gentle fluid resuscitation <Myranda Mancilla DRYERMAN/WOMAN - Last Filed: 09/10/23 08:33> (2) Obesity hypoventilation syndrome: Code(s): E66.2 - Morbid (severe) obesity with alveolar hypoventilation <Myranda BryceMony Mancilla APRN - Last Filed: 09/10/23 08:33> Status: Acute <Myranda WuMony Mancilla DRYERMAN/WOMAN - Last Filed: 09/10/23 08:33> (3) Chronic respiratory failure with hypoxia and hypercapnia: Code(s): J96.11 - Chronic respiratory failure with hypoxia; J96.12 - Chronic respiratory failure with hypercapnia <Myranda BryceMony Mancilla APRN - Last Filed: 09/10/23 08:33> Status: Acute <Myranda BryceMony Mancilla APRN - Last Filed: 09/10/23 08:33> (4) Acute on chronic respiratory failure with hypoxia and hypercapnia: Code(s): J96.21 - Acute and chronic respiratory failure with hypoxia; J96.22 - Acute and chronic respiratory failure with hypercapnia <Myranda BryceMony Mancilla APRN - Last Filed: 09/10/23 08:33> Status: Acute <Myranda Mancilla APRN - Last Filed: 09/10/23 08:33> (5) Noncompliance: Code(s): Z91.19 - Patient's noncompliance with other medical treatment and regimen <Myranda Mancilla APRN - Last Filed: 09/10/23 08:33> Status: Acute <Myranda Mancilla DRYERMAN/WOMAN - Last Filed: 09/10/23 08:33> (6) Gastroesophageal reflux disease: Code(s): K21.9 - Gastro-esophageal reflux disease without esophagitis <Myranda Mancilla DRYERMAN/WOMAN - Last Filed: 09/10/23 08:33> Status: Acute <Myranda Mancilla DRYERMAN/WOMAN - Last Filed: 09/10/23 08:33> (7) Type 2 diabetes mellitus: Code(s): E11.9 - Type 2 diabetes mellitus without complications <Myranda Mancilla, DRYERMAN/WOMAN - Last Filed: 09/10/23 08:33> Status: Acute <Myranda Mancilla DRYERMAN/WOMAN - Last Filed: 09/10/23 08:33> Assessment and Plan: Hypoglycemia protocol POC blood glucose ACHS home medication resumed/held - metformin held.? Semaglutide and Jardiance continued correct regimen ordered - low dose TIDWM and HS <Myranda Mancilla DRYERMAN/WOMAN - Last Filed: 09/10/23 08:33> (8) Dyslipidemia: Code(s): E78.5 - Hyperlipidemia, unspecified <Myranda Mancilla DRYERMAN/WOMAN - Last Filed: 09/10/23 08:33> Status: Acute <Myranda Mancilla DRYERMAN/WOMAN - Last Filed: 09/10/23 08:33> (9) Hypertension: Code(s): I10 - Essential (primary) hypertension <Myranda Mancilla DRYERMAN/WOMAN - Last Filed: 09/10/23 08:33> Status: Acute <Myranda Mancilla DRYERMAN/WOMAN - Last Filed: 09/10/23 08:33> Assessment and Plan: Continue home losartan-hydrochlorothiazide, and metoprolol.? Also on ASA and Plavix, continued.? Monitor. <Myranda WuMony Charo DRYERMAN/WOMAN - Last Filed: 09/10/23 08:33> (10) COPD with emphysema: Qualifiers: Emphysema type: unspecified Qualified Code(s): J43.9 - Emphysema, unspecified <Myranda uW. Charo, DRYERMAN/WOMAN - Last Filed: 09/10/23 08:33> Code(s): J43.9 - Emphysema, unspecified <Myranda Mancilla APRN - Last Filed: 09/10/23 08:33> Status: Acute <Myranda Mancilla APRN - Last Filed: 09/10/23 08:33> Assessment and Plan: Albuterol/Atrovent ordered Q6H scheduled - patient remains tachypneic and with loud/long expiratory wheeze. Will increase schedule to Q4H.? Currently complicated by pneumonia.? Continue home montelukast and trele
[2023-09-09] MEDS: FLUTICASONE/UMECLIDIN/VILANTER 100-62.5-25 MCG ELLIPTA 1 PUFF INHALATION (08:11)
[2023-09-09] MEDS: predniSONE 20 MG TABLET 40 MG PO (08:23)
[2023-09-09] MEDS: CLOPIDOGREL BISULFATE 75 MG TABLET PO (08:23)
[2023-09-09] MEDS: METOPROLOL SUCCINATE EXT REL 25 MG TABCR PO (08:23)
[2023-09-09] MEDS: hydroCHLOROthiazide 25 MG TABLET PO (08:23)
[2023-09-09] MEDS: busPIRone HCL 5 MG TABLET PO ×2 (08:23→20:11)
[2023-09-09] MEDS: THERAPEUTIC MULTIVITAMINS/MINERALS TAB (*BKC) 1 TABLET PO (08:23)
[2023-09-09] MEDS: PANTOPRAZOLE 40 MG TABLET PO (08:23)
[2023-09-09] MEDS: EMPAGLIFLOZIN 25 MG TABLET PO (08:23)
[2023-09-09] MEDS: ASPIRIN 81 MG CHEWABLE TABLET PO (08:23)
[2023-09-09] MEDS: ATORVASTATIN 40 MG TABLET PO (08:23)
[2023-09-09] MEDS: MONTELUKAST SODIUM 10 MG TABLET PO (08:23)
[2023-09-09] MEDS: LOSARTAN POTASSIUM 100 MG TABLET PO (08:23)
[2023-09-09] MEDS: ENOXAPARIN 40 MG/0.4 ML SYRINGE SUB-Q (08:24)
[2023-09-09] MEDS: AZITHROMYCIN 500 MG/NS 250 ML 500 MG/250 ML BAG 250 MG IVPB (08:24)
[2023-09-09] MEDS: MUPIROCIN 2% OINT 22 GM TUBE 1 APPLIC EACH NARE (08:24)
[2023-09-09 09:10] LABS: Glucose Point of Care 138 mg/dl (65-105)
[2023-09-09] MEDS: POTASSIUM CHLORIDE INJ 40 MEQ in SODIUM CHLORIDE 0.9% IV 500 ML 130 MEQ IVPB (11:34)
[2023-09-09 11:46] LABS: Glucose Point of Care 141 mg/dl (65-105)
[2023-09-09 17:11] LABS: Glucose Point of Care 138 mg/dl (65-105)
[2023-09-09 20:05] LABS: Glucose Point of Care 158 mg/dl (65-105)
[2023-09-09] MEDS: GABAPENTIN 300 MG CAPSULE 600 MG PO (20:12)
[2023-09-10] VITALS (11 sets, daily range): BP systolic 109; BP diastolic 62; PULSE 83–104; RESP 18–22; TEMP 36.6; O2SAT 90–98
[2023-09-10] MEDS: IPRATROPIUM BR 0.02% INH SOLN 0.5 MG/2.5 ML VIAL INHALATION ×4 (00:27→12:19)
[2023-09-10] MEDS: ALBUTEROL SULFATE NEB 2.5 MG/3 ML INH INHALATION ×4 (00:27→12:19)
[2023-09-10] MEDS: BENZONATATE 100 MG CAPSULE PO (05:38)
[2023-09-10 05:50] LABS: Blood Urea Nitrogen 18 mg/dL (7-17); Calcium 9.4 mg/dL (8.4-10.2); Carbon Dioxide > 40 mmol/L (22-30); Chloride 94 mmol/L (98-107); Estimated CRCL calculation 70 ml/min; Estimated Glomerular Filt Rate > 60; Glucose 115 mg/dL (65-110); Potassium 3.6 mmol/L (3.4-5.0); Sodium 143 mmol/L (137-145)
[2023-09-10 05:54] LABS: Basophils Absolute Auto 0.1 K/mm3 (0.0-0.1); Basophils Percent Auto 0.5 % (0.2-1.2); Eosinophils Absolute Auto 0.1 K/mm3 (0-0.3); Eosinophils Percent Auto 1.3 % (0-4.4); Hemoglobin 11.7 g/dL (12.0-15.0); Immature Granulocyte Absolute 0.12 K/mm3 (0.00-0.031); Immature Granulocyte Percent A 1.1 % (0-0.5); Lymphocytes Absolute Auto 2.93 K/mm3 (0.9-3.2); Lymphocytes Percent Auto 26.9 % (18.3-44.2); Mean Corpuscular HGB Conc 29.3 g/dl (32-36); Mean Corpuscular Hemoglobin 28.1 pg (26-34); Mean Corpuscular Volume 95.9 fl (80-100); Mean Platelet Volume 8.8 fl (7.4-10.4); Monocytes Absolute Auto 0.8 K/mm3 (0.1-0.6); Monocytes Percent Auto 7.7 % (2.6-8.5); Neutrophils Absolute Auto 6.8 K/mm3 (1.3-6.7); Neutrophils Percent Auto 62.5 % (45.5-73.1); Platelet Count Result 535 k/mm3 (150-375); Red Blood Count 4.17 M/mm3 (4.2-5.4); Red Cell Distribution Width 13.4 % (11.5-14.5); White Blood Count 10.9 K/mm3 (4.5-10.0)
[2023-09-10] MEDS: ATORVASTATIN 40 MG TABLET PO (07:59)
[2023-09-10] MEDS: predniSONE 20 MG TABLET 40 MG PO (07:59)
[2023-09-10] MEDS: CLOPIDOGREL BISULFATE 75 MG TABLET PO (07:59)
[2023-09-10] MEDS: ASPIRIN 81 MG CHEWABLE TABLET PO (07:59)
[2023-09-10] MEDS: THERAPEUTIC MULTIVITAMINS/MINERALS TAB (*BKC) 1 TABLET PO (08:00)
[2023-09-10] MEDS: FERROUS SULFATE 325 MG TABLET DR 324 MG PO (08:00)
[2023-09-10] MEDS: EMPAGLIFLOZIN 25 MG TABLET PO (08:01)
[2023-09-10] MEDS: AZITHROMYCIN 500 MG/NS 250 ML 500 MG/250 ML BAG 250 MG IVPB (08:01)
[2023-09-10] MEDS: busPIRone HCL 5 MG TABLET PO (08:01)
[2023-09-10] MEDS: LOSARTAN POTASSIUM 100 MG TABLET PO (08:01)
[2023-09-10] MEDS: MONTELUKAST SODIUM 10 MG TABLET PO (08:01)
[2023-09-10] MEDS: METOPROLOL SUCCINATE EXT REL 25 MG TABCR PO (08:01)
[2023-09-10] MEDS: PANTOPRAZOLE 40 MG TABLET PO (08:02)
[2023-09-10] MEDS: hydroCHLOROthiazide 25 MG TABLET PO (08:02)
[2023-09-10] MEDS: MUPIROCIN 2% OINT 22 GM TUBE 1 APPLIC EACH NARE (08:02)
[2023-09-10] MEDS: ENOXAPARIN 40 MG/0.4 ML SYRINGE SUB-Q (08:02)
[2023-09-10 08:30] LABS: Glucose Point of Care 113 mg/dl (65-105)
--- NOTE | 2023-09-10 08:34 | PM.DS ---
DS: Admitting Diagnosis Discharge Date 09/10/2023 Admitting Diagnosis SOB DS: Discharge Diagnosis Discharge Diagnosis (1) Pneumonia: Code(s): J18.9 - Pneumonia, unspecified organism Status: Acute (2) Obesity hypoventilation syndrome: Code(s): E66.2 - Morbid (severe) obesity with alveolar hypoventilation Status: Acute (3) Chronic respiratory failure with hypoxia and hypercapnia: Code(s): J96.11 - Chronic respiratory failure with hypoxia; J96.12 - Chronic respiratory failure with hypercapnia Status: Acute (4) Noncompliance: Code(s): Z91.19 - Patient's noncompliance with other medical treatment and regimen Status: Acute (5) Type 2 diabetes mellitus: Code(s): E11.9 - Type 2 diabetes mellitus without complications Status: Acute (6) COPD with emphysema: Qualifiers: Emphysema type: unspecified Qualified Code(s): J43.9 - Emphysema, unspecified Code(s): J43.9 - Emphysema, unspecified Status: Acute (7) Tobacco abuse: Code(s): Z72.0 - Tobacco use Status: Acute (8) JESSICA (obstructive sleep apnea): Code(s): G47.33 - Obstructive sleep apnea (adult) (pediatric) Status: Acute DS: Summary Hospital Course Reason for hospitalization: Pneumonia Hospital Course: [facility] [address] [place] [address] History & Physical Report Signed H&P: HPI History of Present Illness Date/Time: 09/07/23? 20:22 Chief Complaint: SOB Narrative: 62 y/o F presents here with SOB, fever, chills, and body aches with PMH of asthma/COPD, CAD, depression, GERD, HTN, JESSICA on CPAP, PAD, dyslipidemia, and DM2. Patient presents here with shortness of breath and npn-productive cough that began approximately 3 days ago. She has a history of COPD and asthma overlap with supplemental oxygen requirement, wears 4L NC at baseline.? Shortness of breath has been accompanied by fever, chills, reduced p.o. intake, and body aches.? Denies any current nausea or vomiting.? Reports chronic diarrhea at baseline that tends to flare up with illnesses.? Currently lives at home.? Denies any associated chest pain or palpitations.? ED workup revealed initial hypoxia at 83% on 4L, elevated WBC at 14.5, very mild anemia, mildly elevated platelet count, normal renal function, and viral PCR was negative.? CXR showed patchy bilateral airspace disease compatible with pneumonia. 09/08: Pt has been on her normal home dose of oxygen at 4L/NC through the night.? Will order repeat labwork.? Pt reports that she is feeling much better than when she came in.? Reports fever at home of 101.8. WBC's trending downward from 14.5 in the ED to 12.6 today.? Will continue with Rocephin and azithromycin and reassess in the morning. 09/09:? Patient seen this morning, she denies any SOB, nausea vomiting fever chills, she denies any overnight events. Pt reports she is feeling much better since her admission. 09/10/2023: Patient seen this morning denies any overnight events, she reports has had to increase her oxygen use with activity. She denies any shortness of breath fever chills nausea vomiting. Requesting discharge to home. Time spent discussing smoking cessation with patient: more than 10 minutes Status at Discharge Functional status at discharge: independent ambulation Overall status at discharge: patient is back to baseline Time Spent with Patient Time attestation: Total time spent providing and/or coordinating discharge services: Time spent: Greater than 30 minutes Exam Const: General: cooperative, no acute distress and overweight Orientation/consciousness: oriented to person Limitations: no limitations HENMT: Head: normal to inspection Face and sinus: normal facial exam Mouth: Yes Normal oral and palatal mucosa present Teeth and gingiva: poor dentition Eyes: General: appearance normal, both eyes and all related structures Pupils: Equal, round and reactive p
[2023-09-10] MEDS: FLUTICASONE/UMECLIDIN/VILANTER 100-62.5-25 MCG ELLIPTA 1 PUFF INHALATION (08:40)
[2023-09-10 11:59] LABS: Glucose Point of Care 174 mg/dl (65-105)
== END 2023-09-10 13:05 | disposition home or self-care (01) ==
LOC: ANHED 09:38 → ANH3MEDSUR 14:33 → ANH2MED 15:49 → ANH3MEDSUR 09-13 07:58
PROVIDERS: Nurse Practitioner Family; Student in an Organized Health Care Education/Training Program; Admitting Provider Internal Medicine; Emergency Provider Emergency Medicine; PCP Internal Medicine; Visit Provider Nurse Practitioner
DX: J18.9 Pneumonia, unspecified organism (principal); J43.9 Emphysema, unspecified; G47.33 Obstructive sleep apnea (adult) (pediatric); Z99.89 Dependence on other enabling machines and devices; I10 Essential (primary) hypertension; E11.51 Type 2 diabetes mellitus with diabetic peripheral angiopathy without gangrene; J96.22 Acute and chronic respiratory failure with hypercapnia; B95.62 Methicillin resistant Staphylococcus aureus infection as the cause of diseases classified elsewhere; Z91.148 Patient's other noncompliance with medication regimen for other reason; Z99.81 Dependence on supplemental oxygen; D64.9 Anemia, unspecified; R00.0 Tachycardia, unspecified; Z20.822 Contact with and (suspected) exposure to COVID-19; I25.10 Atherosclerotic heart disease of native coronary artery without angina pectoris; Z95.5 Presence of coronary angioplasty implant and graft; F32.A Depression, unspecified; K21.9 Gastro-esophageal reflux disease without esophagitis; E78.5 Hyperlipidemia, unspecified; K52.9 Noninfective gastroenteritis and colitis, unspecified; Z98.62 Peripheral vascular angioplasty status; F17.210 Nicotine dependence, cigarettes, uncomplicated; Z79.82 Long term (current) use of aspirin; Z79.01 Long term (current) use of anticoagulants; Z79.84 Long term (current) use of oral hypoglycemic drugs; Z79.51 Long term (current) use of inhaled steroids; Z79.899 Other long term (current) drug therapy
CPT/HCPCS: 36415; 71045; 80048; 80053; 82948; 83036; 85025; 87040; 87081; 87637; 93005; 94640; 96365; 96366; 96367; 96376; 99285; A9270; G0378; J0456; J0696; J1650; J1815; J3480; J7030; J7040; J7120; J7512

== ENCOUNTER 2023-12-12 14:58 | Inpatient (IN) | payer MEDICARE, SELFPAY ==
[2023-12-12] VITALS (11 sets, daily range): BP systolic 124–143; BP diastolic 63–71; PULSE 91–107; RESP 15–25; TEMP 36.3–36.9; O2SAT 86–97; BMI 35.4
--- NOTE | ~2023-12-12 | XR_ITS ---
Clinical Indication: Shortness of breath PA and lateral views of the chest: Comparison: 09/07/2023 Findings: The lungs are clear, without evidence of focal consolidation or pleural effusion. Cardiome diastinal silhouette is within normal limits. Bones and soft tissues are unremarkable. Impression: Clear lungs. Reviewed, dictated and finalized at location . Impression: Clear lungs.
--- NOTE | 2023-12-12 15:39 | ECG_ITS ---
Measurements Intervals [place] Rate: 91 P: 52 [place]: 124 QRS: 14 QRSD: 90 T: 73 QT: 321 QTc: 397 Interpretive Statements SINUS RHYTHM WITH OCCASIONAL SUPRAVENTRICULAR PREMATURE COMPLEXES NONSPECIFIC T-WAVE ABNORMALITY COMPARED TO ECG 09/07/2023 09:28:41 SINUS RHYTHM NOW PRESENT Electronically Signed On 12-13-2023 8:45:56 CDT by Curly Edmonds M.D.
--- NOTE | 2023-12-12 15:52 | PC.NURSE ---
Pt to Xray on O2 and tele monitor via stretcher at this time
[2023-12-12 15:55] LABS: Basophils Percent Auto 0.3 % (0.2-1.2); Eosinophils Absolute Auto 0.2 K/mm3 (0-0.3); Eosinophils Percent Auto 1.7 % (0-4.4); Hemoglobin 12.1 g/dL (12.0-15.0); Immature Granulocyte Absolute 0.05 K/mm3 (0.00-0.031); Immature Granulocyte Percent A 0.4 % (0-0.5); Lymphocytes Absolute Auto 2.01 K/mm3 (0.9-3.2); Lymphocytes Percent Auto 16.7 % (18.3-44.2); Mean Corpuscular HGB Conc 30.3 g/dl (32-36); Mean Corpuscular Hemoglobin 27.8 pg (26-34); Mean Platelet Volume 8.5 fl (7.4-10.4); Monocytes Absolute Auto 0.9 K/mm3 (0.1-0.6); Monocytes Percent Auto 7.7 % (2.6-8.5); Neutrophils Absolute Auto 8.8 K/mm3 (1.3-6.7); Neutrophils Percent Auto 73.2 % (45.5-73.1); Platelet Count Result 494 k/mm3 (150-375); Red Blood Count 4.35 M/mm3 (4.2-5.4); Red Cell Distribution Width 13.6 % (11.5-14.5)
[2023-12-12 16:12] LABS: Alanine Aminotransferase 13 U/L (6-35); Alkaline Phosphatase 80 U/L (38-126); Aspartate Amino Transferase 20 U/L (14-36); Bilirubin,Total 0.4 mg/dL (0.2-1.3); Blood Urea Nitrogen 13 mg/dL (7-17); Carbon Dioxide > 40 mmol/L (22-30); Chloride 85 mmol/L (98-107); Estimated CRCL calculation 76 ml/min; Estimated Glomerular Filt Rate > 60; Glucose 123 mg/dL (65-110); Potassium 2.6 mmol/L (3.4-5.0); Sodium 137 mmol/L (137-145)
[2023-12-12] MEDS: IPRATROPIUM 0.5 MG/ALBUTEROL SULFATE 2.5 MG AMPUL.NEB 3 ML INHALATION (16:51)
[2023-12-12] MEDS: methylPREDNISolone SOD SUCC 125 MG VIAL IV PUSH (17:28)
[2023-12-12] MEDS: POTASSIUM CHLORIDE INJ 40 MEQ in SODIUM CHLORIDE 0.9% IV 500 ML 130 MEQ IVPB (17:30)
[2023-12-12] MEDS: SODIUM CHLORIDE 0.9% IV 1,000 ML 50 ML IV CONT (17:31)
--- NOTE | 2023-12-12 17:45 | ED.SOB ---
HPI - SOB/Dyspnea General Chief Complaint: Shortness of Breath/Dyspnea Stated Complaint: cough, shortness of breath Time Seen by Provider: 12/12/23 15:56 Source: patient and family Mode of arrival: ambulatory Limitations: no limitations History of Present Illness HPI Narrative: 63-year-old with a history of COPD on 4 L of home oxygen here with a complaint of shortness of breath, weakness for past few days. Patient states that she had to increase her O2 to 5 L. she also complains of cough which is mostly nonproductive at times it is mucoid in nature. She denies any chest pain. Denies any fever or chills. No history of nausea vomiting or abdominal pain MD elicited complaint: shortness of breath and cough Pertinent past history: COPD Onset (ago): week(s) (1) Timing: constant Exacerbating factors: exertion Relieving factors: oxygen, rest and bronchodilators Known history of: COPD Associated symptoms: denies other symptoms Treatment prior to arrival: oxygen (5 lts) Related Data Home oxygen amount: 4 liters Home Medications Medication Instructions Recorded Confirmed aspirin 81 mg chewable tablet 81 mg PO DAILY 11/17/20 09/07/23 (Apoorva Chewable Low Dose Aspirin) atorvastatin 40 mg tablet 40 mg PO DAILY 11/17/20 09/07/23 clopidogrel 75 mg tablet 75 mg PO DAILY 11/17/20 09/07/23 metoprolol succinate 25 mg 25 mg PO DAILY 11/17/20 09/07/23 tablet,extended release 24 hr montelukast 10 mg tablet 10 mg PO DAILY 11/17/20 09/07/23 pantoprazole 40 mg tablet,delayed 40 mg PO QAM 11/17/20 09/07/23 release multivit-iron 18 mg-folic acid 400 1 tablet PO DAILY 07/23/21 09/07/23 mcg-calcium 450 mg-minerals tablet (One Daily [employer]) empagliflozin 25 mg tablet 25 mg PO DAILY 04/27/22 09/07/23 (Jardiance) metformin 500 mg tablet,extended 500 mg PO BID 04/27/22 09/07/23 release 24 hr semaglutide 7 mg tablet (Rybelsus) 7 mg PO DAILY 04/27/22 09/07/23 losartan 100 1 tablet PO DAILY 12/24/22 09/07/23 mg-hydrochlorothiazide 25 mg tablet gabapentin 300 mg capsule 600 mg PO HS 06/29/23 09/08/23 Allergies Allergy/AdvReac Type Severity Reaction Status Date / Time No Known Allergies Allergy Verified 12/12/23 14:59 Review of Systems Review of Systems: All systems reviewed & are unremarkable except as noted in HPI and below Constitutional: Constitutional: Reports no additional constitutional complaints Eyes: Eyes: Reports no additional eye complaints ENT: Reports system reviewed and no additional complaints, except as documented Cardiovascular: Cardiovascular: Reports no additional cardiovascular complaints Respiratory: Respiratory: Reports as per HPI Gastrointestinal: Gastrointestinal: Reports no additional gastrointestinal complaints Musculoskeletal: Musculoskeletal: Reports no additional musculoskeletal complaints Neurologic: Reports system reviewed and no additional complaints, except as documented Psychiatric: Psychiatric: Reports no additional psychiatric complaints Endocrine: Endocrine: Reports no additional endocrine complaints [facility] Past Medical History Medical History Chronic respiratory failure with hypoxia and hypercapnia COPD with emphysema Coronary artery disease Depression Dyslipidemia Gastroesophageal reflux disease Hypertension Noncompliance Obstructive sleep apnea Oxygen dependent Peripheral arterial disease Type 2 diabetes mellitus Surgical History Surgical History History of angioplasty of peripheral vessel Right lower extremity. History of cardiac catheterization History of coronary artery stent placement Family History Family History Father Heart disease Acute myocardial infarction Mother Hypertension COPD (chronic obstructive pulmonary disease) Sibling Breast cancer Social History Social History Social History: Surrogate medical decision maker: Abebe Jacinto, spouse. Code status: Full code. Years smoked: 30 Smoking status: Current every day smoker Tobacco type: cigarettes Second hand tobacco smoke exposure: Yes Additional smoking assessment comments: Smokes 2 to 3 packs of cigarettes a day for 40+ years. Alcohol intake: never Substance use: never Do You Feel Safe in your Home?: Yes Lack of Transportation: No Lack of Food: Never True Current Housing: I Have Housing Concerned About Future Housing: No Difficulty Paying Gas/Electric Bills: No Difficulty Paying for Meds: No Currently Unemployed: No Education: High School Diploma/GED Difficulty w/ Childcare or Family Care: No Additional living arrangements comments: Lives with in [place]. Additional occupation/education comments: Disabled. 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 Spiritual care concerns: No Exam Narrative: GENERAL: Well-appearing, well-nourished, and in no acute distress. HEAD: Normocephalic, atraumatic. EYES: PERRLA and EOMI. ENT: Nares clear, no rhinorrhea or epistaxis. Mucous membranes moist. NECK: Supple. CHEST: Bilateral wheeze. No respiratory distress. HEART: Regular rate and rhythm. No murmur heard. Normal peripheral pulses. ABDOMEN: Soft, nontender, nondistended, normal active bowel sounds. EXTREMITIES: Normal range of motion. No edema. SKIN: Warm, dry, no rash. NEURO: No focal deficits. Alert and oriented x3. PSYCH: Normal mood and affect. Course Course Emergency Course: Patient was given IV Solu-Medrol and nebulizer treatment. She was feeling better however she still feels extremely weak I discussed lab work, chest x-ray findings with the patient and . She prefers to be admitted overnight. Discussed with the hospitalist accepted the patient Vital Signs Vital signs: Vital Signs Temperature 36.3 C L 12/12/23 15:23 Pulse Rate 100 12/12/23 15:23 Respiratory Rate 22 H 12/12/23 15:23 Blood Pressure 125/63 12/12/23 15:23 Pulse Oximetry 86 L 12/12/23 15:23 Oxygen Delivery Nasal Cannula 12/12/23 15:23 Oxygen Flow Rate 6 12/12/23 15:23 Temperature 36.3 C L 12/12/23 15:23 Pulse Rate 95 12/12/23 17:32 Respiratory Rate 25 H 12/12/23 17:32 Blood Pressure 124/68 12/12/23 17:32 Pulse Oximetry 93 12/12/23 17:32 Oxygen Delivery Nasal Cannula 12/12/23 15:48 Oxygen Flow Rate 6 12/12/23 15:48 MDM - SOB/Dyspnea Differential Diagnosis Differential diagnosis: Likely acute exacerbation of chronic obstructive airways disease, congestive heart failure and community acquired pneumonia Medical Records Attestation: I reviewed the patient's medical records. Lab Data Attestation: I reviewed the patient's lab results. 12/12/23 15:51 12/12/23 15:51 Labs: Lab Results 12/12/23 Range/Units 15:51 WBC 12.0 H (4.5-10.0) K/mm3 RBC 4.35 (4.2-5.4) M/mm3 Hgb 12.1 (12.0-15.0) g/dL Hct 40.0 (37.0-47.0) % MCV 92.0 (80-100) fl MCH 27.8 (26-34) pg MCHC 30.3 L (32-36) g/dl RDW 13.6 (11.5-14.5) % Plt Count 494 H (150-375) k/mm3 MPV 8.5 (7.4-10.4) fl Immature Gran % (Auto) 0.4 (0-0.5) % Neut % (Auto) 73.2 H (45.5-73.1) % Lymph % (Auto) 16.7 L (18.3-44.2) % [place] % (Auto) 7.7 (2.6-8.5) % Eos % (Auto) 1.7 (0-4.4) % Baso % (Auto) 0.3 (0.2-1.2) % Lymph # (Auto) 2.01 (0.9-3.2) K/mm3 [place] # (Auto) 0.9 H (0.1-0.6) K/mm3 Eos # (Auto) 0.2 (0-0.3) K/mm3 Baso # (Auto) 0.0 (0.0-0.1) K/mm3 Abs Immat Gran (auto) 0.05 H (0.00-0.031) K/mm3 Absolute Neuts (auto) 8.8 H (1.3-6.7) K/mm3 Absolute Nucleated RBC 0.000 (0.0-0.012) K/mm3 Nucleated RBC % 0.0 (0.0-0.2) % Sodium 137 (137-145) mmol/L Potassium 2.6 L* (3.4-5.0) mmol/L Chloride 85 L (98-107) mmol/L Carbon Dioxide > 40 H (22-30) mmol/L Anion Gap (4-12) mmol/L BUN 13 D (7-17) mg/dL Creatinine 0.70 (0.7-1.0) mg/dL Estim Creat Clear Calc 76 ml/min Estimated GFR > 60 (59 - ) Glucose 123 H (65-110) mg/dL Calcium 9.0 (8.4-10.2) mg/dL Total Bilirubin 0.4 (0.2-1.3) mg/dL AST 20 (14-36) U/L ALT 13 (6-35) U/L Alkaline Phosphatase 80 (38-126) U/L Total Protein 7.0 (6.3-8.2) g/dL Albumin 4.0 (3.5-5.1) g/dL Imaging Data Radiologist's impression: ITS Impressions Chest X-Ray 12/12/23 16:07 Impression: Clear lungs. ECG Data EKG #1: ECG completion date: 12/12/23 ECG completion time: 15:41 EKG Interpretation: normal rate (91), sinus rhythm, no ectopy, non-specific ST changes, no ST changes, normal QT and NL axis Discharge Plan Discharge Clinical Impression: COPD exacerbation, Acute hypokalemia Patient Disposition: Still a Patient Condition: Stable Prescriptions: No Action losartan-hydrochlorothiazide 100-25 mg tablet 1 tablet PO DAILY gabapentin 300 mg capsule 600 mg PO HS atorvastatin 40 mg tablet 40 mg PO DAILY pantoprazole 40 mg tablet,delayed release (DR/EC) 40 mg PO QAM Hold Instructions: Resume on 09/13/23. hold while taking home antibiotic montelukast 10 mg tablet 10 mg PO DAILY metoprolol succinate 25 mg tablet extended release 24 hr 25 mg PO DAILY clopidogrel 75 mg tablet 75 mg PO DAILY aspirin [Apoorva Chewable Aspirin] 81 mg tablet,chewable 81 mg PO DAILY One [employer] 18 mg iron-400 mcg-450 mg Ca tablet 1 tablet PO DAILY Rybelsus 7 mg tablet 7 mg PO DAILY Jardiance 25 mg tablet 25 mg PO DAILY metformin 500 mg tablet extended release 24 hr 500 mg PO BID ondansetron 4 mg tablet,disintegrating 4 mg PO Q8H PRN (Reason: nausea and vomiting) Qty: 30 0RF buspirone 5 mg Tablet 5 mg PO Q12HR Qty: 60 0RF mupirocin 2 % Ointment 1 applic EACH NARE Q12HR 5 Days Qty: 30 0RF azithromycin 500 mg tablet 500 mg PO DAILY 2 Days Qty: 2 0RF Rx Instructions: start on day 2 of therapy prednisone 20 mg tablet 40 mg PO DAILY 2 Days Qty: 4 0RF cefuroxime axetil 500 mg tablet 500 mg PO BID 2 Days Qty: 4 0RF ferrous sulfate 324 mg (65 mg iron) tablet,delayed release (DR/EC) 324 mg PO DIRECTED Qty: 15 2RF Rx Instructions: Take 1 tablet by mouth every other day in the morning on empty stomach albuterol sulfate [Ventolin HFA] 90 mcg/actuation HFA aerosol inhaler 2 puff inhalation Q4H PRN (Reason: shortness of breath or wheezing) Qty: 1 4RF albuterol sulfate 2.5 mg /3 mL (0.083 %) solution for nebulization See Rx Instructions .ROUTE .COMPLEX Qty: 1080 3RF Dose Instruction: INHALE THE CONTENTS OF 1 VIAL VIA NEBULIZER EVERY 6 HOURS NEEDED FOR SHORTNESS OF BREATH OR WHEEZING Rx Instructions: INHALE THE CONTENTS OF 1 VIAL VIA NEBULIZER EVERY 6 HOURS NEEDED FOR SHORTNESS OF BREATH OR WHEEZING Trelegy Ellipta 100-62.5-25 mcg blister with device 1 inh inhalation Q24H 90 Days Qty: 180 1RF Rx Instructions: Rinse and spit. Follow-up/Referrals: Oscar Finn MD [Primary Care Provider] -
[2023-12-12 18:00] LABS: Alveolar/Arterial O2 Gradient 150.6 mmHg; Base Excess ABG 19.1 mEq/l (+/-2.0); Fractional Inspired Oxygen 40 %; HCO3 ABG 46.4 mEq/l (22.0-26.0); Oxygen Content ABG 15.6 %vol (16.0-22.0); Oxygen Saturation ABG 90.3 % (95.0-100.0); Oxyhemoglobin 88.1 % THb (90.0-100.0); PO2 ABG 57.8 mmHg (80.0-100.0); PO2 FiO2 Ratio Arterial Blood 1.44 %; Total Hemoglobin 12.6 g/dL (12.0-18.0)
[2023-12-12 18:02] LABS: Device NASAL CANNULA; PCO2 ABG 66.8 mmHg (35.0-45.0); Site Drawn RIGHT BRACHIAL
[2023-12-12 19:37] LABS: Magnesium 1.1 mg/dL (1.6-2.3)
[2023-12-12 20:45] LABS: Glucose Point of Care 203 mg/dl (65-105)
--- NOTE | 2023-12-12 22:08 | PM.IMHP ---
H&P: HPI History of Present Illness Date/Time: 12/12/23 22:08 Chief Complaint: Shortness of breath Narrative: 63-year-old female with MS medical history chronic hypercapnic hypoxic respiratory failure, continued tobacco abuse, COPD, severe obstructive sleep apnea intolerant to CPAP, peripheral artery disease, essential hypertension and 2 diabetes among other comorbidities who presented to the hospital from home after 2.5 weeks of shortness of breath. Patient reports that she has had a largely nonproductive cough the cough has been worsening. His been accompanied by fatigue. She stated at the beginning of her symptoms was having low-grade fever up to 100.2 occurred for 3 days. The symptoms have since resolved. She reports that she is usually on 4 L nasal cannula been increased her home oxygen requirement of 5 L nasal cannula with her recent symptoms and required 6 L nasal cannula in the ER to maintain oxygenation above 90%. In ER on arrival her sats were down to 86% she denies any recent ill contacts. She denies any chest pain or palpitations. She denies lower extremity swelling or pain. She reports that her appetite has been stable. She has been vaccinated against flu, RSV, COVID and pneumonia this year. She has chronic intermittent loose stools that her unchanged from baseline. The patient reports that her glucoses have been a little bit higher than usual the last few days with fasting glucoses in the 180s. She reports that she really and had anything to eat per to coming to the ER today in her glucose was in the 200s. Her last A1c was 5.7 per report. She reports that she has been wheezing more than usual. In the ER the patient was noted have mild leukocytosis potassium of 2.6 and a serum bicarb of greater than 40. Her ABG on 5 L nasal cannula demonstrated pH 7.46 pCO2 of 66 and PO2 of 57 correlating with oxygen saturation of 90% in a calculated bicarb of 46. Her sodium was low at 2.6 in her magnesium was low at 1.1. Patient received 40 mEq potassium chloride IV.36 Patient received 125 IV Solu-Medrol, albuterol and Atrovent nebulizer times x1 and was admitted as observation status Review of Systems Review of Systems: 12 systems were reviewed with pertinent positives and negatives per HPI. Except as documented in the HPI, all other systems were reviewed and are negative. [facility] Past Medical History Medical History (Updated 12/13/23 @ 03:25 by Shazia Torres DO) Chronic respiratory failure with hypoxia and hypercapnia COPD with emphysema Coronary artery disease Depression Dyslipidemia Gastroesophageal reflux disease Hypertension Noncompliance Obesity hypoventilation syndrome Obstructive sleep apnea Intolerant therapy Oxygen dependent Peripheral arterial disease Type 2 diabetes mellitus Surgical History Surgical History History of angioplasty of peripheral vessel Right lower extremity. History of cardiac catheterization History of coronary artery stent placement Family History Family History Father Heart disease Acute myocardial infarction Mother Hypertension COPD (chronic obstructive pulmonary disease) Sibling Breast cancer Social History Social History (Updated 12/13/23 @ 03:21 by Shazia Torres DO) Social History: She has smoked 2-3 packs per day. She has cut back to 3-4 cigarettes a day. She denies any significant alcohol or illicit substance use. Surrogate medical decision maker: Abebe Jacinto, spouse. Code status: Full code. Smoking packs per day: 2 Smoking cigarettes per day: 40.0 Years smoked: 40 Smoking pack-years: 80.00 Smoking status: Current every day smoker Second hand tobacco smoke exposure: Yes Alcohol intake: never Substance use: never Do You Feel Safe in your Home?: Yes Lack of Transportation: No Lack of Food: Never True Current Housing: I Have Housing Concerned About Future Housing: No Difficulty Paying Gas/Electric Bills: No Difficulty Paying for Meds: No Currently Unemployed: No Education: High School Diploma/GED Difficulty w/ Childcare or Family Care: No Additional living arrangements comments: Lives with in [place]. Having for 20 years. Additional occupation/education comments: Disabled. 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 Spiritual care concerns: No Meds Home Medications and Allergies Home Medications Medication Instructions Recorded Confirmed Type aspirin 81 mg chewable tablet 81 mg PO DAILY 11/17/20 12/12/23 History (Apoorva Chewable Low Dose Aspirin) atorvastatin 40 mg tablet 40 mg PO DAILY 11/17/20 12/12/23 History clopidogrel 75 mg tablet 75 mg PO DAILY 11/17/20 12/12/23 History metoprolol succinate 25 mg 25 mg PO DAILY 11/17/20 12/12/23 History tablet,extended release 24 hr montelukast 10 mg tablet 10 mg PO DAILY 11/17/20 12/12/23 History pantoprazole 40 mg tablet,delayed 40 mg PO QAM 11/17/20 12/12/23 History release multivit-iron 18 mg-folic acid 400 1 tablet PO DAILY 07/23/21 12/12/23 History mcg-calcium 450 mg-minerals tablet (One Daily [employer]) empagliflozin 25 mg tablet 25 mg PO DAILY 04/27/22 12/12/23 History (Jardiance) metformin 500 mg tablet,extended 500 mg PO BID 04/27/22 12/12/23 History release 24 hr albuterol sulfate 90 mcg/actuation 2 puff inhalation Q4H PRN 10/20/22 12/12/23 Rx aerosol inhaler (Ventolin HFA) shortness of breath or wheezing #1 ea losartan 100 1 tablet PO DAILY 12/24/22 12/12/23 History mg-hydrochlorothiazide 25 mg tablet Trelegy Ellipta 100 mcg-62.5 1 inh inhalation Q24H 90 days #180 05/10/23 12/12/23 Rx mcg-25 mcg powder for inhalation ea ([id number]) gabapentin 300 mg capsule 600 mg PO HS 06/29/23 12/12/23 History budesonide 1 mg/2 mL suspension 1 mg inhalation DAILY 12/12/23 12/12/23 History for nebulization ipratropium 0.5 mg-albuterol 3 mg 3 ml inhalation QID 12/12/23 12/12/23 History (2.5 mg base)/3 mL nebulization soln semaglutide 7 mg tablet (Rybelsus) 7 mg PO DAILY 12/12/23 12/12/23 History theophylline 400 mg 400 mg PO HS 12/12/23 12/12/23 History tablet,extended release 24 hr Allergies Allergy/AdvReac Type Severity Reaction Status Date / Time No Known Allergies Allergy Verified 12/12/23 14:59 Vital Signs Vital Signs - 24 hr 12/12/23 15:23 12/12/23 15:30 12/12/23 15:40 Temperature 97.4 F L Pulse Rate 100 Respiratory Rate 22 H Blood Pressure 125/63 Pulse Oximetry 86 L 91 94 Oxygen Delivery Nasal Cannula Nasal Cannula Oxygen Flow Rate 6 6 12/12/23 15:41 12/12/23 15:41 12/12/23 15:48 Temperature Pulse Rate 94 91 Respiratory Rate 15 Blood Pressure 143/68 H Pulse Oximetry 95 97 Oxygen Delivery Nasal Cannula Oxygen Flow Rate 6 12/12/23 16:51 12/12/23 17:00 12/12/23 17:32 Temperature Pulse Rate 93 95 95 Respiratory Rate 20 20 25 H Blood Pressure 124/68 Pulse Oximetry 93 Oxygen Delivery Oxygen Flow Rate 12/12/23 18:20 12/12/23 20:46 Temperature 97.6 F 98.5 F Pulse Rate 94 100 Respiratory Rate 21 H 16 Blood Pressure 129/71 131/68 Pulse Oximetry 96 97 Oxygen Delivery Oxygen Flow Rate Exam Narrative: Weight 90.7 kg BMI 35.4 Const: Other: Obese, no acute distress sitting in a chair beside the bed HENMT: Other: Crowded posterior oropharynx mucous membranes are moist, no oral pharyngeal erythema Eyes: Other: Pupils are equal and reactive, no scleral icterus, no conjunctival pallor Neck: Other: Large neck circumference, no JVD, supple Resp: Other: Markedly decreased breath sounds bilaterally with anterior and posterior costello, no increased work of breathing Cardio: Other: Regular rate, regular rhythm, 2+ bilateral radial pulses, 2+ left pedal pulse 1 +right pedal pulse GI: Other: Obese, soft, normoactive bowel sounds exam limited due to patient's position Skin: Other: No jaundice, no pallor Neuro: Other: Alert oriented, speech is clear, no facial asymmetry, normal gait Extrem: Other: No cyanosis, no pitting edema Psych: Other: Appropriate mood and affect, pleasant and cooperative, judgment and insight intact H&P: Results Labs Labs: Laboratory Tests 12/12/23 15:51 12/12/23 15:51 12/12/23 12/12/23 12/12/23 15:51 17:58 20:41 WBC 12.0 H RBC 4.35 Hgb 12.1 Hct 40.0 MCV 92.0 MCH 27.8 MCHC 30.3 L RDW 13.6 Plt Count 494 H MPV 8.5 Immature Gran % (Auto) 0.4 Neut % (Auto) 73.2 H Lymph % (Auto) 16.7 L [place] % (Auto) 7.7 Eos % (Auto) 1.7 Baso % (Auto) 0.3 Lymph # (Auto) 2.01 [place] # (Auto) 0.9 H Eos # (Auto) 0.2 Baso # (Auto) 0.0 Abs Immat Gran (auto) 0.05 H Absolute Neuts (auto) 8.8 H Absolute Nucleated RBC 0.000 Nucleated RBC % 0.0 Puncture Site Right brachial ABG pH 7.460 H ABG pCO2 66.8 H* ABG pO2 57.8 L ABG PO2/FiO2 Ratio 1.44 ABG HCO3 46.4 H ABG O2 Saturation 90.3 L ABG O2 Content 15.6 L ABG Base Excess 19.1 A-a Gradient 150.6 Oxyhemoglobin 88.1 L Total Hemoglobin 12.6 O2 Delivery Device Nasal cannula O2 Liters/Min 5.0 FiO2 40 Sodium 137 Potassium 2.6 L* Chloride 85 L Carbon Dioxide > 40 H Anion Gap BUN 13 D Creatinine 0.70 Estim Creat Clear Calc 76 Estimated GFR > 60 Glucose 123 H POC Capillary Glucose 203 H Calcium 9.0 Magnesium 1.1 L Total Bilirubin 0.4 AST 20 ALT 13 Alkaline Phosphatase 80 Total Protein 7.0 Albumin 4.0 Impressions Chest X-Ray 12/12/23 16:07 (personally reviewed) Impression: Clear lungs. EKG: Personally reviewed and interpreted. Cardiology interpretation fatigue. Normal sinus rhythm nonspecific T-wave abnormality normal QTC Assessment and Plan Assessment and plan (1) COPD exacerbation: Code(s): J44.1 - Chronic obstructive pulmonary disease with (acute) exacerbation Status: Acute (2) Acute on chronic respiratory failure with hypoxia and hypercapnia: Code(s): J96.21 - Acute and chronic respiratory failure with hypoxia; J96.22 - Acute and chronic respiratory failure with hypercapnia Status: Acute (3) Type 2 diabetes mellitus: Qualifiers: Diabetes mellitus complication detail: with polyneuropathy Diabetes mellitus complication status: with neurologic complications 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 Will place patient on scheduled nebulizers and IV steroids. Will continue home long-acting steroid inhaler with trilogy. The patient is no longer taking budesonide at home. This will need to be removed from med rec. Will wean oxygen as tolerated back down to her home level of 4 L nasal cannula. Patient has acute hypokalemia repeat potassium level is been were for a.m.. Patient also had acute hypo magnesemia. A per the replace the patient's magnesium level. Will repeat level in a.m.. Patient has type 2 diabetes mellitus in glucoses have been higher in the last couple of days. Will place patient on moderate dose sliding scale insulin with Accu-Cheks a.c. HS and will continue home oral hypoglycemic agents. Hypoglycemia protocol has been ordered. Quality VTE Prophylaxis VTE prophylaxis: pharmacologic ordered (Lovenox 40 mg subQ daily.)
[2023-12-13] VITALS (25 sets, daily range): BP systolic 118–145; BP diastolic 59–69; PULSE 84–113; RESP 16–22; TEMP 36.2–36.8; O2SAT 86–96
[2023-12-13] MEDS: methylPREDNISolone SOD SUCC 125 MG VIAL 60 MG IV PUSH ×4 (00:36→17:06)
[2023-12-13 00:44] LABS: Glucose Point of Care 165 mg/dl (65-105)
[2023-12-13] MEDS: MAGNESIUM SULF 4 GM/WATER100ML 4 GM/100 ML BAG IVPB (02:12)
[2023-12-13] MEDS: GABAPENTIN 300 MG CAPSULE 600 MG PO ×2 (02:13→21:57)
[2023-12-13] MEDS: IPRATROPIUM BR 0.02% INH SOLN 0.5 MG/2.5 ML VIAL INHALATION ×2 (02:17→08:28)
[2023-12-13] MEDS: ALBUTEROL SULFATE NEB 2.5 MG/3 ML INH 5 MG INHALATION ×2 (02:17→08:27)
[2023-12-13] MEDS: THEOPHYLLINE ANHYDROUS 200 MG ER 24 HR CAPSULE 400 MG PO ×2 (02:17→21:57)
[2023-12-13 05:45] LABS: Basophils Percent Auto 0.2 % (0.2-1.2); Hematocrit 40.1 % (37.0-47.0); Hemoglobin 11.9 g/dL (12.0-15.0); Immature Granulocyte Absolute 0.06 K/mm3 (0.00-0.031); Immature Granulocyte Percent A 0.6 % (0-0.5); Lymphocytes Absolute Auto 0.65 K/mm3 (0.9-3.2); Lymphocytes Percent Auto 6.4 % (18.3-44.2); Mean Corpuscular HGB Conc 29.7 g/dl (32-36); Mean Corpuscular Hemoglobin 27.7 pg (26-34); Mean Corpuscular Volume 93.5 fl (80-100); Mean Platelet Volume 8.6 fl (7.4-10.4); Monocytes Absolute Auto 0.1 K/mm3 (0.1-0.6); Monocytes Percent Auto 0.5 % (2.6-8.5); Neutrophils Absolute Auto 9.4 K/mm3 (1.3-6.7); Neutrophils Percent Auto 92.3 % (45.5-73.1); Platelet Count Result 492 k/mm3 (150-375); Red Blood Count 4.29 M/mm3 (4.2-5.4); Red Cell Distribution Width 13.7 % (11.5-14.5); White Blood Count 10.2 K/mm3 (4.5-10.0)
[2023-12-13 06:02] LABS: Blood Urea Nitrogen 14 mg/dL (7-17); Calcium 8.9 mg/dL (8.4-10.2); Carbon Dioxide > 40 mmol/L (22-30); Chloride 90 mmol/L (98-107); Estimated CRCL calculation 87 ml/min; Estimated Glomerular Filt Rate > 60; Glucose 158 mg/dL (65-110); Magnesium 2.5 mg/dL (1.6-2.3); Potassium 3.6 mmol/L (3.4-5.0); Sodium 138 mmol/L (137-145)
[2023-12-13 06:34] LABS: Platelet Estimate Increased (Adequate); Stomatocytes 1+
[2023-12-13 06:35] LABS: Anisocytosis 1+; Hypochromasia 2+; Schistocytes None Seen
[2023-12-13 08:24] LABS: Glucose Point of Care 150 mg/dl (65-105)
[2023-12-13] MEDS: FLUTICASONE/UMECLIDIN/VILANTER 100-62.5-25 MCG ELLIPTA 1 PUFF INHALATION (08:28)
[2023-12-13 08:59] LABS: Glucose Point of Care 146 mg/dl (65-105)
[2023-12-13] MEDS: THERAPEUTIC MULTIVITAMINS/MINERALS TAB (*BKC) 1 TABLET PO (09:18)
[2023-12-13] MEDS: ASPIRIN 81 MG CHEWABLE TABLET PO (09:20)
[2023-12-13] MEDS: EMPAGLIFLOZIN 25 MG TABLET PO (09:21)
[2023-12-13] MEDS: ATORVASTATIN 40 MG TABLET PO (09:21)
[2023-12-13] MEDS: METOPROLOL SUCCINATE EXT REL 25 MG TABCR PO (09:23)
[2023-12-13] MEDS: LOSARTAN POTASSIUM 100 MG TABLET PO (09:23)
[2023-12-13] MEDS: CLOPIDOGREL BISULFATE 75 MG TABLET PO (09:25)
[2023-12-13] MEDS: MONTELUKAST SODIUM 10 MG TABLET PO (09:27)
[2023-12-13] MEDS: PANTOPRAZOLE 40 MG TABLET PO (09:27)
[2023-12-13] MEDS: guaiFENesin 12 HR 600 MG TABCR PO ×2 (09:28→21:57)
[2023-12-13] MEDS: hydroCHLOROthiazide 25 MG TABLET PO (09:28)
[2023-12-13] MEDS: ENOXAPARIN 40 MG/0.4 ML SYRINGE SUB-Q (09:33)
--- NOTE | 2023-12-13 11:26 | PM.IMPN ---
Progress Note: A&P Assessment and Plan (1) COPD exacerbation: Code(s): J44.1 - Chronic obstructive pulmonary disease with (acute) exacerbation Status: Acute Assessment and Plan: Significant COPD exacerbation. IV steroids q.6. DuoNeb increased frequency to q.4 hours. Patient is on theophylline as a home medication. Continue supplemental oxygen, may require BiPAP. (2) Acute on chronic respiratory failure with hypoxia and hypercapnia: Code(s): J96.21 - Acute and chronic respiratory failure with hypoxia; J96.22 - Acute and chronic respiratory failure with hypercapnia Status: Acute Assessment and Plan: Increased oxygen demand patient now utilizing 6 liters/minute saturating 88-91%. PCO2 66 on initial ABG. (3) Type 2 diabetes mellitus: Qualifiers: Diabetes mellitus salvage determiner insulin use: without [facility] use Diabetes mellitus complication status: with neurologic complications Diabetes mellitus complication detail: with polyneuropathy Qualified Code(s): E11.42 - Type 2 diabetes mellitus with diabetic polyneuropathy Code(s): E11.9 - Type 2 diabetes mellitus without complications Status: Acute Assessment and Plan: Fingerstick glucose ACHS with sliding scale insulin. Expect this to rise due to frequent IV steroids. (4) Acute hypokalemia: Code(s): E87.6 - Hypokalemia Status: Acute Assessment and Plan: Potassium initially 2.6 arrival was given replacement 3.6 on morning labs today. (5) Hypomagnesemia: Code(s): E83.42 - Hypomagnesemia Status: Acute Assessment and Plan: Initial magnesium initial magnesium 1.1. Four grams replacement given on admit, level now 2 5. Time Spent With Patient Time with patient: Greater than 35 minutes Subjective Date/time seen: 12/13/23 11:26 Interval history: This is a 63-year-old female patient with history of COPD on home oxygen of 4 liters/minute presented to the emergency department with increased oxygen demand difficulty breathing wheezing. Patient was admitted stated that she was starting to feel better and then suddenly her wheezing and difficulty breathing got worse again. She is getting q.6 hour IV steroids, we will increase DuoNebs to q.4 hours. Patient already had magnesium replacement and subsequent slightly elevated magnesium level or I would have given rapid infusion IV magnesium. Review of Systems Review of Systems: All systems reviewed & are unremarkable except as noted in HPI and below Exam Narrative: Weight 90.7 kg BMI 35.4 Const: Other: Obese, mild respiratory distress lying in bed just after awakening from a nap HENMT: Other: Crowded posterior oropharynx mucous membranes are moist, no oral pharyngeal erythema Eyes: Other: Pupils are equal and reactive, no scleral icterus, no conjunctival pallor Neck: Other: Large neck circumference, no JVD, supple Resp: Other: Markedly decreased breath sounds bilaterally with anterior and posterior costello, mild increased work of breathing, significant expiratory wheeze audible without the use of stethoscope Cardio: Other: Regular rate, regular rhythm, 2+ bilateral radial pulses, 2+ left pedal pulse 1 +right pedal pulse GI: Other: Obese, soft, normoactive bowel sounds Skin: Other: No jaundice, no pallor Neuro: Other: Alert oriented, speech is clear, no facial asymmetry, gait deferred Extrem: Other: No cyanosis, no pitting edema Psych: Other: Appropriate mood and affect, pleasant and cooperative, judgment and insight intact Objective Data Vital Signs Vital Signs: Vital Signs - 24 hr 12/12/23 15:23 12/12/23 15:30 12/12/23 15:40 Temperature 36.3 C L Pulse Rate 100 Respiratory Rate 22 H Blood Pressure 125/63 Pulse Oximetry 86 L 91 94 Oxygen Delivery Nasal Cannula Nasal Cannula Oxygen Flow Rate 6 6 12/12/23 15:41 12/12/23 15:41 12/12/23 15:48 Temperature Pulse Rate 94 91 Respiratory Rate 15 Blood Pressure 143/68 H Pulse Oximetry 95 97 Oxygen Delivery Nasal Cannula Oxygen Flow Rate 6 12/12/23 16:51 12/12/23 17:00 12/12/23 17:32 Temperature Pulse Rate 93 95 95 Respiratory Rate 20 20 25 H Blood Pressure 124/68 Pulse Oximetry 93 Oxygen Delivery Oxygen Flow Rate 12/12/23 18:20 12/12/23 20:46 12/12/23 20:00 Temperature 36.4 C 36.9 C Pulse Rate 94 100 107 H Respiratory Rate 21 H 16 Blood Pressure 129/71 131/68 Pulse Oximetry 96 97 Oxygen Delivery Oxygen Flow Rate 12/13/23 02:18 12/13/23 02:22 12/13/23 02:29 Temperature Pulse Rate 100 102 H Respiratory Rate 18 18 Blood Pressure Pulse Oximetry 93 Oxygen Delivery Nasal Cannula Oxygen Flow Rate 5 12/13/23 00:00 12/12/23 20:00 12/13/23 04:00 Temperature Pulse Rate 97 85 Respiratory Rate Blood Pressure Pulse Oximetry 97 Oxygen Delivery Nasal Cannula Oxygen Flow Rate 6 12/13/23 04:30 12/13/23 08:25 12/13/23 08:31 Temperature 36.5 C 36.6 C Pulse Rate 98 95 Respiratory Rate 16 18 Blood Pressure 123/59 L 145/69 H Pulse Oximetry 92 88 L 89 L Oxygen Delivery Nasal Cannula Oxygen Flow Rate 6 12/13/23 08:31 12/13/23 08:45 12/13/23 08:05 Temperature Pulse Rate 99 100 92 Respiratory Rate 20 20 Blood Pressure Pulse Oximetry Oxygen Delivery Oxygen Flow Rate 12/13/23 08:05 12/13/23 09:23 Temperature Pulse Rate 95 Respiratory Rate Blood Pressure Pulse Oximetry 90 Oxygen Delivery Nasal Cannula Oxygen Flow Rate 5 Intake/Output Intake/Output: Intake & Output 12/10/23 12/11/23 12/12/23 12/13/23 23:59 23:59 23:59 23:59 Intake Total 520 800 Balance 520 800 Meds/Results Medications: Active Medications Generic Name Dose Route Start Last Admin Trade Name Freq PRN Reason Stop Dose Admin Acetaminophen 650 mg 12/12/23 17:56 Acetaminophen 325 Mg Tablet PO Q4H PRN Mild Pain (1-3) or Fever Albuterol/Ipratropium 3 ml 12/13/23 12:00 Ipratropium 0.5 Mg/Albuterol Sulfate 2.5 Mg Ampul.Neb 3 Ml INHALATION Q4HRT [facility] Aspirin 81 mg 12/13/23 09:00 12/13/23 09:20 Aspirin 81 Mg Chewable Tablet PO 81 mg DAILY JAIRO Administration Atorvastatin Calcium 40 mg 12/13/23 09:00 12/13/23 09:21 Atorvastatin 40 Mg Tablet PO 40 mg DAILY JAIRO Administration Benzocaine 1 lozenge 12/12/23 23:33 Benzocaine/Menthol (*Bkc) 18 Ea Lozenge PO PRN PRN Sore Throat Clopidogrel Bisulfate 75 mg 12/13/23 09:00 12/13/23 09:25 Clopidogrel Bisulfate 75 Mg Tablet PO 75 mg DAILY JAIRO Administration Dextrose 12.5 gm 12/12/23 22:11 Dextrose 50% 25 Gm/50 Ml Syringe IV PUSH PRN PRN Hypoglycemia Protocol Empagliflozin 25 mg 12/13/23 09:00 12/13/23 09:21 Empagliflozin 25 Mg Tablet PO 25 mg DAILY JAIRO Administration Enoxaparin Sodium 40 mg 12/13/23 09:00 12/13/23 09:33 Enoxaparin 40 Mg/0.4 Ml Syringe SUB-Q 40 mg DAILY JAIRO Administration Fluticasone/Umeclidinium/Vilanterol 1 puff 12/13/23 08:00 12/13/23 08:28 Fluticasone/Umeclidin/Vilanter 100-62.5-25 Mcg Ellipta INHALATION 1 puff DAILYRT JAIRO Administration Gabapentin 600 mg 12/13/23 02:00 12/13/23 02:13 Gabapentin 300 Mg Capsule PO 600 mg HS JAIRO Administration Glucagon 1 mg 12/12/23 22:11 Glucagon For Inj 1 Mg Vial IM PRN PRN Hypoglycemia Protocol Glucose 15 gm 12/12/23 22:11 Glucose Oral Gel 15 Gm Of Glucse In 37.5 Gm Tube PO PRN PRN Hypoglycemia Protocol Guaifenesin 600 mg 12/13/23 09:00 12/13/23 09:28 Guaifenesin 12 Hr 600 Mg Tabcr PO 600 mg Q12HR JAIRO Administration Hydrochlorothiazide 25 mg 12/13/23 09:00 12/13/23 09:28 Hydrochlorothiazide 25 Mg Tablet PO 25 mg QAM JAIRO Administration Sodium Chloride 1,000 mls @ 50 mls/hr 12/12/23 17:31 12/12/23 17:31 Normal Saline Iv IV CONT 12/13/23 13:30 50 mls/hr .Q20H STA Administration Dextrose 1,000 mls @ 100 mls/hr 12/12/23 22:11 Dextrose 5% 1,000 Ml IVPB PRN PRN Hypoglycemia Protocol Insulin Aspart 1 - 3 units 12/13/23 21:00 Insulin Aspart (*Bkc) 100 Units/Ml SUB-Q HS JAIRO Protocol Insulin Aspart 3 - 6 units 12/13/23 08:00 12/13/23 08:33 Insulin Aspart (*Bkc) 100 Units/Ml SUB-Q Not Given TIDWM JAIRO Protocol Losartan Potassium 100 mg 12/13/23 09:00 12/13/23 09:23 Losartan Potassium 100 Mg Tablet PO 100 mg DAILY JAIRO Administration Methylprednisolone Sodium Succinate 60 mg 12/13/23 00:00 12/13/23 06:16 Methylprednisolone Sod Succ 125 Mg Vial IV PUSH 60 mg Q6HR JAIRO Administration Metoprolol Succinate 25 mg 12/13/23 09:00 12/13/23 09:23 Metoprolol Succinate Ext Rel 25 Mg Tabcr PO 25 mg DAILY JAIRO Administration Montelukast Sodium 10 mg 12/13/23 09:00 12/13/23 09:27 Montelukast Sodium 10 Mg Tablet PO 10 mg DAILY JAIRO Administration Morphine Sulfate 2 mg 12/12/23 17:56 Morphine Sulfate (*Crx) 2 Mg/Ml Inj IV PUSH Q2H PRN Pain Rated 7-10 Multivitamins/Calcium 1 tablet 12/13/23 09:00 12/13/23 09:18 Therapeutic Multivitamins/Minerals Tab (*Bkc) PO 1 tablet DAILY JAIRO Administration Ondansetron HCl 4 mg 12/12/23 17:56 Ondansetron Inj 4 Mg/2 Ml Vial IV PUSH Q4H PRN Nausea Pantoprazole Sodium 40 mg 12/13/23 09:00 12/13/23 09:27 Pantoprazole 40 Mg Tablet PO 40 mg QAM JAIRO Administration Theophylline 400 mg 12/13/23 02:00 12/13/23 02:17 Theophylline Anhydrous 200 Mg Er 24 Hr Capsule PO 400 mg HS JAIRO Administration Radiology Results: ITS Impressions Chest X-Ray 12/12/23 16:07 Impression: Clear lungs. Labs Labs: Laboratory Results - last 24 hr 12/12/23 12/12/23 12/12/23 15:51 17:58 20:41 WBC 12.0 H RBC 4.35 Hgb 12.1 Hct 40.0 MCV 92.0 MCH 27.8 MCHC 30.3 L RDW 13.6 Plt Count 494 H MPV 8.5 Immature Gran % (Auto) 0.4 Neut % (Auto) 73.2 H Lymph % (Auto) 16.7 L [place] % (Auto) 7.7 Eos % (Auto) 1.7 Baso % (Auto) 0.3 Lymph # (Auto) 2.01 [place] # (Auto) 0.9 H Eos # (Auto) 0.2 Baso # (Auto) 0.0 Abs Immat Gran (auto) 0.05 H Absolute Neuts (auto) 8.8 H Absolute Nucleated RBC 0.000 Nucleated RBC % 0.0 Platelet Estimate Hypochromasia Anisocytosis Stomatocytes Schistocytes Puncture Site Right brachial ABG pH 7.460 H ABG pCO2 66.8 H* ABG pO2 57.8 L ABG PO2/FiO2 Ratio 1.44 ABG HCO3 46.4 H ABG O2 Saturation 90.3 L ABG O2 Content 15.6 L ABG Base Excess 19.1 A-a Gradient 150.6 Oxyhemoglobin 88.1 L Total Hemoglobin 12.6 O2 Delivery Device Nasal cannula O2 Liters/Min 5.0 FiO2 40 Sodium 137 Potassium 2.6 L* Chloride 85 L Carbon Dioxide > 40 H Anion Gap BUN 13 D Creatinine 0.70 Estim Creat Clear Calc 76 Estimated GFR > 60 Glucose 123 H POC Capillary Glucose 203 H Calcium 9.0 Magnesium 1.1 L Total Bilirubin 0.4 AST 20 ALT 13 Alkaline Phosphatase 80 Total Protein 7.0 Albumin 4.0 12/13/23 12/13/23 12/13/23 00:40 05:31 08:17 WBC 10.2 H RBC 4.29 Hgb 11.9 L Hct 40.1 MCV 93.5 MCH 27.7 MCHC 29.7 L RDW 13.7 Plt Count 492 H MPV 8.6 Immature Gran % (Auto) 0.6 H Neut % (Auto) 92.3 H Lymph % (Auto) 6.4 L [place] % (Auto) 0.5 L Eos % (Auto) 0.0 Baso % (Auto) 0.2 Lymph # (Auto) 0.65 L [place] # (Auto) 0.1 Eos # (Auto) 0.0 Baso # (Auto) 0.0 Abs Immat Gran (auto) 0.06 H Absolute Neuts (auto) 9.4 H Absolute Nucleated RBC 0.000 Nucleated RBC % 0.0 Platelet Estimate Increased Hypochromasia 2+ Anisocytosis 1+ Stomatocytes 1+ Schistocytes None seen Puncture Site ABG pH ABG pCO2 ABG pO2 ABG PO2/FiO2 Ratio ABG HCO3 ABG O2 Saturation ABG O2 Content ABG Base Excess A-a Gradient Oxyhemoglobin Total Hemoglobin O2 Delivery Device O2 Liters/Min FiO2 Sodium 138 Potassium 3.6 Chloride 90 L Carbon Dioxide > 40 H Anion Gap BUN 14 Creatinine 0.60 L Estim Creat Clear Calc 87 Estimated GFR > 60 Glucose 158 H POC Capillary Glucose 165 H 150 H Calcium 8.9 Magnesium 2.5 H Total Bilirubin AST ALT Alkaline Phosphatase Total Protein Albumin 12/13/23 08:31 WBC RBC Hgb Hct MCV MCH MCHC RDW Plt Count MPV Immature Gran % (Auto) Neut % (Auto) Lymph % (Auto) [place] % (Auto) Eos % (Auto) Baso % (Auto) Lymph # (Auto) [place] # (Auto) Eos # (Auto) Baso # (Auto) Abs Immat Gran (auto) Absolute Neuts (auto) Absolute Nucleated RBC Nucleated RBC % Platelet Estimate Hypochromasia Anisocytosis Stomatocytes Schistocytes Puncture Site ABG pH ABG pCO2 ABG pO2 ABG PO2/FiO2 Ratio ABG HCO3 ABG O2 Saturation ABG O2 Content ABG Base Excess A-a Gradient Oxyhemoglobin Total Hemoglobin O2 Delivery Device O2 Liters/Min FiO2 Sodium Potassium Chloride Carbon Dioxide Anion Gap BUN Creatinine Estim Creat Clear Calc Estimated GFR Glucose POC Capillary Glucose 146 H Calcium Magnesium Total Bilirubin AST ALT Alkaline Phosphatase Total Protein Albumin Pulse Oximetry SpO2 results: 88-91% on 6 liters/minute nasal cannula Attestation: I personally reviewed and interpreted this pulse oximetry as follows: Interpretation: Patient continues to require increased oxygen Quality VTE Prophylaxis VTE prophylaxis: pharmacologic ordered (Lovenox 40 mg subQ daily.)
[2023-12-13] MEDS: IPRATROPIUM 0.5 MG/ALBUTEROL SULFATE 2.5 MG AMPUL.NEB 3 ML INHALATION ×4 (11:35→23:15)
[2023-12-13 12:08] LABS: Glucose Point of Care 202 mg/dl (65-105)
[2023-12-13] MEDS: INSULIN ASPART (*BKC) 100 UNITS/ML SUB-Q ×2 (12:13→21:57)
[2023-12-13 12:17] LABS: Glucose Point of Care 227 mg/dl (65-105)
[2023-12-13 12:47] LABS: Influenza A QL RT-PCR Negative (Negative); Influenza B QL RT-PCR Negative (Negative); RSV RNA, RT-PCR Negative (Negative); SARS-CoV-2 RNA PCR Negative (Negative)
--- NOTE | 2023-12-13 13:57 | PCCCNOTE ---
On 12/13/23, the student, Britney Harrell, provided care and completed [facility] documentation on this patient. I have reviewed the student's documentation and agree with the findings.
[2023-12-13 17:26] LABS: Glucose Point of Care 191 mg/dl (65-105)
[2023-12-13 20:43] LABS: Glucose Point of Care 208 mg/dl (65-105)
[2023-12-14] VITALS (24 sets, daily range): BP systolic 107–120; BP diastolic 53–88; PULSE 82–110; RESP 20–24; TEMP 36.4–36.7; O2SAT 90–99
[2023-12-14] MEDS: methylPREDNISolone SOD SUCC 125 MG VIAL 60 MG IV PUSH ×5 (00:11→23:13)
[2023-12-14] MEDS: IPRATROPIUM 0.5 MG/ALBUTEROL SULFATE 2.5 MG AMPUL.NEB 3 ML INHALATION ×6 (04:15→23:30)
[2023-12-14 05:21] LABS: Basophils Percent Auto 0.1 % (0.2-1.2); Eosinophils Percent Auto 0.1 % (0-4.4); Hematocrit 39.5 % (37.0-47.0); Hemoglobin 11.7 g/dL (12.0-15.0); Immature Granulocyte Absolute 0.13 K/mm3 (0.00-0.031); Immature Granulocyte Percent A 0.8 % (0-0.5); Lymphocytes Absolute Auto 0.63 K/mm3 (0.9-3.2); Lymphocytes Percent Auto 4.1 % (18.3-44.2); Mean Corpuscular HGB Conc 29.6 g/dl (32-36); Mean Corpuscular Hemoglobin 27.8 pg (26-34); Mean Corpuscular Volume 93.8 fl (80-100); Mean Platelet Volume 8.5 fl (7.4-10.4); Monocytes Absolute Auto 0.4 K/mm3 (0.1-0.6); Monocytes Percent Auto 2.5 % (2.6-8.5); Neutrophils Absolute Auto 14.2 K/mm3 (1.3-6.7); Neutrophils Percent Auto 92.4 % (45.5-73.1); Platelet Count Result 550 k/mm3 (150-375); Red Blood Count 4.21 M/mm3 (4.2-5.4); Red Cell Distribution Width 13.5 % (11.5-14.5); White Blood Count 15.4 K/mm3 (4.5-10.0)
[2023-12-14 05:36] LABS: Alanine Aminotransferase 15 U/L (6-35); Albumin Level 3.8 g/dL (3.5-5.1); Alkaline Phosphatase 74 U/L (38-126); Aspartate Amino Transferase 20 U/L (14-36); Bilirubin,Total 0.3 mg/dL (0.2-1.3); Blood Urea Nitrogen 21 mg/dL (7-17); Calcium 9.1 mg/dL (8.4-10.2); Carbon Dioxide > 40 mmol/L (22-30); Chloride 89 mmol/L (98-107); Estimated CRCL calculation 67 ml/min; Estimated Glomerular Filt Rate > 60; Glucose 175 mg/dL (65-110); Magnesium 2.2 mg/dL (1.6-2.3); Sodium 137 mmol/L (137-145)
[2023-12-14 06:05] LABS: Hypochromasia 1+; Platelet Estimate Increased (Adequate)
[2023-12-14 06:06] LABS: Schistocytes None Seen; Stomatocytes 1+
--- NOTE | 2023-12-14 07:14 | PM.IMPN ---
Progress Note: A&P Assessment and Plan (1) COPD exacerbation: Code(s): J44.1 - Chronic obstructive pulmonary disease with (acute) exacerbation Status: Acute Assessment and Plan: Significant COPD exacerbation. IV steroids q.6. DuoNeb increased frequency to q.4 hours. Patient is on theophylline as a home medication. Continue supplemental oxygen, may require BiPAP. 4/3: Improvement with breathing after addition of steroids and increase neb frequency Still on 6 L nasal cannula Will repeat a home O2 walking study at discharge. Discussed with her she may have increased oxygen requirements during the interim of her infection. Added guaifenesin b.i.d. (2) Acute on chronic respiratory failure with hypoxia and hypercapnia: Code(s): J96.21 - Acute and chronic respiratory failure with hypoxia; J96.22 - Acute and chronic respiratory failure with hypercapnia Status: Acute Assessment and Plan: Increased oxygen demand patient now utilizing 6 liters/minute saturating 88-91%. PCO2 66 on initial ABG. (3) Type 2 diabetes mellitus: Qualifiers: Diabetes mellitus complication detail: with polyneuropathy Diabetes mellitus complication status: with neurologic complications Diabetes mellitus terminal superintendent insulin use: without prison use Qualified Code(s): E11.42 - Type 2 diabetes mellitus with diabetic polyneuropathy Code(s): E11.9 - Type 2 diabetes mellitus without complications Status: Acute Assessment and Plan: Fingerstick glucose ACHS with sliding scale insulin. Expect this to rise due to frequent IV steroids. 4/3: Blood glucose ranging 190-201 Continue with SSI moderate dosing Accu-Cheks and hypoglycemia protocol (4) Acute hypokalemia: Code(s): E87.6 - Hypokalemia Status: Acute Assessment and Plan: Potassium initially 2.6 arrival was given replacement 3.6 on morning labs today. 3: Labs reviewed potassium is 4.0 today (5) Hypomagnesemia: Code(s): E83.42 - Hypomagnesemia Status: Acute Assessment and Plan: Initial magnesium initial magnesium 1.1. Four grams replacement given on admit, level now 2 5. 4/3: Reviewed, Mag 2.2 Plan Feeding: Diabetic diet Analgesia: Tylenol Thromboembolic prophylaxis: Lovenox Ulcer prophylaxis: Ppi Glycemic control: Moderate doses SSI Bowel regimen: Lines: Antibiotics: Disposition: DC home potentially tomorrow Subjective Date/time seen: 12/14/23 07:14 Interval history: HPI obtained from the chart, 63-year-old female with MS medical history chronic hypercapnic hypoxic respiratory failure, continued tobacco abuse, COPD, severe obstructive sleep apnea intolerant to CPAP, peripheral artery disease, essential hypertension and 2 diabetes among other comorbidities who presented to the hospital from home after 2.5 weeks of shortness of breath.? Patient reports that she has had a largely nonproductive cough the cough has been worsening. Please see remainder of the H&P for further details. Interval history: 12/14/23: Patient seen resting in the chair, she is in no acute distress. She is able to speak in full sentences. She states that her breathing has improved today but is not yet back to her baseline. Her wheezing has resolved with addition of steroids. She is not yet back to her home O2 settings. She does have a strong cough but it is nonproductive. She feels congested and feels like she needs to cough something up. She is also concerned that she has a yeast infection. She states she gets these frequently and is asking for fluconazole. Review of Systems Review of Systems: All systems reviewed & are unremarkable except as noted in HPI and below Exam Narrative: General: well developed, well nourished, appears stated age. HEENT: normocephalic, atraumatic. Mucous membranes moist. EOMI, PERRLA, bilateral sclera anicteric, no conjunctival injection. Neck supple without JVD, lymphadenopathy, or bruit. Respiratory: clear to auscultation bilaterally. No rales/rhonic/wheezes. Cardiovascular: Regular rate and rhythm, normal S1-S2 upon auscultation. No murmurs, rubs, or clicks. PMI is nondisplaced, capillary re-fill less than 3 second. Abdomen: Soft, round, no pulsatile masses, non-distended and non-tender. No rebound, no guarding. No CVA tenderness, no hepatosplenomegaly. Bowel sounds present to all four quadrants. No high pitch or tinkling sounds, resonant to percussion. Extremities: No cyanosis, clubbing, or edema present. Pulses are palpable 2/2. Active ROM to all four extremities. Neuro: Alert and orientated x 4. PERRLA. Cranial nerves 2-12 intact without focal deficit. Skin: Warm, dry, and intact, without rash, erythema, or lesion. Lines: Incisions: Psych: pleasant, cooperative, normal speech, normal affect, no hallucinations, no dysarthria Objective Data Vital Signs Vital Signs: Vital Signs - 24 hr 12/13/23 08:25 12/13/23 08:31 12/13/23 08:31 Temperature 97.8 F Pulse Rate 95 99 Respiratory Rate 18 20 Blood Pressure 145/69 H Pulse Oximetry 88 L 89 L Oxygen Delivery Nasal Cannula Oxygen Flow Rate 6 12/13/23 08:45 12/13/23 08:05 12/13/23 08:05 Temperature Pulse Rate 100 92 Respiratory Rate 20 Blood Pressure Pulse Oximetry 90 Oxygen Delivery Nasal Cannula Oxygen Flow Rate 5 12/13/23 09:23 12/13/23 11:37 12/13/23 11:37 Temperature Pulse Rate 95 96 Respiratory Rate 20 Blood Pressure Pulse Oximetry 91 Oxygen Delivery Nasal Cannula Oxygen Flow Rate 6 12/13/23 11:46 12/13/23 12:20 12/13/23 12:00 Temperature 98.3 F Pulse Rate 98 113 H 113 H Respiratory Rate 20 22 H Blood Pressure 134/67 Pulse Oximetry 87 L Oxygen Delivery Oxygen Flow Rate 12/13/23 15:06 12/13/23 15:23 12/13/23 15:23 Temperature 97.6 F Pulse Rate 94 94 Respiratory Rate 18 20 Blood Pressure 118/68 Pulse Oximetry 86 L 90 Oxygen Delivery Nasal Cannula Oxygen Flow Rate 5 12/13/23 15:32 12/13/23 16:00 12/13/23 19:31 Temperature Pulse Rate 84 90 92 Respiratory Rate 20 21 H Blood Pressure Pulse Oximetry Oxygen Delivery Oxygen Flow Rate 12/13/23 19:32 12/13/23 20:00 12/13/23 20:52 Temperature 97.1 F L Pulse Rate 89 97 Respiratory Rate 22 H 20 Blood Pressure 130/61 Pulse Oximetry 91 96 Oxygen Delivery Nasal Cannula Oxygen Flow Rate 5 12/13/23 23:15 12/13/23 23:30 12/13/23 21:55 Temperature Pulse Rate 95 93 Respiratory Rate 20 20 Blood Pressure Pulse Oximetry Oxygen Delivery Nasal Cannula Oxygen Flow Rate 5 12/13/23 20:00 12/14/23 00:00 12/14/23 04:00 Temperature Pulse Rate 107 H 91 110 H Respiratory Rate Blood Pressure Pulse Oximetry Oxygen Delivery Oxygen Flow Rate 12/14/23 04:16 12/14/23 04:35 12/14/23 06:00 Temperature 97.6 F Pulse Rate 89 90 84 Respiratory Rate 20 20 20 Blood Pressure 107/60 Pulse Oximetry 99 Oxygen Delivery Oxygen Flow Rate Intake/Output Intake/Output: Intake & Output 12/11/23 12/12/23 12/13/23 12/14/23 23:59 23:59 23:59 23:59 Intake Total 520 2380 200 Output Total 1300 Balance 520 1080 200 Meds/Results Medications: Active Medications Generic Name Dose Route Start Last Admin Trade Name Freq PRN Reason Stop Dose Admin Acetaminophen 650 mg 12/12/23 17:56 Acetaminophen 325 Mg Tablet PO Q4H PRN Mild Pain (1-3) or Fever Albuterol/Ipratropium 3 ml 12/13/23 12:00 12/14/23 04:15 Ipratropium 0.5 Mg/Albuterol Sulfate 2.5 Mg Ampul.Neb 3 Ml INHALATION 3 ml Q4HRT JAIRO Administration Aspirin 81 mg 12/13/23 09:00 12/13/23 09:20 Aspirin 81 Mg Chewable Tablet PO 81 mg DAILY JAIRO Administration Atorvastatin Calcium 40 mg 12/13/23 09:00 12/13/23 09:21 Atorvastatin 40 Mg Tablet PO 40 mg DAILY JAIRO Administration Benzocaine 1 lozenge 12/12/23 23:33 Benzocaine/Menthol (*Bkc) 18 Ea Lozenge PO PRN PRN Sore Throat Clopidogrel Bisulfate 75 mg 12/13/23 09:00 12/13/23 09:25 Clopidogrel Bisulfate 75 Mg Tablet PO 75 mg DAILY JAIRO Administration Dextrose 12.5 gm 12/12/23 22:11 Dextrose 50% 25 Gm/50 Ml Syringe IV PUSH PRN PRN Hypoglycemia Protocol Empagliflozin 25 mg 12/13/23 09:00 12/13/23 09:21 Empagliflozin 25 Mg Tablet PO 25 mg DAILY JAIRO Administration Enoxaparin Sodium 40 mg 12/13/23 09:00 12/13/23 09:33 Enoxaparin 40 Mg/0.4 Ml Syringe SUB-Q 40 mg DAILY JAIRO Administration Fluticasone/Umeclidinium/Vilanterol 1 puff 12/13/23 08:00 12/13/23 08:28 Fluticasone/Umeclidin/Vilanter 100-62.5-25 Mcg Ellipta INHALATION 1 puff DAILYRT JAIRO Administration Gabapentin 600 mg 12/13/23 02:00 12/13/23 21:57 Gabapentin 300 Mg Capsule PO 600 mg HS JAIRO Administration Glucagon 1 mg 12/12/23 22:11 Glucagon For Inj 1 Mg Vial IM PRN PRN Hypoglycemia Protocol Glucose 15 gm 12/12/23 22:11 Glucose Oral Gel 15 Gm Of Glucse In 37.5 Gm Tube PO PRN PRN Hypoglycemia Protocol Guaifenesin 600 mg 12/13/23 09:00 12/13/23 21:57 Guaifenesin 12 Hr 600 Mg Tabcr PO 600 mg Q12HR JAIRO Administration Hydrochlorothiazide 25 mg 12/13/23 09:00 12/13/23 09:28 Hydrochlorothiazide 25 Mg Tablet PO 25 mg QAM JAIRO Administration Dextrose 1,000 mls @ 100 mls/hr 12/12/23 22:11 Dextrose 5% 1,000 Ml IVPB PRN PRN Hypoglycemia Protocol Insulin Aspart 1 - 3 units 12/13/23 21:00 12/13/23 21:57 Insulin Aspart (*Bkc) 100 Units/Ml SUB-Q 1 units HS JAIRO Administration Protocol Insulin Aspart 3 - 6 units 12/13/23 08:00 12/13/23 17:54 Insulin Aspart (*Bkc) 100 Units/Ml SUB-Q Not Given TIDWM [facility] Protocol Losartan Potassium 100 mg 12/13/23 09:00 12/13/23 09:23 Losartan Potassium 100 Mg Tablet PO 100 mg DAILY JAIRO Administration Methylprednisolone Sodium Succinate 60 mg 12/13/23 00:00 12/14/23 05:24 Methylprednisolone Sod Succ 125 Mg Vial IV PUSH 60 mg Q6HR JAIRO Administration Metoprolol Succinate 25 mg 12/13/23 09:00 12/13/23 09:23 Metoprolol Succinate Ext Rel 25 Mg Tabcr PO 25 mg DAILY JAIRO Administration Montelukast Sodium 10 mg 12/13/23 09:00 12/13/23 09:27 Montelukast Sodium 10 Mg Tablet PO 10 mg DAILY JAIRO Administration Morphine Sulfate 2 mg 12/12/23 17:56 Morphine Sulfate (*Crx) 2 Mg/Ml Inj IV PUSH Q2H PRN Pain Rated 7-10 Multivitamins/Calcium 1 tablet 12/13/23 09:00 12/13/23 09:18 Therapeutic Multivitamins/Minerals Tab (*Bkc) PO 1 tablet DAILY JAIRO Administration Ondansetron HCl 4 mg 12/12/23 17:56 Ondansetron Inj 4 Mg/2 Ml Vial IV PUSH Q4H PRN Nausea Pantoprazole Sodium 40 mg 12/13/23 09:00 12/13/23 09:27 Pantoprazole 40 Mg Tablet PO 40 mg QAM JAIRO Administration Theophylline 400 mg 12/13/23 02:00 12/13/23 21:57 Theophylline Anhydrous 200 Mg Er 24 Hr Capsule PO 400 mg HS JAIRO Administration Radiology Results: ITS Impressions Chest X-Ray 12/12/23 16:07 Impression: Clear lungs. Labs Labs: Laboratory Results - last 24 hr 12/13/23 12/13/23 12/13/23 08:17 08:31 11:59 WBC RBC Hgb Hct MCV MCH MCHC RDW Plt Count MPV Immature Gran % (Auto) Neut % (Auto) Lymph % (Auto) [place] % (Auto) Eos % (Auto) Baso % (Auto) Lymph # (Auto) [place] # (Auto) Eos # (Auto) Baso # (Auto) Abs Immat Gran (auto) Absolute Neuts (auto) Absolute Nucleated RBC Nucleated RBC % Platelet Estimate Hypochromasia Stomatocytes Schistocytes Sodium Potassium Chloride Carbon Dioxide Anion Gap BUN Creatinine Estim Creat Clear Calc Estimated GFR Glucose POC Capillary Glucose 150 H 146 H Calcium Magnesium Total Bilirubin AST ALT Alkaline Phosphatase Total Protein Albumin Influenza A (RT-PCR) Negative Influenza B (RT-PCR) Negative RSV (RT-PCR) Negative SARS-CoV-2 RNA (RT-PCR) Negative 12/13/23 12/13/23 12/13/23 12:01 12:11 17:20 WBC RBC Hgb Hct MCV MCH MCHC RDW Plt Count MPV Immature Gran % (Auto) Neut % (Auto) Lymph % (Auto) [place] % (Auto) Eos % (Auto) Baso % (Auto) Lymph # (Auto) [place] # (Auto) Eos # (Auto) Baso # (Auto) Abs Immat Gran (auto) Absolute Neuts (auto) Absolute Nucleated RBC Nucleated RBC % Platelet Estimate Hypochromasia Stomatocytes Schistocytes Sodium Potassium Chloride Carbon Dioxide Anion Gap BUN Creatinine Estim Creat Clear Calc Estimated GFR Glucose POC Capillary Glucose 202 H 227 H 191 H Calcium Magnesium Total Bilirubin AST ALT Alkaline Phosphatase Total Protein Albumin Influenza A (RT-PCR) Influenza B (RT-PCR) RSV (RT-PCR) SARS-CoV-2 RNA (RT-PCR) 12/13/23 12/14/23 19:50 05:07 WBC 15.4 H RBC 4.21 Hgb 11.7 L Hct 39.5 MCV 93.8 MCH 27.8 MCHC 29.6 L RDW 13.5 Plt Count 550 H MPV 8.5 Immature Gran % (Auto) 0.8 H Neut % (Auto) 92.4 H Lymph % (Auto) 4.1 L [place] % (Auto) 2.5 L Eos % (Auto) 0.1 Baso % (Auto) 0.1 L Lymph # (Auto) 0.63 L [place] # (Auto) 0.4 Eos # (Auto) 0.0 Baso # (Auto) 0.0 Abs Immat Gran (auto) 0.13 H Absolute Neuts (auto) 14.2 H Absolute Nucleated RBC 0.000 Nucleated RBC % 0.0 Platelet Estimate Increased Hypochromasia 1+ Stomatocytes 1+ Schistocytes None seen Sodium 137 Potassium 4.0 Chloride 89 L Carbon Dioxide > 40 H Anion Gap BUN 21 H Creatinine 0.80 Estim Creat Clear Calc 67 Estimated GFR > 60 Glucose 175 H POC Capillary Glucose 208 H Calcium 9.1 Magnesium 2.2 Total Bilirubin 0.3 AST 20 ALT 15 Alkaline Phosphatase 74 Total Protein 7.0 Albumin 3.8 Influenza A (RT-PCR) Influenza B (RT-PCR) RSV (RT-PCR) SARS-CoV-2 RNA (RT-PCR) Quality VTE Prophylaxis VTE prophylaxis: pharmacologic ordered (Lovenox 40 mg subQ daily.)
[2023-12-14] MEDS: FLUTICASONE/UMECLIDIN/VILANTER 100-62.5-25 MCG ELLIPTA 1 PUFF INHALATION (07:17)
[2023-12-14 08:48] LABS: Glucose Point of Care 190 mg/dl (65-105)
[2023-12-14] MEDS: THERAPEUTIC MULTIVITAMINS/MINERALS TAB (*BKC) 1 TABLET PO (09:01)
[2023-12-14] MEDS: EMPAGLIFLOZIN 25 MG TABLET PO (09:01)
[2023-12-14] MEDS: CLOPIDOGREL BISULFATE 75 MG TABLET PO (09:01)
[2023-12-14] MEDS: hydroCHLOROthiazide 25 MG TABLET PO (09:01)
[2023-12-14] MEDS: guaiFENesin 12 HR 600 MG TABCR PO (09:01)
[2023-12-14] MEDS: ASPIRIN 81 MG CHEWABLE TABLET PO (09:01)
[2023-12-14] MEDS: ATORVASTATIN 40 MG TABLET PO (09:01)
[2023-12-14] MEDS: LOSARTAN POTASSIUM 100 MG TABLET PO (09:02)
[2023-12-14] MEDS: ENOXAPARIN 40 MG/0.4 ML SYRINGE SUB-Q (09:02)
[2023-12-14] MEDS: MONTELUKAST SODIUM 10 MG TABLET PO (09:02)
[2023-12-14] MEDS: PANTOPRAZOLE 40 MG TABLET PO (09:02)
[2023-12-14] MEDS: METOPROLOL SUCCINATE EXT REL 25 MG TABCR PO (09:02)
[2023-12-14 12:07] LABS: Glucose Point of Care 201 mg/dl (65-105)
[2023-12-14] MEDS: INSULIN ASPART (*BKC) 100 UNITS/ML SUB-Q ×2 (12:15→20:12)
[2023-12-14 17:11] LABS: Glucose Point of Care 164 mg/dl (65-105)
[2023-12-14] MEDS: FLUCONAZOLE 100 MG TABLET PO (17:37)
[2023-12-14] MEDS: guaiFENesin 12 HR 600 MG TABCR 1200 MG PO (20:11)
[2023-12-14] MEDS: THEOPHYLLINE ANHYDROUS 200 MG ER 24 HR CAPSULE 400 MG PO (20:11)
[2023-12-14] MEDS: GABAPENTIN 300 MG CAPSULE 600 MG PO (20:11)
[2023-12-14 20:20] LABS: Glucose Point of Care 270 mg/dl (65-105)
[2023-12-15] VITALS (14 sets, daily range): BP systolic 128–131; BP diastolic 73–80; PULSE 81–104; RESP 20; TEMP 36.3; O2SAT 90–96
[2023-12-15] MEDS: ACETAMINOPHEN 325 MG TABLET 650 MG PO (02:33)
[2023-12-15] MEDS: IPRATROPIUM 0.5 MG/ALBUTEROL SULFATE 2.5 MG AMPUL.NEB 3 ML INHALATION ×3 (03:12→12:41)
[2023-12-15] MEDS: methylPREDNISolone SOD SUCC 125 MG VIAL 60 MG IV PUSH ×2 (05:03→12:28)
[2023-12-15 05:24] LABS: Basophils Percent Auto 0.2 % (0.2-1.2); Hematocrit 38.5 % (37.0-47.0); Hemoglobin 11.4 g/dL (12.0-15.0); Immature Granulocyte Absolute 0.23 K/mm3 (0.00-0.031); Immature Granulocyte Percent A 1.3 % (0-0.5); Lymphocytes Absolute Auto 0.57 K/mm3 (0.9-3.2); Lymphocytes Percent Auto 3.2 % (18.3-44.2); Mean Corpuscular HGB Conc 29.6 g/dl (32-36); Mean Corpuscular Hemoglobin 27.9 pg (26-34); Mean Corpuscular Volume 94.4 fl (80-100); Mean Platelet Volume 8.6 fl (7.4-10.4); Monocytes Absolute Auto 0.4 K/mm3 (0.1-0.6); Monocytes Percent Auto 2.2 % (2.6-8.5); Neutrophils Absolute Auto 16.7 K/mm3 (1.3-6.7); Neutrophils Percent Auto 93.1 % (45.5-73.1); Platelet Count Result 565 k/mm3 (150-375); Red Blood Count 4.08 M/mm3 (4.2-5.4); Red Cell Distribution Width 13.6 % (11.5-14.5); White Blood Count 17.9 K/mm3 (4.5-10.0)
[2023-12-15 05:40] LABS: Alanine Aminotransferase 17 U/L (6-35); Albumin Level 3.8 g/dL (3.5-5.1); Alkaline Phosphatase 69 U/L (38-126); Aspartate Amino Transferase 24 U/L (14-36); Bilirubin,Total 0.3 mg/dL (0.2-1.3); Blood Urea Nitrogen 35 mg/dL (7-17); Calcium 9.3 mg/dL (8.4-10.2); Carbon Dioxide > 40 mmol/L (22-30); Chloride 91 mmol/L (98-107); Estimated CRCL calculation 54 ml/min; Estimated Glomerular Filt Rate 56; Glucose 180 mg/dL (65-110); Magnesium 2.2 mg/dL (1.6-2.3); Potassium 3.8 mmol/L (3.4-5.0); Sodium 137 mmol/L (137-145)
[2023-12-15 05:48] LABS: Anisocytosis 1+; Hypochromasia 1+; Ovalocytes 1+; Platelet Estimate Increased (Adequate); Schistocytes None Seen
[2023-12-15] MEDS: FLUTICASONE/UMECLIDIN/VILANTER 100-62.5-25 MCG ELLIPTA 1 PUFF INHALATION (07:47)
[2023-12-15 08:38] LABS: Glucose Point of Care 177 mg/dl (65-105)
[2023-12-15] MEDS: ATORVASTATIN 40 MG TABLET PO (08:45)
[2023-12-15] MEDS: EMPAGLIFLOZIN 25 MG TABLET PO (08:45)
[2023-12-15] MEDS: ASPIRIN 81 MG CHEWABLE TABLET PO (08:45)
[2023-12-15] MEDS: LOSARTAN POTASSIUM 100 MG TABLET PO (08:45)
[2023-12-15] MEDS: PANTOPRAZOLE 40 MG TABLET PO (08:46)
[2023-12-15] MEDS: hydroCHLOROthiazide 25 MG TABLET PO (08:46)
[2023-12-15] MEDS: guaiFENesin 12 HR 600 MG TABCR 1200 MG PO (08:46)
[2023-12-15] MEDS: METOPROLOL SUCCINATE EXT REL 25 MG TABCR PO (08:46)
[2023-12-15] MEDS: THERAPEUTIC MULTIVITAMINS/MINERALS TAB (*BKC) 1 TABLET PO (08:47)
[2023-12-15] MEDS: CLOPIDOGREL BISULFATE 75 MG TABLET PO (08:47)
[2023-12-15] MEDS: ENOXAPARIN 40 MG/0.4 ML SYRINGE SUB-Q (08:47)
[2023-12-15] MEDS: MONTELUKAST SODIUM 10 MG TABLET PO (08:47)
--- NOTE | 2023-12-15 10:34 | P.DS_ITS ---
DS: Admitting Diagnosis Discharge Date - Admitting Diagnosis Shortness of breath DS: Discharge Diagnosis Discharge Diagnosis (1) COPD exacerbation: Code(s): J44.1 - Chronic obstructive pulmonary disease with (acute) exacerbation Status: Acute Assessment and Plan: Significant COPD exacerbation. IV steroids q.6. DuoNeb increased frequency to q.4 hours. Patient is on theophylline as a home medication. Continue supplemental oxygen, may require BiPAP. 12/13: * Improvement with breathing after addition of steroids and increase neb frequency * Still on 6 L nasal cannula * Will repeat a home O2 walking study at discharge. Discussed with her she may have increased oxygen requirements during the interim of her infection. * Added guaifenesin b.i.d. (2) Acute on chronic respiratory failure with hypoxia and hypercapnia: Code(s): J96.21 - Acute and chronic respiratory failure with hypoxia; J96.22 - Acute and chronic respiratory failure with hypercapnia Status: Acute Assessment and Plan: Increased oxygen demand patient now utilizing 6 liters/minute saturating 88-91%. PCO2 66 on initial ABG. (3) Type 2 diabetes mellitus: Qualifiers: Diabetes mellitus intermediate insulin use: without termite helper use Diabetes mellitus complication status: with neurologic complications Diabetes mellitus complication detail: with polyneuropathy Qualified Code(s): E11.42 - Type 2 diabetes mellitus with diabetic polyneuropathy Code(s): E11.9 - Type 2 diabetes mellitus without complications Status: Acute Assessment and Plan: Fingerstick glucose ACHS with sliding scale insulin. Expect this to rise due to frequent IV steroids. 12/13: * Blood glucose ranging 190-201 * Continue with SSI moderate dosing * Accu-Cheks and hypoglycemia protocol (4) Acute hypokalemia: Code(s): E87.6 - Hypokalemia Status: Acute Assessment and Plan: Potassium initially 2.6 arrival was given replacement 3.6 on morning labs today. 12/13: * Labs reviewed potassium is 4.0 today (5) Hypomagnesemia: Code(s): E83.42 - Hypomagnesemia Status: Acute Assessment and Plan: Initial magnesium initial magnesium 1.1. Four grams replacement given on admit, level now 2 5. 3: * Reviewed, Mag 2.2 Plan Feeding: Diabetic diet Analgesia: Tylenol Thromboembolic prophylaxis: Lovenox Ulcer prophylaxis: Ppi Glycemic control: Moderate doses SSI Bowel regimen: Lines: Antibiotics: Disposition: DC home potentially tomorrow DS: Summary Hospital Course Reason for hospitalization: COPD exacerbation Hospital Course: 63-year-old female with MS medical history chronic hypercapnic hypoxic respiratory failure, continued tobacco abuse, COPD, severe obstructive sleep apnea intolerant to CPAP, peripheral artery disease, essential hypertension and 2 diabetes among other comorbidities who presented to the hospital from home after 2.5 weeks of shortness of breath.? Patient reports that she has had a largely nonproductive cough the cough has been worsening. Please see remainder of the H&P for further details. Interval history: 12/14/23:? Patient seen resting in the chair, she is in no acute distress.? She is able to speak in full sentences.? She states that her breathing has improved today but is not yet back to her baseline.? Her wheezing has resolved with addition of steroids.? She is not yet back to her home O2 settings.? She does have a strong cough but it is nonproductive.? She feels congested and feels like she needs to cough something up.? She is also concerned that she has a yeast infection.? She states she gets these frequently and is asking for fluconazole. 12/14: Patient is seen today resting in bed. She states her breathing is even more improved today than yesterday. The Mucinex is helping and she is coughing up thin, clear secretions. She is back at her baseline oxygen requirements of 5 L. she feels well enough to go home today. Labs and vitals have been reviewed. She will discharge home with 4 more days of oral prednisone, Mucinex, and home inhalers as well as neb treatments. She does not need refills on her home medications. She has been instructed to follow-up with her primary care provider in the next 1 week. Status at Discharge Cognitive/behavioral status at discharge: A&O x4, pleasant Time Spent with Patient Time attestation: Total time spent providing and/or coordinating discharge services: 43 Exam Narrative: General: well developed, well nourished, appears stated age. HEENT: normocephalic, atraumatic. Mucous membranes moist. EOMI, PERRLA, bilateral sclera anicteric, no conjunctival injection. Neck supple without JVD, lymphadenopathy, or bruit. Respiratory: clear to auscultation bilaterally. No rales/rhonic/wheezes. Cardiovascular: Regular rate and rhythm, normal S1-S2 upon auscultation. No murmurs, rubs, or clicks. PMI is nondisplaced, capillary re-fill less than 3 second. Abdomen: Soft, round, no pulsatile masses, non-distended and non-tender. No rebound, no guarding. No CVA tenderness, no hepatosplenomegaly. Bowel sounds present to all four quadrants. No high pitch or tinkling sounds, resonant to percussion. Extremities: No cyanosis, clubbing, or edema present. Pulses are palpable 2/2. Active ROM to all four extremities. Neuro: Alert and orientated x 4. PERRLA. Cranial nerves 2-12 intact without focal deficit. Skin: Warm, dry, and intact, without rash, erythema, or lesion. Lines: Incisions: Psych: pleasant, cooperative, normal speech, normal affect, no hallucinations, no dysarthria DS: Data Data Completed and Pending Labs on day of discharge: Labs from last 24 hours 12/15/23 12/15/23 12/14/23 08:27 05:02 19:29 WBC 17.9 H RBC 4.08 L Hgb 11.4 L Hct 38.5 MCV 94.4 MCH 27.9 MCHC 29.6 L RDW 13.6 Plt Count 565 H MPV 8.6 Immature Gran % (Auto) 1.3 H Neut % (Auto) 93.1 H Lymph % (Auto) 3.2 L [place] % (Auto) 2.2 L Eos % (Auto) 0.0 Baso % (Auto) 0.2 Lymph # (Auto) 0.57 L [place] # (Auto) 0.4 Eos # (Auto) 0.0 Baso # (Auto) 0.0 Abs Immat Gran (auto) 0.23 H Absolute Neuts (auto) 16.7 H Absolute Nucleated RBC 0.000 Nucleated RBC % 0.0 Platelet Estimate Increased Hypochromasia 1+ Anisocytosis 1+ Ovalocytes 1+ Schistocytes None seen Sodium 137 Potassium 3.8 Chloride 91 L Carbon Dioxide > 40 H Anion Gap BUN 35 H D Creatinine 1.00 Estim Creat Clear Calc 54 Estimated GFR 56 L Glucose 180 H POC Capillary Glucose 177 H 270 H Calcium 9.3 Magnesium 2.2 Total Bilirubin 0.3 AST 24 ALT 17 Alkaline Phosphatase 69 Total Protein 7.0 Albumin 3.8 12/14/23 12/14/23 17:04 11:57 WBC RBC Hgb Hct MCV MCH MCHC RDW Plt Count MPV Immature Gran % (Auto) Neut % (Auto) Lymph % (Auto) [place] % (Auto) Eos % (Auto) Baso % (Auto) Lymph # (Auto) [place] # (Auto) Eos # (Auto) Baso # (Auto) Abs Immat Gran (auto) Absolute Neuts (auto) Absolute Nucleated RBC Nucleated RBC % Platelet Estimate Hypochromasia Anisocytosis Ovalocytes Schistocytes Sodium Potassium Chloride Carbon Dioxide Anion Gap BUN Creatinine Estim Creat Clear Calc Estimated GFR Glucose POC Capillary Glucose 164 H 201 H Calcium Magnesium Total Bilirubin AST ALT Alkaline Phosphatase Total Protein Albumin Discharge Plan Discharge Attending physician on discharge: Makenzie Meyer Discharging Clinician: Jessica Goldman Anticipated Discharge Date/Time: 12/15/23 10:37 Patient Disposition: Home, Self-Care Activity: may shower Diet: diabetic Discharge Instructions: You were admitted for COPD exacerbation. We restarted her home inhalers, provided nebulizer treatments, and IV steroids and her symptoms have improved. Your back on her home oxygen requirements of 5 L. I would like you to continue 4 more days of oral steroids, prednisone 40 mg. Please continue taking your regularly prescribed medications. You can continue with guaifenesin 1200 mg twice a day. This medication helps thin secretions so they can be coughed up. Today your sputum was clear. If you notice your sputum changes color to a green, yellow, brown or you start to run a fever you should contact your primary care provider as you may require an oral antibiotic. Please follow-up with your primary care provider in the next 1 week given recent hospitalization. Should you experience worsening shortness of breath, increased oxygen requirements, chest pain, fever, chills, increased sputum production with green/yellow/brown color then you will need to be re-evaluated. Thank you for allowing us to care for you, Jessica DENNIS Patient Instructions: Antibiotic Form, Clopidogrel (By mouth), Heart Failure (DC), COPD (Chronic Obstructive Pulmonary Disease) (DC), Chronic Lung Disease and Infection Prevention (DC), Dyspnea Scale and Exercise (DC) Stand Alone Forms: General Discharge Information Follow-up/Referrals: Oscar Finn MD [Primary Care Provider] - Discharge Medications: New prednisone 20 mg tablet 40 mg PO DAILY Qty: 8 0RF guaifenesin [Mucus Relief ER] 600 mg Tablet Extended Release 12hr 1,200 mg PO Q12HR Qty: 14 0RF Continued losartan-hydrochlorothiazide 100-25 mg tablet 1 tablet PO DAILY gabapentin 300 mg capsule 600 mg PO HS atorvastatin 40 mg tablet 40 mg PO DAILY pantoprazole 40 mg tablet,delayed release (DR/EC) 40 mg PO QAM Hold Instructions: Resume on 09/13/23. hold while taking home antibiotic montelukast 10 mg tablet 10 mg PO DAILY metoprolol succinate 25 mg tablet extended release 24 hr 25 mg PO DAILY clopidogrel 75 mg tablet 75 mg PO DAILY aspirin [Apoorva Chewable Aspirin] 81 mg tablet,chewable 81 mg PO DAILY One Daily [facility] 18 mg iron-400 mcg-450 mg Ca tablet 1 tablet PO DAILY Jardiance 25 mg tablet 25 mg PO DAILY metformin 500 mg tablet extended release 24 hr 500 mg PO BID ipratropium-albuterol 0.5 mg-3 mg(2.5 mg base)/3 mL solution for nebulization 3 ml INHALATION QID theophylline 400 mg tablet extended release 24 hr 400 mg PO HS Rybelsus 7 mg tablet 7 mg PO DAILY albuterol sulfate [Ventolin HFA] 90 mcg/actuation HFA aerosol inhaler 2 puff inhalation Q4H PRN (Reason: shortness of breath or wheezing) Qty: 1 4RF Trelegy Ellipta 100-62.5-25 mcg blister with device 1 inh inhalation Q24H 90 Days Qty: 180 1RF Rx Instructions: Rinse and spit. Discontinued budesonide 1 mg/2 mL suspension for nebulization 1 mg inhalation DAILY Date of admission: 12/14/23 10:05 Primary Care Provider: Oscar Finn Admitting Provider: David Claudio Attending physician on admission: David Claudio Condition: Improved Quality VTE Prophylaxis VTE prophylaxis: pharmacologic ordered (Lovenox 40 mg subQ daily.)
--- NOTE | 2023-12-15 11:22 | PC.NURSE ---
On 12/15/23, the student, [Ayesha Person], provided care and completed [facility] documentation on this patient. I have reviewed the student's documentation and agree with the findings.
[2023-12-15 12:15] LABS: Glucose Point of Care 160 mg/dl (65-105)
--- NOTE | 2023-12-15 13:33 | PCCCNOTE ---
On 12/15/23, the student, Britney Harrell, provided care and completed [facility] documentation on this patient. I have reviewed the student's documentation and agree with the findings.
== END 2023-12-15 13:08 | disposition home or self-care (01) | DRG 192 ==
LOC: ANHED 17:54 → ANH2MED 18:16
PROVIDERS: Nurse Practitioner; Student in an Organized Health Care Education/Training Program; Admitting Provider Internal Medicine; Emergency Provider Family Medicine; PCP Internal Medicine; Visit Provider Nurse Practitioner Acute Care
DX: J44.1 Chronic obstructive pulmonary disease with (acute) exacerbation (principal); E11.42 Type 2 diabetes mellitus with diabetic polyneuropathy; E87.6 Hypokalemia; E83.42 Hypomagnesemia; G47.33 Obstructive sleep apnea (adult) (pediatric); I73.9 Peripheral vascular disease, unspecified; I10 Essential (primary) hypertension; Z20.822 Contact with and (suspected) exposure to COVID-19; I25.10 Atherosclerotic heart disease of native coronary artery without angina pectoris; E78.5 Hyperlipidemia, unspecified; F17.210 Nicotine dependence, cigarettes, uncomplicated; Z99.81 Dependence on supplemental oxygen; Z95.5 Presence of coronary angioplasty implant and graft; E66.9 Obesity, unspecified; Z68.35 Body mass index [BMI] 35.0-35.9, adult
CPT/HCPCS: 36415; 36600; 71046; 80048; 80053; 82805; 82948; 83735; 85025; 87637; 93005; 94640; 96365; 96366; 96367; 96375; 96376; 99285; A9270; G0378; J1650; J1815; J2919; J3475; J3480; J7030; J7040

== ENCOUNTER 2024-01-09 21:40 | Emergency (ER) | payer MEDICARE, SELFPAY ==
[2024-01-09] VITALS (22 sets, daily range): BP systolic 118–136; BP diastolic 53–86; PULSE 101–115; RESP 16–32; TEMP 36; O2SAT 89–99
--- NOTE | ~2024-01-09 | XR_ITS ---
EXAMINATION: XR chest 1V portable Exam Date/Time: 01/09/2024 22:00 CDT HISTORY: sob Comparison: 12/12/2023. RESULT: Lines, tubes, and devices: None. Lungs and pleura: Hazy, subsegmental airspace disease in the right lower lung. Cardiomediastinal silhouette: Stable. Other: No acute osseous or upper abdominal finding. IMPRESSION: Subsegmental right lower lung airspace disease may represent infection in the appropriate clinical co ntext. Reviewed, dictated and finalized at location K. IMPRESSION: Subsegmental right lower lung airspace disease may represent infection in the a ppropriate clinical context.
--- NOTE | 2024-01-09 21:43 | ECG_ITS ---
SEE SCANNED COPY FOR CONFIRMED REPORT MTDD
--- NOTE | 2024-01-09 21:44 | ED.SOB ---
HPI - SOB/Dyspnea General Chief Complaint: Shortness of Breath/Dyspnea Stated Complaint: shortness of breath Time Seen by Provider: 01/09/24 21:42 History of Present Illness HPI Narrative: Pt presents with SOb for several days but getting progressively worse. Pt has history of copd and has been giving herself nebs without much releif. Pt received neb and solumedrol in route per EMS and feels a little better. Pt denies fever or cough. Related Data Home Medications Medication Instructions Recorded Confirmed aspirin 81 mg chewable tablet 81 mg PO DAILY 11/17/20 12/28/23 (Apoorva Chewable Low Dose Aspirin) atorvastatin 40 mg tablet 40 mg PO DAILY 11/17/20 12/28/23 clopidogrel 75 mg tablet 75 mg PO DAILY 11/17/20 12/28/23 metoprolol succinate 25 mg 25 mg PO DAILY 11/17/20 12/28/23 tablet,extended release 24 hr montelukast 10 mg tablet 10 mg PO DAILY 11/17/20 12/28/23 pantoprazole 40 mg tablet,delayed 40 mg PO QAM 11/17/20 12/28/23 release multivit-iron 18 mg-folic acid 400 1 tablet PO DAILY 07/23/21 12/28/23 mcg-calcium 450 mg-minerals tablet (One Daily Float: [employer]) empagliflozin 25 mg tablet 25 mg PO DAILY 04/27/22 12/28/23 (Jardiance) metformin 500 mg tablet,extended 500 mg PO BID 04/27/22 12/28/23 release 24 hr losartan 100 1 tablet PO DAILY 12/24/22 12/28/23 mg-hydrochlorothiazide 25 mg tablet gabapentin 300 mg capsule 600 mg PO HS 06/29/23 12/28/23 ipratropium 0.5 mg-albuterol 3 mg 3 ml inhalation QID 12/12/23 12/28/23 (2.5 mg base)/3 mL nebulization soln semaglutide 7 mg tablet (Rybelsus) 7 mg PO DAILY 12/12/23 12/28/23 theophylline 400 mg 400 mg PO HS 12/12/23 12/28/23 tablet,extended release 24 hr Allergies Allergy/AdvReac Type Severity Reaction Status Date / Time No Known Allergies Allergy Verified 01/09/24 23:52 Review of Systems Review of Systems: All systems reviewed & are unremarkable except as noted in HPI and below PMFSH Past Medical History Medical History Chronic respiratory failure with hypoxia and hypercapnia COPD with emphysema Coronary artery disease Depression Dyslipidemia Gastroesophageal reflux disease Hypertension Noncompliance Obesity hypoventilation syndrome Obstructive sleep apnea Intolerant therapy Oxygen dependent Peripheral arterial disease Type 2 diabetes mellitus Surgical History Surgical History History of angioplasty of peripheral vessel Right lower extremity. History of cardiac catheterization History of coronary artery stent placement Family History Family History Father Heart disease Acute myocardial infarction Mother Hypertension COPD (chronic obstructive pulmonary disease) Sibling Breast cancer Social History Social History (Updated 12/28/23 @ 09:57 by Jenelle Sosa MA) Social History: She has smoked 2-3 packs per day. She has cut back to 3-4 cigarettes a day. She denies any significant alcohol or illicit substance use. Surrogate medical decision maker: Abebe Jacinto, spouse. Code status: Full code. Smoking packs per day: 0.75 Smoking cigarettes per day: 15.0 Years smoked: 40 Smoking pack-years: 30.00 Smoking status: Current every day smoker Second hand tobacco smoke exposure: Yes Alcohol intake: never Substance use: never Do You Feel Safe in your Home?: Yes Lack of Transportation: No Lack of Food: Never True Current Housing: I Have Housing Concerned About Future Housing: No Difficulty Paying Gas/Electric Bills: No Difficulty Paying for Meds: No Currently Unemployed: No Education: High School Diploma/GED Difficulty w/ Childcare or Family Care: No Additional living arrangements comments: Lives with in [place]. Having for 20 years. Additional occupation/education comments: [employer]
[2024-01-09] MEDS: ALBUTEROL SULFATE NEB 2.5 MG/3 ML INH 10 MG INHALATION (21:52)
--- NOTE | 2024-01-09 22:07 | PC.NURSE ---
EKG COMPLETED AND GIVEN TO PROVIDER FOR EVALUATION. 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 PATIENT REPORTS TYPICALLY WEARING HOME OXYGEN AT 5 LPM AND STATES SHE HAS BEEN FEELING SOB FOR THE PAST WEEK OR TWO.
[2024-01-09 22:17] LABS: Basophils Absolute Auto 0.03 K/mm3 (0.00-0.10); Basophils Percent Auto 0.3 % (0.0-1.0); Eosinophils Absolute Auto 0.09 K/mm3 (0.02-0.50); Eosinophils Percent Auto 0.9 % (1.0-6.0); Hematocrit 41.6 % (35.0-49.0); Hemoglobin 12.2 g/dL (12.0-15.0); Immature Granulocyte Absolute 0.03 K/mm3 (0.00-0.00); Immature Granulocyte Percent A 0.3 % (0.0-0.0); Lymphocytes Absolute Auto 1.72 K/mm3 (1.10-4.50); Lymphocytes Percent Auto 16.6 % (18.0-42.0); Mean Corpuscular HGB Conc 29.3 g/dL (32-36); Mean Corpuscular Hemoglobin 27.5 pg (27.0-31.0); Mean Corpuscular Volume 93.7 fL (78.0-102.0); Mean Platelet Volume 8.1 fl (9.2-11.8); Monocytes Absolute Auto 0.85 K/mm3 (0.10-0.90); Monocytes Percent Auto 8.2 % (2.0-11.0); Neutrophils Absolute Auto 7.66 K/mm3 (1.70-7.20); Neutrophils Percent Auto 73.7 % (50.0-70.0); Platelet Count Result 472 K/mm3 (150-420); Red Blood Count 4.44 M/mm3 (4.20-5.40); Red Cell Distribution Width 14.4 % (11.6-14.4); White Blood Count 10.4 K/mm3 (4.8-10.8)
[2024-01-09 22:32] LABS: Partial Thromboplastin Time 25.6 Sec (23.9-30.70); Prothrombin Time 10.6 Seconds (9.50-12.1)
[2024-01-09 22:41] LABS: Alanine Aminotransferase 26 U/L (14-59); Albumin Level 3.1 g/dL (3.4-5.0); Alkaline Phosphatase 91 U/L (46-116); Aspartate Amino Transferase 19 U/L (15-37); Bilirubin,Total 0.3 mg/dL (0.00-1.00); Blood Urea Nitrogen 12 mg/dL (7-18); Calcium 9.6 mg/dL (8.5-10.1); Chloride 94 mmol/L (98-108); Estimated CRCL calculation 64 ml/min; Estimated Glomerular Filt Rate > 60; Glucose 131 mg/dL (70-99); NT Pro B Type Natriuretic Pept 161 pg/mL (0-125); Osmolality Calculated 297 mOsm/kg (285-295); Potassium 4.1 mmol/L (3.5-5.1); Sodium 143 mmol/L (136-145); Total Protein 7.2 g/dL (6.4-8.2); Troponin I 13.3 ng/L (0.00-60.4)
[2024-01-09 22:43] LABS: Carbon Dioxide > 45 mmol/L (21-32)
--- NOTE | 2024-01-09 23:00 | PC.NURSE ---
DR. TIWARI AT BEDSIDE FOR PATIENT UPDATE.
--- NOTE | 2024-01-09 23:39 | ECG_ITS ---
SEE SCANNED COPY FOR CONFIRMED REPORT MTDD
--- NOTE | 2024-01-09 23:41 | PC.NURSE ---
RN ATTEMPTED IV START AT THIS TIME X 1 WITHOUT SUCCESS, 2 ML OF BLOOD OBTAINED, SENT TO LAB. PATIENT AWAKE AND ALERT, LAYING BACK ON STRETCHER, STATES SHE WAS HAVING A HARD TIME BREATHING. PATIENT ENCOURAGED TO SLOW HER BREATHING AND TAKE DEEP BREATHS IN THROUGH HER NOSE AND OUT THROUGH HER MOUTH. PATIENT SPOUSE, JACK AT BEDSIDE. RN MONITORING. DR TIWARI AWAITING CALL BACK FROM HOSPITALIST AT [facility], PATIENT AWARE.
[2024-01-10] VITALS (12 sets, daily range): BP systolic 121–141; BP diastolic 56–82; PULSE 99–111; RESP 17–39; TEMP 36.8; O2SAT 91–99
[2024-01-10] MEDS: cefTRIAXone 2 GM/NS 100 ML 2 GM/100 ML BAG IVPB (00:04)
[2024-01-10] MEDS: ALBUTEROL SULFATE NEB 2.5 MG/3 ML INH INHALATION (00:21)
--- NOTE | 2024-01-10 00:25 | PC.NURSE ---
PATIENT SPOUSE AT NURSES STATION/SPOKE WITH DR REGARDING PATIENT HAVING INCREASED SOB, REQUESTING ADDITIONAL BREATHING TX. ORDERS OBTAINED AND PATIENT MEDICATED, SEE MAR. IV MEDS HUNG PER ORDER, SEE NOV.
[2024-01-10] MEDS: AZITHROMYCIN 500 MG/NS 250 ML 500 MG/250 ML BAG 250 MG IVPB (00:27)
[2024-01-10 00:35] LABS: Base Excess ABG 10.4 mmol/L (0-2); HCO3 ABG 38.1 mmol/L (23-29); Oxygen Content ABG 17.2 %vol (16.0-22.0); Oxygen Saturation ABG 96.5 % (95-97); Oxyhemoglobin 94.1 % (94-100); PCO2 ABG 66.3 mmHg (35-45); PO2 ABG 90.8 mmHg (80-90); Total Hemoglobin 12.9 g/dL (12.0-18.0); pH ABG 7.38 (7.35-7.45)
[2024-01-10 00:38] LABS: Device NASAL CANNULA; Modified Allen's Test Pass; Site Drawn RIGHT RADIAL
--- NOTE | 2024-01-16 13:00 | PC.NURSE ---
Final blood culture report: no growth after 5 days. no further action or treatment needed at this time per ERP.
== END 2024-01-10 01:31 | disposition short-term general hospital (02) ==
PROVIDERS: Emergency Provider Emergency Medicine; PCP Internal Medicine
DX: J44.1 Chronic obstructive pulmonary disease with (acute) exacerbation (principal); I48.91 Unspecified atrial fibrillation; J18.9 Pneumonia, unspecified organism; Z79.82 Long term (current) use of aspirin; I25.10 Atherosclerotic heart disease of native coronary artery without angina pectoris; E78.5 Hyperlipidemia, unspecified; K21.9 Gastro-esophageal reflux disease without esophagitis; I10 Essential (primary) hypertension; E11.9 Type 2 diabetes mellitus without complications; G47.33 Obstructive sleep apnea (adult) (pediatric); F17.210 Nicotine dependence, cigarettes, uncomplicated
CPT/HCPCS: 36415; 36600; 71045; 80053; 82805; 83880; 84484; 85025; 85610; 85730; 87040; 93005; 94640; 96365; 96367; 99285; J0456; J0696

== ENCOUNTER 2024-01-10 02:10 | Inpatient (IN) | payer MEDICARE, SELFPAY ==
[2024-01-10] VITALS (31 sets, daily range): BP systolic 111–138; BP diastolic 46–72; PULSE 78–116; RESP 20–28; TEMP 36.2–37; O2SAT 91–100; BMI 37.1
--- NOTE | 2024-01-10 01:48 | ECG_ITS ---
SEE SCANNED COPY FOR CONFIRMED REPORT MTDD
--- NOTE | 2024-01-10 02:14 | ADMGEN ---
0209: This patient, Damaris Jacinto, was admitted to IMU Room 202-01. Patient/family oriented to hospital policies and general routines including ID bracelet, bed and alarms, visiting hours, pain management, procedures, bathroom and other care routines, personal items, smoking policy, room service/diet, and visiting hours. Information on how to activate the Rapid Response Team has been discussed. Patient/Family are encouraged to report perceived risks to care and to ask questions if they do not understand what they are told or what they should do.
[2024-01-10] MEDS: methylPREDNISolone SOD SUCC 125 MG VIAL 60 MG IV PUSH ×3 (02:54→17:32)
[2024-01-10] MEDS: ALBUTEROL SULFATE NEB 2.5 MG/3 ML INH 5 MG INHALATION ×4 (02:59→19:41)
[2024-01-10] MEDS: IPRATROPIUM BR 0.02% INH SOLN 0.5 MG/2.5 ML VIAL INHALATION ×5 (02:59→19:41)
--- NOTE | 2024-01-10 03:09 | PM.IMHP ---
H&P: HPI History of Present Illness Date/Time: 01/10/24 03:09 Chief Complaint: Shortness of breath Narrative: 63-year-old female with a past medical history of end-stage COPD with chronic hypoxic hypercapnic respiratory failure, severe sleep apnea with noncompliance with positive-pressure ventilation, coronary artery disease with stents, peripheral vascular disease, and diabetes mellitus among other comorbidities who presented to the ER at [facility] due to respiratory distress. On presentation to the outside ER the patient was actively tripoding and diaphoretic. She refused BiPAP at the outside facility. She initially was on 02/16 L at that facility and was able to be weaned down after she had received 125 mg of IV Solu-Medrol by EMS and an hour long nebulizer in the ER. Patient's symptoms improved significantly but her relief only lasted a couple of hours that she began having symptoms again. She reports that following her last hospitalization at the beginning of December she felt better until her steroid taper ended. When her steroid taper ended her primary care doctor placed her on low-dose daily prednisone of 5 mg. Despite these measures she developed increasing shortness of breath over the last 10 days or so. Is been accompanied by increased cough. She reports that she is not producing much sputum with when she does. Very sputum it is white and thick. She has had low-grade temperatures at home for the last 24 hours with temperatures of 99.3. She lives with her and denies any ill contacts. She has not noticed any lower extremity swelling calf pain or chest pain. She denies any other ill symptoms. She has been using her nebulizers at home sometimes as often as 1 an hour. Over the last week she has been using her nebs at least every 4 hours. She has increased her home oxygen at times this week due to her shortness of breath. She frequently does not sleep at night due to her breathing and does not off multiple times during the day. She sleeps in a adjustable bed and is in a recliner during the day. After last hospitalization she was discharged with noninvasive ventilator but again she still is no more tolerant of this than she is the BiPAP that she was post be using over the last 8 or so years. She did have an at home evaluation of her pulse oximetry on the noninvasive ventilator at which time she did wear it through the night. She reported that it was okay. She continues to smoke approximately 1 pack of cigarettes per day. She know she needs to quit smoking but is still not ready to quit. At home her oxygen saturations have been between 88 and 91%. Notes from her pulmonary office visit recommend her sats be was a 90 and 94%. The patient reports that she has chronically loose stools she will occasionally have loss of bowel control.. She states that recently she was started on Daliresp. The patient reports that she could not tolerate as she was having continuously incontinent stools. Review of Systems Review of Systems: 12 systems were reviewed with pertinent positives and negatives per HPI. Except as documented in the HPI, all other systems were reviewed and are negative. [facility] Past Medical History Medical History Chronic respiratory failure with hypoxia and hypercapnia COPD with emphysema Coronary artery disease Depression Dyslipidemia Gastroesophageal reflux disease Hypertension Noncompliance Obesity hypoventilation syndrome Obstructive sleep apnea Intolerant therapy Oxygen dependent Peripheral arterial disease Type 2 diabetes mellitus Surgical History Surgical History History of angioplasty of peripheral vessel Right lower extremity. History of cardiac catheterization History of coronary artery stent placement Family History Family History (Reviewed 01/10/24 @ 07:12 by Shazia Torres DO
[2024-01-10 03:19] LABS: Glucose Point of Care 171 mg/dl (65-105)
[2024-01-10] MEDS: WATER FOR IRRIGATION, STERILE 1,000 ML BOTTLE 1000 ML (05:06)
[2024-01-10 05:31] LABS: Influenza A QL RT-PCR Negative (Negative); Influenza B QL RT-PCR Negative (Negative); RSV RNA, RT-PCR Negative (Negative); SARS-CoV-2 RNA PCR Negative (Negative)
[2024-01-10] MEDS: FLUTICASONE/UMECLIDIN/VILANTER 100-62.5-25 MCG ELLIPTA 1 PUFF INHALATION (07:25)
[2024-01-10 08:37] LABS: Glucose Point of Care 209 mg/dl (65-105)
[2024-01-10] MEDS: PANTOPRAZOLE 40 MG TABLET PO (09:51)
[2024-01-10] MEDS: METOPROLOL SUCCINATE EXT REL 25 MG TABCR PO (09:51)
[2024-01-10] MEDS: metFORMIN HCL XR 500 MG TAB.SR.24H PO ×2 (09:51→17:33)
[2024-01-10] MEDS: LOSARTAN POTASSIUM 100 MG TABLET PO (09:51)
[2024-01-10] MEDS: THERAPEUTIC MULTIVITAMINS/MINERALS TAB (*BKC) 1 TABLET PO (09:51)
[2024-01-10] MEDS: MONTELUKAST SODIUM 10 MG TABLET PO (09:51)
[2024-01-10] MEDS: ASPIRIN 81 MG CHEWABLE TABLET PO (09:51)
[2024-01-10] MEDS: ATORVASTATIN 40 MG TABLET PO (09:52)
[2024-01-10] MEDS: CLOPIDOGREL BISULFATE 75 MG TABLET PO (09:52)
[2024-01-10] MEDS: hydroCHLOROthiazide 25 MG TABLET PO (09:52)
[2024-01-10] MEDS: INSULIN ASPART (*BKC) 100 UNITS/ML SUB-Q ×2 (09:55→17:32)
[2024-01-10] MEDS: ENOXAPARIN 40 MG/0.4 ML SYRINGE SUB-Q (09:55)
[2024-01-10 11:53] LABS: Glucose Point of Care 158 mg/dl (65-105)
[2024-01-10] MEDS: guaiFENesin 12 HR 600 MG TABCR PO ×2 (13:58→20:15)
--- NOTE | 2024-01-10 14:45 | PM.IMPN ---
Progress Note: A&P Assessment and Plan (1) Acute on chronic respiratory failure with hypoxia and hypercapnia: Code(s): J96.21 - Acute and chronic respiratory failure with hypoxia; J96.22 - Acute and chronic respiratory failure with hypercapnia Status: Acute Assessment and Plan: Patient normally wears 5L O2 at all times. She is noncompliant with NIV at home. Patient presents to the outside facility in respiratory distress. Symptoms improved after steroids and nebulizer treatment. Patient declined BiPAP. ABG 7. on O2. CXR showing RLL airspace disease, possibly pneumonia. She was transferred to [place] and continued on bronchodilators and steroids. Abx added. After admission here, her condition worsened and she agreed with BiPAP and wore this for a short period She is feeling better. She is stable on 7L HFNC Wean O2 as tolerated (2) Acute exacerbation of chronic obstructive airways disease: Code(s): J44.1 - Chronic obstructive pulmonary disease with (acute) exacerbation Status: Acute Assessment and Plan: As above. Continue IV Solu-Medrol and scheduled nebulizer treatments Pulmonology consulted for further recommendations Continue with Rocephin and azithromycin. Patient's home theophylline, Trelegy resumed. Mucinex added (3) Atrial fibrillation, new onset: Code(s): I48.91 - Unspecified atrial fibrillation Status: Acute Assessment and Plan: EKG (11/10/23 at 2200) was reviewed and probably AFib but not officially read. Repeat EKG (11/10/23 at 2351) more likely sinus tachycardia with short HI interval. [id number] - 4 (DM, HTN, CAD/PAD, gender) TSH last year<0.015 with elevated FT4. Patient mostly in NSR. Some artifact but not clear if she is in/out AFib. Will repeat TSH. Check Echo. No hx of GI bleed and she denies hx of bleeding issues. Add Eliquis. Start diltiazem so as to avoid bronchospasm from beta blockers. Stop ASA (4) Pneumonia: Qualifiers: Laterality: right Lung location: lower lobe of lung Pneumonia type: due to unspecified organism Qualified Code(s): J18.9 - Pneumonia, unspecified organism Code(s): J18.9 - Pneumonia, unspecified organism Status: Acute Assessment and Plan: CXR showing RLL airspace disease, possibly pneumonia. No fevers but with cough. BCx pending Sputum Cx pending Rocephin and Azithro started Follow up on culture results. (5) Type 2 diabetes mellitus: Qualifiers: Diabetes mellitus shelter insulin use: without shelter use Diabetes mellitus complication status: with neurologic complications Diabetes mellitus complication detail: with polyneuropathy Qualified Code(s): E11.42 - Type 2 diabetes mellitus with diabetic polyneuropathy Code(s): E11.9 - Type 2 diabetes mellitus without complications Status: Acute Assessment and Plan: The patient's blood glucose was reviewed on 01/09 Glucose remains reasonably well controlled. Continue AccuCheks covering with sliding scale. Hypoglycemia protocol available as needed. Continue to monitor (6) Hypertension: Qualifiers: Hypertension type: primary hypertension Qualified Code(s): I10 - Essential (primary) hypertension Code(s): I10 - Essential (primary) hypertension Status: Acute Assessment and Plan: Patient's blood pressure was reviewed on 01/09 Blood pressure remains well controlled. Will continue to monitor (7) Tobacco abuse: Code(s): Z72.0 - Tobacco use Status: Acute Assessment and Plan: Patient educated about the benefits of smoking cessation. The patient did not want a nicotine patch. She is not ready to quit smoking. Plan DVT prophylaxis - Eliquis Code status - Full Subjective Date/time seen: 01/10/24 14:45 Interval history: 63yo female with end-stage COPD, chronic hypoxic hypercapnic respiratory failure, severe OS
[2024-01-10] MEDS: BENZOCAINE/MENTHOL (*BKC) 18 EA LOZENGE 1 LOZENGE PO (15:02)
--- NOTE | 2024-01-10 16:02 | PM.CNPUL ---
Assessment and Plan Assessment and plan (1) Acute on chronic respiratory failure with hypoxia and hypercapnia: Code(s): J96.21 - Acute and chronic respiratory failure with hypoxia; J96.22 - Acute and chronic respiratory failure with hypercapnia Status: Acute Assessment and Plan: She has end-stage COPD, acute and chronic hypercapnic hypoxemic respiratory failure and continues to smoke, noncompliance with PAP therapy. I agree with her decision to change her code status. She was approved for home ventilator last year, has not been compliant so this is not an option for routine maintenance of her hypercapnic hypoxemic respiratory failure at home. (2) COPD exacerbation: Code(s): J44.1 - Chronic obstructive pulmonary disease with (acute) exacerbation Status: Acute Assessment and Plan: The patient had increasing shortness of breath but actually no increased sputum, or other symptoms that may suggest an acute exacerbation of COPD. (3) Tobacco abuse: Code(s): Z72.0 - Tobacco use Status: Acute Assessment and Plan: Last cigarette was a day or 2 before admission, previously smoked up to 2-3 packs per day but much less recently due to her increased symptoms. She is not really interested in stopping smoking. I did not spent time talking with her about tobacco cessation. Plan She does not have increased sputum production; main complaint is severe shortness of breath. She changed her code status to DNR, appropriate with end stage lung disease, inability to comply with non invasive device, stop smoking, use roflumilast due to loose bowel movements; I agree with bronchodilator therapy including nebulized albuterol with ipratropium, DuoNeb has less dilution than combining each separately, empiric antibiotics, steroids, and investigative studies are currently pending. I will follow closely with you. Thank you for this consultation. History of Present Illness History of Present Illness Consult date: 01/11/24 Requesting physician: Shazia Torres DO Chief complaint: COPD Exacerbation Narrative: Patient was seen January 09, 16:45 Room 202. NEW: Damaris Jacinto is a 63-year-old woman known to our service, was in the office December 27. She was admitted overnight with acute deterioration starting a week ago, had increasing cough without change in sputum, mainly more shortness of breath, was using her nebulizer almost every hour. She has changed her code status to DNR, do not resuscitate, which is appropriate with end stage COPD, on O2 and still smoking. She has COPD on oxygen, hypoxemic and hypercapnic chronic respiratory failure, and obesity hypoventilation syndrome. Has sleep apnea but intolerant to BiPAP. Her last cigarette was PMH: obesity, severe obstructive sleep apnea, COPD, chronic respiratory failure on oxygen, coronary artery disease status post stenting, peripheral vascular disease, and diabetes mellitus. Hospitalized 12/12/23 - 12/15/23 at [place] for COPD exacerbation. Last visit, patient underwent testing and was started on Daliresp in June 2023, not covered by insurance, became covered in 2023, started earlier this month from the office. She had a prednisone taper after discharge earlier in December. She is on 5 mg prednisone daily indefinitely . He also started her on theophylline about 3 months ago. She is maintained on Trelegy 100, Singulair, and albuterol neb PRN. She is using albuterol HFA about 2x per day and nebulizer treatments about 3 to 4 times per day lately. O2: Before her recent hospitalization she was using 4L/min O2 at rest, with ambulation, and with sleep. She states they performed a walk study at the time of discharge although I do not see this in the chart, but she was told to use 5L/min O
[2024-01-10 16:56] LABS: Glucose Point of Care 227 mg/dl (65-105)
[2024-01-10] MEDS: dilTIAZem HCL 30 MG TABLET PO (17:33)
[2024-01-10] MEDS: APIXABAN 5 MG TABLET PO (20:15)
[2024-01-10] MEDS: THEOPHYLLINE ANHYDROUS 200 MG ER 24 HR CAPSULE 400 MG PO (20:15)
[2024-01-10] MEDS: GABAPENTIN 300 MG CAPSULE 600 MG PO (20:15)
[2024-01-10 22:01] LABS: Glucose Point of Care 137 mg/dl (65-105)
[2024-01-11] VITALS (29 sets, daily range): BP systolic 97–118; BP diastolic 28–83; PULSE 74–111; RESP 16–28; TEMP 36.2–36.7; O2SAT 94–100
[2024-01-11] MEDS: IPRATROPIUM BR 0.02% INH SOLN 0.5 MG/2.5 ML VIAL INHALATION ×4 (00:30→12:59)
[2024-01-11] MEDS: dilTIAZem HCL 30 MG TABLET PO ×5 (00:54→23:30)
[2024-01-11] MEDS: AZITHROMYCIN 500 MG/NS 250 ML 500 MG/250 ML BAG 250 MG IVPB (01:23)
--- NOTE | 2024-01-11 01:33 | PC.NURSE ---
Patient stated that she gets anxious when coughing and she believes it makes her breathing worse. Dr. Torres made aware and responded with a new order for xanax 0.125mg ONCE.
[2024-01-11] MEDS: ALPRAZolam (*CRX) 0.125 MG TABLET PO (01:47)
[2024-01-11] MEDS: methylPREDNISolone SOD SUCC 125 MG VIAL 60 MG IV PUSH ×3 (02:29→17:14)
[2024-01-11 04:14] LABS: Basophils Percent Auto 0.1 % (0.2-1.2); Hematocrit 38.7 % (37.0-47.0); Hemoglobin 11.3 g/dL (12.0-15.0); Immature Granulocyte Percent A 0.8 % (0-0.5); Lymphocytes Absolute Auto 0.64 K/mm3 (0.9-3.2); Lymphocytes Percent Auto 5.2 % (18.3-44.2); Mean Corpuscular HGB Conc 29.2 g/dl (32-36); Mean Corpuscular Hemoglobin 27.5 pg (26-34); Mean Corpuscular Volume 94.2 fl (80-100); Mean Platelet Volume 8.6 fl (7.4-10.4); Monocytes Absolute Auto 0.6 K/mm3 (0.1-0.6); Monocytes Percent Auto 4.9 % (2.6-8.5); Platelet Count Result 522 k/mm3 (150-375); Red Blood Count 4.11 M/mm3 (4.2-5.4); Red Cell Distribution Width 14.5 % (11.5-14.5); White Blood Count 12.4 K/mm3 (4.5-10.0)
[2024-01-11 04:26] LABS: Albumin Level 3.9 g/dL (3.5-5.1); Blood Urea Nitrogen 28 mg/dL (7-17); Carbon Dioxide > 40 mmol/L (22-30); Chloride 89 mmol/L (98-107); Estimated CRCL calculation 62 ml/min; Estimated Glomerular Filt Rate > 60; Glucose 184 mg/dL (65-110); Magnesium 1.3 mg/dL (1.6-2.3); Phosphorus 3.8 mg/dL (2.5-4.5); Potassium 3.8 mmol/L (3.4-5.0); Sodium 137 mmol/L (137-145)
[2024-01-11 04:41] LABS: Hypochromasia 1+; Ovalocytes 1+; Platelet Estimate Increased (Adequate); Schistocytes None Seen
[2024-01-11 05:03] LABS: Thyroid Stimulating Hormone Reflex < 0.015 uIU/mL (0.465-4.68)
[2024-01-11 05:57] LABS: Free T4 Free Thyroxine Reflex 1.52 ng/dL (0.78-2.19)
[2024-01-11] MEDS: ALBUTEROL SULFATE NEB 2.5 MG/3 ML INH 5 MG INHALATION (07:11)
[2024-01-11] MEDS: FLUTICASONE/UMECLIDIN/VILANTER 100-62.5-25 MCG ELLIPTA 1 PUFF INHALATION (07:13)
[2024-01-11 07:25] LABS: Total Triiodothyronine (T3) 1.32 NG/ML (0.97-1.69)
--- NOTE | 2024-01-11 07:43 | ECHO_ITS ---
Patient Info Name: Damaris Jacinto Age: 63 years : 1960 Gender: Female Ht: 63 in Wt: 210 lbs BSA: 2.10 m2 HR: 111 bpm BP: 98 / 83 mmHg Heart Rhythm: Sinus Rhythm Technical Quality: Fair Exam Date: 01/11/2024 9:22 AM Exam Location: Echo Lab Patient Status: Inpatient Admit Date: 01/10/2024 Staff Ordering Physician: David Claudio MD Surgical Product Sales Consultant: Ananda Tatum RDCS Attending Provider: Shazia Torres DO Exam Type: CA echo doppler w bubble study Study Info Indications I48.1 - Persistent atrial fibrillation Complete two-dimensional, color flow and Doppler transthoracic echocardiogram is performed with agitated saline. History/Risk Factors Hypertension: Yes Diabetes Mellitus: Yes Summary 1. Left ventricular chamber dimension is normal. 2. Left ventricular systolic function appears to be probably normal, but cannot estimate LVEF as endocardial borders not well visualized. Consider repeating limited study with Definity for better assessment of LV systolic function. 3. The left ventricular diastolic function is grade I diastolic dysfunction. 4. Right ventricular systolic function is normal. 5. Right atrial chamber dimension is mildly enlarged. 6. Intact interatrial septum visualized by color flow and agitated saline imaging. Negative bubble study. 7. There is mild tricuspid valve regurgitation. Left Ventricle Left ventricular chamber dimension is normal. There is no increased left ventricular wall thickness. The left ventricular diastolic function is grade I diastolic dysfunction. Left ventricular systolic function appears to be probably normal, but cannot estimate LVEF as endocardial borders not well visualized. Consider repeating limited study with Definity for better assessment of LV systolic function. Right Ventricle Right ventricular chamber dimension is normal. Right ventricular systolic function is normal. Left Atria Left atrial chamber dimension is normal. Right Atria Right atrial chamber dimension is mildly enlarged. Atrial Septum Intact interatrial septum visualized by color flow and agitated saline imaging. Negative bubble study. Aortic Valve The aortic valve is not well visualized. There is no aortic valve regurgitation. Pulmonic Valve The pulmonic valve is not well visualized. Mitral Valve There is trace mitral valve regurgitation. Tricuspid Valve There is mild tricuspid valve regurgitation. Pericardium/Pleural There is no pericardial effusion. Inferior Vena Cava Dilated inferior vena cava with >50% collapse upon inspiration consistent with elevated right atrial pressure, 8 mmHg. Aorta The aortic root size at the sinus of Valsalva is normal. Left Ventricular Outflow Tract Name Value Normal LVOT 2D LVOT Diameter 2.0 cm LVOT Doppler LVOT Peak Gradient 5 mmHg LVOT Mean Gradient 2 mmHg LVOT VTI 25 cm LVOT VTI/AV VTI Ratio 0.7 LVOT Stroke Volume 75 ml LVOT CO 6.8 l/min LVOT CI 3.2 l/min/m2 Pulmonic Valve
[2024-01-11 08:18] LABS: Glucose Point of Care 209 mg/dl (65-105)
[2024-01-11] MEDS: MONTELUKAST SODIUM 10 MG TABLET PO (08:54)
[2024-01-11] MEDS: CLOPIDOGREL BISULFATE 75 MG TABLET PO (08:54)
[2024-01-11] MEDS: LOSARTAN POTASSIUM 100 MG TABLET PO (08:54)
[2024-01-11] MEDS: ATORVASTATIN 40 MG TABLET PO (08:54)
[2024-01-11] MEDS: PANTOPRAZOLE 40 MG TABLET PO (08:54)
[2024-01-11] MEDS: METOPROLOL SUCCINATE EXT REL 25 MG TABCR PO (08:54)
[2024-01-11] MEDS: hydroCHLOROthiazide 25 MG TABLET PO (08:54)
[2024-01-11] MEDS: guaiFENesin 12 HR 600 MG TABCR PO ×2 (08:54→20:08)
[2024-01-11] MEDS: APIXABAN 5 MG TABLET PO ×2 (08:54→20:08)
[2024-01-11] MEDS: metFORMIN HCL XR 500 MG TAB.SR.24H PO ×2 (08:54→17:14)
[2024-01-11] MEDS: THERAPEUTIC MULTIVITAMINS/MINERALS TAB (*BKC) 1 TABLET PO (08:54)
[2024-01-11] MEDS: INSULIN ASPART (*BKC) 100 UNITS/ML SUB-Q ×2 (08:55→20:47)
--- NOTE | 2024-01-11 11:35 | PM.IMPN ---
Progress Note: A&P Assessment and Plan (1) Acute on chronic respiratory failure with hypoxia and hypercapnia: Code(s): J96.21 - Acute and chronic respiratory failure with hypoxia; J96.22 - Acute and chronic respiratory failure with hypercapnia Status: Acute Assessment and Plan: Patient advice to quit smoking. Bronchodilators. Spirometry and chest x-ray showing right lower lobe airspace disease possible pneumonia Keeping BMI less than 25. Routine exercises. Pneumoniae and flu vaccines as advised Pulmonary rehab if indicated. For disease management to follow GOLD guidelines. Repeat hospitilaztion risk evaluation per CAT. Evaluation for oxygen as tolerated currently on 5 L with nasal cannula high-flow (2) Acute exacerbation of chronic obstructive airways disease: Code(s): J44.1 - Chronic obstructive pulmonary disease with (acute) exacerbation Status: Inactive (3) Atrial fibrillation, new onset: Code(s): I48.91 - Unspecified atrial fibrillation Status: Inactive Assessment and Plan: [id number] - 4 (DM, HTN, CAD/PAD, gender) TSH last year<0.015 with elevated FT4. Patient mostly in NSR. Some artifact but not clear if she is in/out AFib. 2D echo results with bubble study a weighted Add Eliquis. Start diltiazem so as to avoid bronchospasm from beta blockers. Stop ASA (4) Pneumonia: Qualifiers: Laterality: right Lung location: lower lobe of lung Pneumonia type: due to unspecified organism Qualified Code(s): J18.9 - Pneumonia, unspecified organism Code(s): J18.9 - Pneumonia, unspecified organism Status: Inactive Assessment and Plan: CXR showing RLL airspace disease, possibly pneumonia. BCx pending nasopharyngeal shows MRSA Nanci started Follow up on culture results. 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 Continue AccuCheks covering with sliding scale. Hypoglycemia protocol available as needed. Continue to monitor (6) Hypertension: Qualifiers: Hypertension type: primary hypertension Qualified Code(s): I10 - Essential (primary) hypertension Code(s): I10 - Essential (primary) hypertension Status: Acute Assessment and Plan: Patient's blood pressure was reviewed on 01/09 Blood pressure remains well controlled. Will continue to monitor (7) Tobacco abuse: Code(s): Z72.0 - Tobacco use Status: Acute Assessment and Plan: Patient educated about the benefits of smoking cessation. The patient did not want a nicotine patch. She is not ready to quit smoking. Plan Code status - Full DVT prophylaxis. Eliquis GI prophylaxis. Protonix All records reviewed Discussed plan of care with the nursing staff and with the patient in detail. Answered all questions and concerns from the patient. All labs have been reviewed. Code status updated dictation may have been done utilizing a voice recognition system. Attempts have been made to correct errors. However, there may be uncorrected grammatical, spelling, and recognition errors present. Subjective Date/time seen: 01/11/24 11:35 Interval history: patient denies any chest pain shortness a breath much improved Review of Systems Review of Systems: All systems reviewed & are unremarkable except as noted in HPI and below Exam Narrative: GENERAL: Well appearing, no acute distress. HEAD
[2024-01-11 12:08] LABS: Glucose Point of Care 182 mg/dl (65-105)
[2024-01-11] MEDS: ALBUTEROL SULFATE NEB 2.5 MG/3 ML INH INHALATION ×2 (13:02→16:30)
--- NOTE | 2024-01-11 13:43 | PM.PNPUL ---
Progress Note: A&P Assessment and Plan (1) Acute on chronic respiratory failure with hypoxia and hypercapnia: Code(s): J96.21 - Acute and chronic respiratory failure with hypoxia; J96.22 - Acute and chronic respiratory failure with hypercapnia Status: Acute Assessment and Plan: She has end-stage COPD, acute and chronic hypercapnic hypoxemic respiratory failure and continues to smoke, noncompliance with PAP therapy. I agree with her decision to change her code status. She was approved for home ventilator last year, has not been compliant so this is not an option for routine maintenance of her hypercapnic hypoxemic respiratory failure at home. (2) COPD (chronic obstructive pulmonary disease): Code(s): J44.9 - Chronic obstructive pulmonary disease, unspecified Status: Acute Assessment and Plan: The patient had increasing shortness of breath but actually no increased sputum, or other symptoms that may suggest an acute exacerbation of COPD. (3) Tobacco abuse: Code(s): Z72.0 - Tobacco use Status: Acute Assessment and Plan: Was smoking up until 1 day before admission; She is not really interested in stopping smoking. I did not spent time talking with her about tobacco cessation. (4) Pneumonia: Code(s): J18.9 - Pneumonia, unspecified organism Status: Acute Assessment and Plan: CXR 01/08 shows Subsegmental right lower lung airspace disease, pneumonia vs atelectasis however with degree of illness, we are treating as pneumonia; on IV azithromycin and ceftriaxone; cultures are pending Plan continue inhaled bronchodilators, albuterol and ipratropium q.4 hours P.r.n. albuterol Q 2 hours Continue steroids; watch clinically. Subjective Date/time seen: 01/11/24 13:43 Interval history: Damaris Jacinto is a 63-year-old woman known to our service, was in the office December 27. She was admitted overnight with acute deterioration starting a week ago, had increasing cough without change in sputum, mainly more shortness of breath, was using her nebulizer almost every hour. She has changed her code status to DNR,? do not resuscitate, which is appropriate with end stage COPD, on O2 and still smoking. She has COPD on oxygen, hypoxemic and hypercapnic chronic respiratory failure, and obesity hypoventilation syndrome. Has sleep apnea but intolerant to BiPAP. Her last cigarette was PMH: obesity, severe obstructive sleep apnea, COPD, chronic respiratory failure on oxygen, coronary artery disease status post stenting, peripheral vascular disease, and diabetes mellitus.? Hospitalized 12/12/23 - 12/15/23 at [facility] for COPD exacerbation. Last visit, patient underwent testing and was started on Daliresp in June 2023, not covered by insurance, became covered in 2023, started earlier this month from the office. She had a prednisone taper after discharge earlier in December. She is on 5 mg prednisone daily indefinitely . He also started her on theophylline about 3 months ago. She is maintained on Trelegy 100, Singulair, and albuterol neb PRN. She is using albuterol HFA about 2x per day and nebulizer treatments about 3 to 4 times per day lately. O2: Before her recent hospitalization she was using 4L/min O2 at rest, with ambulation, and with sleep. She states they performed a walk study at the time of discharge although I do not see this in the chart, but she was told to use 5L/min O2 at all times, so she has been using 5L/min O2 with sleep. She was previously using up to 7L/min O2 with sleep and this had been weaned over time until her hospital stay. Sleep: She has untreated sleep apnea and hypercapnic and hypoxemic respiratory failure but has no
[2024-01-11] MEDS: ACETAMINOPHEN 325 MG TABLET 650 MG PO (14:16)
[2024-01-11 16:01] LABS: Glucose Point of Care 171 mg/dl (65-105)
[2024-01-11] MEDS: THEOPHYLLINE ANHYDROUS 200 MG ER 24 HR CAPSULE 400 MG PO (20:08)
[2024-01-11] MEDS: GABAPENTIN 300 MG CAPSULE 600 MG PO (20:08)
[2024-01-11] MEDS: IPRATROPIUM 0.5 MG/ALBUTEROL SULFATE 2.5 MG AMPUL.NEB 3 ML INHALATION (20:13)
[2024-01-11 20:30] LABS: Glucose Point of Care 229 mg/dl (65-105)
[2024-01-12] VITALS (29 sets, daily range): BP systolic 110–134; BP diastolic 44–65; PULSE 82–112; RESP 16–20; TEMP 36.3–36.8; O2SAT 91–100
[2024-01-12] MEDS: IPRATROPIUM 0.5 MG/ALBUTEROL SULFATE 2.5 MG AMPUL.NEB 3 ML INHALATION ×6 (00:08→20:58)
[2024-01-12] MEDS: AZITHROMYCIN 500 MG/NS 250 ML 500 MG/250 ML BAG 250 MG IVPB (00:11)
[2024-01-12] MEDS: ACETAMINOPHEN 325 MG TABLET 650 MG PO (00:40)
[2024-01-12] MEDS: methylPREDNISolone SOD SUCC 125 MG VIAL 60 MG IV PUSH ×3 (02:02→19:11)
[2024-01-12] MEDS: ALPRAZolam (*CRX) 0.125 MG TABLET PO (02:02)
[2024-01-12] MEDS: dilTIAZem HCL 30 MG TABLET PO ×4 (05:17→23:47)
[2024-01-12] MEDS: FLUTICASONE/UMECLIDIN/VILANTER 100-62.5-25 MCG ELLIPTA 1 PUFF INHALATION (07:30)
[2024-01-12 07:49] LABS: Glucose Point of Care 178 mg/dl (65-105)
[2024-01-12] MEDS: APIXABAN 5 MG TABLET PO ×2 (08:21→20:48)
[2024-01-12] MEDS: LOSARTAN POTASSIUM 100 MG TABLET PO (08:21)
[2024-01-12] MEDS: ATORVASTATIN 40 MG TABLET PO (08:21)
[2024-01-12] MEDS: PANTOPRAZOLE 40 MG TABLET PO (08:21)
[2024-01-12] MEDS: metFORMIN HCL XR 500 MG TAB.SR.24H PO ×2 (08:21→17:15)
[2024-01-12] MEDS: THERAPEUTIC MULTIVITAMINS/MINERALS TAB (*BKC) 1 TABLET PO (08:21)
[2024-01-12] MEDS: CLOPIDOGREL BISULFATE 75 MG TABLET PO (08:21)
[2024-01-12] MEDS: METOPROLOL SUCCINATE EXT REL 25 MG TABCR PO (08:21)
[2024-01-12] MEDS: EMPAGLIFLOZIN 25 MG TABLET PO (08:21)
[2024-01-12] MEDS: MONTELUKAST SODIUM 10 MG TABLET PO (08:21)
[2024-01-12] MEDS: guaiFENesin 12 HR 600 MG TABCR PO ×2 (08:21→20:48)
[2024-01-12] MEDS: hydroCHLOROthiazide 25 MG TABLET PO (08:21)
--- NOTE | 2024-01-12 11:04 | PM.IMPN ---
Progress Note: A&P Assessment and Plan (1) Acute on chronic respiratory failure with hypoxia and hypercapnia: Code(s): J96.21 - Acute and chronic respiratory failure with hypoxia; J96.22 - Acute and chronic respiratory failure with hypercapnia Status: Acute Assessment and Plan: Patient advice to quit smoking. Bronchodilators. Spirometry and chest x-ray showing right lower lobe airspace disease possible pneumonia Keeping BMI less than 25. Routine exercises. Pneumoniae and flu vaccines as advised Pulmonary rehab if indicated. For disease management to follow GOLD guidelines. Repeat hospitilaztion risk evaluation per CAT. Evaluation for oxygen as tolerated currently on 5 L with nasal cannula high-flow (2) Acute exacerbation of chronic obstructive airways disease: Code(s): J44.1 - Chronic obstructive pulmonary disease with (acute) exacerbation Status: Inactive (3) Atrial fibrillation, new onset: Code(s): I48.91 - Unspecified atrial fibrillation Status: Inactive Assessment and Plan: [id number] - 4 (DM, HTN, CAD/PAD, gender) TSH last year<0.015 with elevated FT4. Patient mostly in NSR. Some artifact but not clear if she is in/out AFib. 2D echo results with bubble study a weighted been? do?Left ventricular systolic function appears to be probably normal Add Eliquis. Start diltiazem so as to avoid bronchospasm from beta blockers. Stop ASA (4) Pneumonia: Qualifiers: Laterality: right Lung location: lower lobe of lung Pneumonia type: due to unspecified organism Qualified Code(s): J18.9 - Pneumonia, unspecified organism Code(s): J18.9 - Pneumonia, unspecified organism Status: Inactive Assessment and Plan: CXR showing RLL airspace disease, possibly pneumonia. BCx pending nasopharyngeal shows MRSA Rocephin and Azithro started Follow up on culture results. (5) Type 2 diabetes mellitus: Qualifiers: Diabetes mellitus roasterman insulin use: without roasterman use Diabetes mellitus complication status: with neurologic complications Diabetes mellitus complication detail: with polyneuropathy Qualified Code(s): E11.42 - Type 2 diabetes mellitus with diabetic polyneuropathy Code(s): E11.9 - Type 2 diabetes mellitus without complications Status: Acute Assessment and Plan: The patient's blood glucose was reviewed on 01/09 Glucose remains reasonably well controlled. Continue AccuCheks covering with sliding scale. Hypoglycemia protocol available as needed. Continue to monitor (6) Hypertension: Qualifiers: Hypertension type: primary hypertension Qualified Code(s): I10 - Essential (primary) hypertension Code(s): I10 - Essential (primary) hypertension Status: Acute Assessment and Plan: Patient's blood pressure was reviewed on 01/09 Blood pressure remains well controlled. Will continue to monitor (7) Tobacco abuse: Code(s): Z72.0 - Tobacco use Status: Acute Assessment and Plan: Patient educated about the benefits of smoking cessation. The patient did not want a nicotine patch. She is not ready to quit smoking. Plan Code status - Full DVT prophylaxis. Eliquis GI prophylaxis. Protonix All records reviewed Discussed plan of care with the nursing staff and with the patient in detail. Answered all questions and concerns from the patient. All labs have been reviewed. Code status updated dictation may have been done utilizing a voice recognition system. Attempts have been made to correct errors. However, there may be uncorrected grammatical, spelling, and recognition errors present. Subjective Date/time seen: 01/12/24 11:04 Interval history: patient denies any chest pain shortness a breath much improved Exam Narrative: GEN: Alert, oriented, not in distress. She has severe hearing loss, reads lips, speaks denise
[2024-01-12] MEDS: INSULIN ASPART (*BKC) 100 UNITS/ML SUB-Q ×2 (11:38→20:47)
[2024-01-12 11:44] LABS: Glucose Point of Care 217 mg/dl (65-105)
[2024-01-12 15:43] LABS: Glucose Point of Care 137 mg/dl (65-105)
[2024-01-12] MEDS: THEOPHYLLINE ANHYDROUS 200 MG ER 24 HR CAPSULE 400 MG PO (20:48)
[2024-01-12] MEDS: GABAPENTIN 300 MG CAPSULE 600 MG PO (20:48)
[2024-01-12 20:50] LABS: Glucose Point of Care 223 mg/dl (65-105)
[2024-01-12] MEDS: guaiFENesin/DEXTROMETHORPHAN 10 ML UDC 5 ML PO (23:47)
[2024-01-13] VITALS (23 sets, daily range): BP systolic 116–125; BP diastolic 56–96; PULSE 67–100; RESP 16–22; TEMP 35.9–36.4; O2SAT 91–100
[2024-01-13] MEDS: IPRATROPIUM 0.5 MG/ALBUTEROL SULFATE 2.5 MG AMPUL.NEB 3 ML INHALATION ×5 (00:10→16:21)
[2024-01-13] MEDS: ALPRAZolam (*CRX) 0.125 MG TABLET PO (00:26)
[2024-01-13] MEDS: AZITHROMYCIN 500 MG/NS 250 ML 500 MG/250 ML BAG 250 MG IVPB (00:27)
[2024-01-13] MEDS: methylPREDNISolone SOD SUCC 125 MG VIAL 60 MG IV PUSH ×2 (02:14→12:15)
[2024-01-13] MEDS: dilTIAZem HCL 30 MG TABLET PO ×2 (05:18→12:15)
[2024-01-13] MEDS: FLUTICASONE/UMECLIDIN/VILANTER 100-62.5-25 MCG ELLIPTA 1 PUFF INHALATION (08:14)
[2024-01-13 08:30] LABS: Glucose Point of Care 244 mg/dl (65-105)
[2024-01-13] MEDS: CLOPIDOGREL BISULFATE 75 MG TABLET PO (09:15)
[2024-01-13] MEDS: APIXABAN 5 MG TABLET PO (09:15)
[2024-01-13] MEDS: EMPAGLIFLOZIN 25 MG TABLET PO (09:15)
[2024-01-13] MEDS: ATORVASTATIN 40 MG TABLET PO (09:15)
[2024-01-13] MEDS: guaiFENesin 12 HR 600 MG TABCR PO (09:15)
[2024-01-13] MEDS: metFORMIN HCL XR 500 MG TAB.SR.24H PO (09:15)
[2024-01-13] MEDS: THERAPEUTIC MULTIVITAMINS/MINERALS TAB (*BKC) 1 TABLET PO (09:16)
[2024-01-13] MEDS: MONTELUKAST SODIUM 10 MG TABLET PO (09:16)
[2024-01-13] MEDS: hydroCHLOROthiazide 25 MG TABLET PO (09:16)
[2024-01-13] MEDS: METOPROLOL SUCCINATE EXT REL 25 MG TABCR PO (09:16)
[2024-01-13] MEDS: PANTOPRAZOLE 40 MG TABLET PO (09:16)
[2024-01-13] MEDS: LOSARTAN POTASSIUM 100 MG TABLET PO (09:16)
[2024-01-13] MEDS: INSULIN ASPART (*BKC) 100 UNITS/ML SUB-Q (09:18)
[2024-01-13] MEDS: guaiFENesin/DEXTROMETHORPHAN 10 ML UDC 5 ML PO ×2 (09:24→13:21)
[2024-01-13 12:14] LABS: Glucose Point of Care 179 mg/dl (65-105)
--- NOTE | 2024-01-13 15:39 | PM.DS ---
DS: Admitting Diagnosis Discharge Date 01/13/2024 Admitting Diagnosis Shortness of breath DS: Discharge Diagnosis Discharge Diagnosis (1) Acute on chronic respiratory failure with hypoxia and hypercapnia: Code(s): J96.21 - Acute and chronic respiratory failure with hypoxia; J96.22 - Acute and chronic respiratory failure with hypercapnia Status: Acute (2) Acute exacerbation of chronic obstructive airways disease: Code(s): J44.1 - Chronic obstructive pulmonary disease with (acute) exacerbation Status: Inactive (3) Atrial fibrillation, new onset: Code(s): I48.91 - Unspecified atrial fibrillation Status: Inactive (4) Pneumonia: Qualifiers: Laterality: right Lung location: lower lobe of lung Pneumonia type: due to unspecified organism Qualified Code(s): J18.9 - Pneumonia, unspecified organism Code(s): J18.9 - Pneumonia, unspecified organism Status: Inactive (5) Type 2 diabetes mellitus: Qualifiers: Diabetes mellitus tank terminal gauger insulin use: without tank terminal gauger use Diabetes mellitus complication status: with neurologic complications Diabetes mellitus complication detail: with polyneuropathy Qualified Code(s): E11.42 - Type 2 diabetes mellitus with diabetic polyneuropathy Code(s): E11.9 - Type 2 diabetes mellitus without complications Status: Acute (6) Hypertension: Qualifiers: Hypertension type: primary hypertension Qualified Code(s): I10 - Essential (primary) hypertension Code(s): I10 - Essential (primary) hypertension Status: Acute (7) Tobacco abuse: Code(s): Z72.0 - Tobacco use Status: Acute DS: Summary Hospital Course Hospital Course: This is a 63-year-old female with chronic COPD chronic respiratory failure on home oxygen and trilogy severe sleep apnea however noncompliant with positive pressure ventilation coronary artery disease with stent peripheral vascular disease and diabetes presented with shortness of breath for several days with worsening. She was in respiratory distress on presentation. More hypoxic needing higher flow oxygen supplementation. Workup revealed right lower lobe pneumonia acute on chronic hypoxic hypercapnic respiratory failure treated for associated COPD exacerbation. Pulmonary consulted. Has underlying point states COPD. Echocardiogram 01/11/2024 showed grade 1 diastolic dysfunction probably normal EF Goals of care discussion was done during hospital stay and proceed opted to go home on hospice care. Patient also was tachycardic on presentation EKG showed AFib with RVR which is new diagnosis. Some telemetry reading were sinus rhythm some could be artifact but not clear if she has it at out of AFib. Diltiazem was started which controlled her heart rate. Eliquis was also started as chads Vasc score was 4. Aspirin was discontinued because of this. Time Spent with Patient Time attestation: Total time spent providing and/or coordinating discharge services:35 mins Exam Narrative: GEN: Alert, oriented, not in distress. She has severe hearing loss, reads lips, speaks clearly HEENT: pupils are equal, EOMI, symmetrical face; oral membranes moist, no erythema or exudate, no sinus tenderness NECK: Trachea is midline CHEST: Equal air entry, symmetric excursion, decreased breath sounds, minimal expiratory wheeze CV: Regular S1S2 no m/g/r ABD : (+) bowel sounds Extremities : no clubbing, cyanosis, trace edema in lower legs PSYCH: normal thought and speech DS: Data Data Completed and Pending Labs on day of discharge: Labs from last 24 hours 01/13/24 01/13/24 01/12/24 11:39 07:29 20:46 POC Capillary Glucose 179 H 244 H 223 H 01/12/24 15:32 POC Capillary Glucose 137 H Discharge Plan Discharge Attending physician on discharge: Joe Sanchez Consulting providers: Courtney Britton Discharging Clinician: Joe Sanchez
[2024-01-13 16:57] LABS: Glucose Point of Care 168 mg/dl (65-105)
== END 2024-01-13 18:15 | disposition hospice, home (50) | DRG 193 ==
PROVIDERS: Internal Medicine; Admitting Provider Internal Medicine; PCP Internal Medicine; Visit Provider Internal Medicine
DX: J18.9 Pneumonia, unspecified organism (principal); J96.02 Acute respiratory failure with hypercapnia; J44.1 Chronic obstructive pulmonary disease with (acute) exacerbation; J96.12 Chronic respiratory failure with hypercapnia; E66.2 Morbid (severe) obesity with alveolar hypoventilation; J44.0 Chronic obstructive pulmonary disease with (acute) lower respiratory infection; I25.10 Atherosclerotic heart disease of native coronary artery without angina pectoris; I10 Essential (primary) hypertension; I48.91 Unspecified atrial fibrillation; E11.51 Type 2 diabetes mellitus with diabetic peripheral angiopathy without gangrene; E78.5 Hyperlipidemia, unspecified; K21.9 Gastro-esophageal reflux disease without esophagitis; F17.210 Nicotine dependence, cigarettes, uncomplicated; F32.A Depression, unspecified; Z20.822 Contact with and (suspected) exposure to COVID-19; Z66 Do not resuscitate; Z99.81 Dependence on supplemental oxygen; Z68.37 Body mass index [BMI] 37.0-37.9, adult; Z95.5 Presence of coronary angioplasty implant and graft; Z95.820 Peripheral vascular angioplasty status with implants and grafts; Z79.82 Long term (current) use of aspirin; Z79.02 Long term (current) use of antithrombotics/antiplatelets; Z91.199 Patient's noncompliance with other medical treatment and regimen due to unspecified reason
CPT/HCPCS: 36415; 80069; 82948; 83735; 84439; 84443; 84480; 85025; 87070; 87205; 87637; 93005; 93306; 94640; 96365; 96367; 96372; 96375; A9270; G0378; G0379; J0456; J0696; J1650; J1815; J2919